=== PATIENT | male | born 1950 | race Caucasian/White ===

== ENCOUNTER → 2018-07-05 06:57 | Outpatient (CLI) | payer MEDICARE, OTHER, SELFPAY ==
[2018-07-05 08:14] LABS: Add Manual Diff / Slide Review NO; Basophils Percent Auto 0.6 % (0-2); Eosinophils Percent Auto 3.3 % (2-4); Hematocrit 46.9 % (41-53); Hemoglobin 16.2 g/dL (13.5-17.5); Lymphocytes Percent Auto 24.8 % (25-40); Mean Corpuscular HGB Conc 34.4 % (30-36); Mean Corpuscular Hemoglobin 31.6 PG (26-34); Mean Corpuscular Volume 91.6 fL (80-100); Monocytes Percent Auto 11.1 % (3-14); Neutrophils Absolute Auto 2600 /uL (3000-5900); Neutrophils Percent Auto 60.2 % (50-75); Platelet Count 271 X10^3/uL (150-400); Red Blood Cell Count 5.12 X10^6/uL (4.5-5.9); Red Cell Distribution Width 13.1 % (11.6-14.8); White Blood Cell Count 4.3 X10^3/uL (4.5-11.0)
[2018-07-05 08:25] LABS: Alanine Aminotransferase 47 IU/L (21-72); Albumin 4.4 g/dL (3.5-5.0); Albumin Globulin Ratio 1.5 (1.0-2.8); Alkaline Phosphatase 66 U/L (38-126); Aspartate Aminotransferase 33 IU/L (17-59); Bilirubin Total 0.9 mg/dL (0.2-1.3); Blood Urea Nitrogen 22 mg/dL (9-20); Calcium 8.9 mg/dL (8.4-10.2); Carbon Dioxide 27 mmol/L (22-32); Chloride 107 mmol/L (98-107); Cholesterol 173 mg/dL (140-199); Estimated Glomerular Filt Rate > 60.0 mL/min (>60); Glucose 96 mg/dL (80-110); HDL Cholesterol 37 mg/dL (40-60); HEMOLYSIS < 15 (0-50); LDL Cholesterol Calculated 99 mg/dL (<100); Potassium 4.7 mmol/L (3.4-5.1); Sodium 143 mmol/L (137-145); Total Protein 7.4 g/dL (6.3-8.2); Triglycerides 187 mg/dL (35-150)
[2018-07-05 08:53] LABS: TSH w/ Reflex to FT4 3.42 uIU/mL (0.47-4.68)
== END ==
PROVIDERS: PCP Family Medicine; Visit Provider Family Medicine
DX: E78.5 Hyperlipidemia, unspecified (principal)
CPT/HCPCS: 36415; 80053; 80061; 84153; 84443; 85025

== ENCOUNTER → 2020-03-24 08:11 | Outpatient (CLI) | payer MEDICARE, OTHER, SELFPAY ==
[2020-03-24 08:48] LABS: Add Manual Diff / Slide Review NO; Basophils Absolute Auto 0 /uL (0-100); Basophils Percent Auto 0.8 % (0-2); Eosinophils Absolute Auto 100 /uL (0-450); Eosinophils Percent Auto 2.9 % (2-4); Hematocrit 46.7 % (41-53); Lymphocytes Absolute Auto 1200 /uL (1100-4500); Lymphocytes Percent Auto 29.8 % (25-40); Mean Corpuscular HGB Conc 34.2 % (30-36); Mean Corpuscular Hemoglobin 31.8 PG (26-34); Mean Corpuscular Volume 92.9 fL (80-100); Monocytes Absolute Auto 500 /uL (0-900); Monocytes Percent Auto 11.1 % (3-14); Neutrophils Absolute Auto 2300 /uL (1500-7000); Neutrophils Percent Auto 55.4 % (50-75); Platelet Count 235 X10^3/uL (150-400); Red Blood Cell Count 5.02 X10^6/uL (4.5-5.9); Red Cell Distribution Width 13.3 % (11.6-14.8); White Blood Cell Count 4.1 X10^3/uL (4.5-11.0)
[2020-03-24 09:17] LABS: Alanine Aminotransferase 32 IU/L (<50); Albumin 4.2 g/dL (3.5-5.0); Albumin Globulin Ratio 1.6 (1.0-2.8); Alkaline Phosphatase 72 U/L (38-126); Aspartate Aminotransferase 29 IU/L (17-59); BUN Creatinine Ratio 18.6 (6-22); Blood Urea Nitrogen 19 mg/dL (9-20); Calcium 9.5 mg/dL (8.4-10.2); Carbon Dioxide 28 mmol/L (22-32); Chloride 106 mmol/L (98-107); Cholesterol 201 mg/dL (140-199); Estimated Glomerular Filt Rate > 60.0 mL/min (>60); Globulin 2.7 g/dL (1.7-4.1); Glucose 108 mg/dL (80-110); HDL Cholesterol 46 mg/dL (40-60); HEMOLYSIS < 15 (0-50); LDL Cholesterol Calculated 121 mg/dL (<100); Potassium 4.1 mmol/L (3.4-5.1); Sodium 139 mmol/L (137-145); Total Protein 6.9 g/dL (6.3-8.2); Triglycerides 171 mg/dL (35-150)
[2020-03-24 09:42] LABS: TSH w/ Reflex to FT4 4.27 uIU/mL (0.47-4.68)
== END ==
PROVIDERS: PCP Family Medicine; Referring Provider Family Medicine; Visit Provider Family Medicine
DX: E78.5 Hyperlipidemia, unspecified (principal)
CPT/HCPCS: 36415; 80053; 80061; 84443; 85025

== ENCOUNTER → 2020-11-17 12:54 | Outpatient (CLI) | payer MEDICARE, OTHER, SELFPAY ==
[2020-11-17] MEDS: COVID-19 VACC #1, MRNA(MOD) 100 MCG/0.5 ML VIAL IM (13:06)
== END ==
PROVIDERS: PCP Family Medicine; Visit Provider Internal Medicine
DX: Z23 Encounter for immunization (principal)
CPT/HCPCS: 0011A; 91301

== ENCOUNTER → 2020-12-15 12:04 | Outpatient (CLI) | payer MEDICARE, OTHER, SELFPAY ==
[2020-12-15] MEDS: COVID-19 VACC #2, MRNA(MOD) 100 MCG/0.5 ML VIAL IM (12:13)
== END ==
PROVIDERS: PCP Family Medicine; Visit Provider Internal Medicine
DX: Z23 Encounter for immunization (principal)
CPT/HCPCS: 0012A; 91301

== ENCOUNTER → 2021-05-02 08:47 | Outpatient (CLI) | payer MEDICARE, OTHER, SELFPAY ==
[2021-05-02 09:43] LABS: Add Manual Diff / Slide Review NO; Basophils Absolute Auto 0 /uL (0-100); Basophils Percent Auto 0.6 % (0-2); Eosinophils Absolute Auto 200 /uL (0-450); Eosinophils Percent Auto 4.5 % (2-4); Hematocrit 48.6 % (41-53); Hemoglobin 16.7 g/dL (13.5-17.5); Lymphocytes Absolute Auto 1200 /uL (1100-4500); Lymphocytes Percent Auto 26.5 % (25-40); Mean Corpuscular HGB Conc 34.3 % (30-36); Mean Corpuscular Hemoglobin 31.8 PG (26-34); Mean Corpuscular Volume 92.8 fL (80-100); Monocytes Absolute Auto 600 /uL (0-900); Neutrophils Absolute Auto 2400 /uL (1500-7000); Neutrophils Percent Auto 55.4 % (50-75); Platelet Count 220 X10^3/uL (150-400); Red Blood Cell Count 5.23 X10^6/uL (4.5-5.9); Red Cell Distribution Width 13.2 % (11.6-14.8); White Blood Cell Count 4.4 X10^3/uL (4.5-11.0)
[2021-05-02 10:00] LABS: Alanine Aminotransferase 35 IU/L (<50); Albumin 4.2 g/dL (3.5-5.0); Albumin Globulin Ratio 1.4 (1.0-2.8); Alkaline Phosphatase 70 U/L (38-126); Aspartate Aminotransferase 33 IU/L (17-59); BUN Creatinine Ratio 22.3 (6-22); Blood Urea Nitrogen 23 mg/dL (9-20); Calcium 9.7 mg/dL (8.4-10.2); Carbon Dioxide 28 mmol/L (22-32); Chloride 108 mmol/L (98-107); Estimated Glomerular Filt Rate > 60.0 mL/min (>60); Globulin 3.1 g/dL (1.7-4.1); Glucose 110 mg/dL (80-110); HEMOLYSIS 15 (0-50); Lipase 47 U/L (23-300); Sodium 142 mmol/L (137-145); Total Protein 7.3 g/dL (6.3-8.2)
[2021-05-02 10:27] LABS: Prostate Specific Antigen Scrn 0.702 ng/mL (0.1-4.0)
[2021-05-02 10:42] LABS: TSH w/ Reflex to FT4 4.56 uIU/mL (0.47-4.68)
== END ==
PROVIDERS: PCP Family Medicine; Referring Provider Family Medicine; Visit Provider Family Medicine
DX: E78.5 Hyperlipidemia, unspecified (principal); Z12.5 Encounter for screening for malignant neoplasm of prostate
CPT/HCPCS: 36415; 80053; 83690; 84443; 85025; G0103

== ENCOUNTER → 2021-10-10 09:22 | Outpatient (CLI) | payer MEDICARE, OTHER, SELFPAY ==
[2021-10-10 12:07] LABS: COVID19 -Nasal RAPID Negative (Negative)
== END ==
PROVIDERS: PCP Family Medicine; Visit Provider Family Medicine Sleep Medicine
DX: Z20.822 Contact with and (suspected) exposure to COVID-19 (principal)
CPT/HCPCS: 87635; C9803

== ENCOUNTER 2021-10-11 08:57 | Day surgery (SDC) | payer MEDICARE, OTHER, SELFPAY ==
[2021-10-11] MEDS: PROPARACAINE 0.5% OPHTH SOL 2 DROPS EYE-OP (09:55)
[2021-10-11 10:01] VITALS: BP 140/92; PULSE 79; RESP 16; TEMP 36.9; O2SAT 96; BMI 31.1
[2021-10-11] MEDS: CATARACT EYE COMPOUND (10 DROPS/SYRINGE) 3 DROPS EYE-OP (10:18)
--- NOTE | 2021-10-11 10:47 | P.OP.PRE_ITS ---
Pre-operative Note Interval Note History & Physical reviewed/Exam performed by Physician: Yes Changes to H&P: No Addendum Addendum Note: There are no non surgical alternatives to the patient's condition. Deteriora tion of the patient's condition is expected. Delay may result in more complex future surgery.
--- NOTE | 2021-10-11 10:48 | PM.OP.1 ---
Operative Date/Time/Diagnoses Pre-op diagnosis: Nuclear cataract right eye Procedure & Clinicians Procedure: Cataract Surgery Same procedure as scheduled: Yes Surgeon: Andi Dalton Anesthesia Type: MAC +/- and Sedation Operative Notes Procedure in detail: Patient brought to the operating suite. Tetracaine drops placed in the right eye. Patient was prepped and draped in sterile manner. Wire lid speculum was placed in the eye. Betadine drops were placed on the eye. This was irrigated. Lidocaine jelly was placed on the eye. A paracentesis port was created with a side-port blade. 0.1 mL 1% preservative free lidocaine was injected into the anterior chamber. The anterior chamber was deepened with viscoelastic. 2.6 mm keratome was used to create a temporal clear corneal incision. Cystotome and Utrata forceps were used to create continuous tear capsulorrhexis. Balanced salt solution was used to hydro dissect the nucleus. The phacoemulsification handpiece was inserted and the nucleus was removed using the stop and chop technique. The irrigation aspiration handpiece was inserted and the remaining cortex was removed. Anterior chamber was deepened with viscoelastic. An Hebert [id number] intraocular lens with a power of 20.5 was injected into the capsular bag. Irrigation aspiration handpiece was inserted and the remaining viscoelastic was removed. Incision was hydrated with balanced salt solution and found to be leak free with pressure with Weck-Fannie sponges. 0.1 mL Vigamox injected anterior chamber. 0.3 mL Kenalog 10 mg was injected subconjunctivally. Lid speculum was removed. The patient left the operating room in excellent condition. Complications: none Post-operative Condition: stable Disposition: same day surgery
[2021-10-11] MEDS: MOXIFLOXACIN INJ 4 MG/0.8 ML VIAL 0.5 MG EYE-OP (10:59)
[2021-10-11] MEDS: HYALURONATE SODIUM 30 MG-10 MG/ML SYRINGES 1 BOX INTRAOCULA (10:59)
[2021-10-11] MEDS: TRIAMCINOLONE 50 MG/5 ML VIAL INJ (11:00)
[2021-10-11] MEDS: BALANCED SALT IRRIG SOLN NO.2 500 ML, EPINEPHrine 1 MG IRR (11:00)
[2021-10-11] MEDS: PHENYLEPHRINE/LIDOCAINE VIAL (OR) 0.2 ML EYE-OP (11:00)
[2021-10-11] MEDS: TETRACAINE 0.5% OPHTH DROPS 4 ML 2 DROPS EYE-OP (11:00)
[2021-10-11] MEDS: LIDOCAINE 2% (GLYDO) 6 ML GEL TOP (11:01)
[2021-10-11 11:21] VITALS: BP 130/89; PULSE 69; RESP 16; TEMP 36.6; O2SAT 97
== END 2021-10-11 11:47 | disposition home or self-care (01) ==
PROVIDERS: PCP Family Medicine; Referring Provider Ophthalmology; Visit Provider Ophthalmology
PROC: (CPT 66984; principal; 2021-10-11 10:45)
DX: H25.11 Age-related nuclear cataract, right eye (principal)
CPT/HCPCS: 66984; J0171; J2250; J3301

== ENCOUNTER → 2021-10-24 13:58 | Outpatient (CLI) | payer MEDICARE, OTHER, SELFPAY ==
[2021-10-24 16:39] LABS: COVID19 -Nasal RAPID Negative (Negative)
== END ==
PROVIDERS: PCP Family Medicine; Visit Provider Family Medicine Sleep Medicine
DX: Z20.822 Contact with and (suspected) exposure to COVID-19 (principal)
CPT/HCPCS: 87635; C9803

== ENCOUNTER → 2021-10-25 08:21 | Day surgery (SDC) | payer MEDICARE, OTHER, SELFPAY ==
[2021-10-25] MEDS: CATARACT EYE COMPOUND (10 DROPS/SYRINGE) 3 DROPS EYE-OP (09:05)
[2021-10-25] MEDS: PROPARACAINE 0.5% OPHTH SOL 2 DROPS EYE-OP (09:05)
[2021-10-25 09:16] VITALS: BP 142/92; PULSE 70; RESP 18; TEMP 36.4; O2SAT 99; BMI 32.1
--- NOTE | 2021-10-25 10:10 | P.OP_ITS ---
Operative Date/Time/Diagnoses Pre-op diagnosis: Nuclear Cataract Left eye Post-op diagnosis: same Procedure & Clinicians Surgeon: Andi Dalton Anesthesia Type: MAC +/- and Sedation Operative Notes Procedure in detail: Patient brought to the operating suite. Tetracaine drops placed in the left eye. Marking instrument was used to rodo the vertical and horizontal meridians. Patient was prepped and draped in sterile manner. Wire lid speculum was placed in the eye. Marking instrument was used to rodo the 150 degree meridian. Betadine drops were placed on the eye. This was irrigated. Lidocaine jelly was placed on the eye. A paracentesis port was created with a side-port blade. 0.1 mL 1% preservative free lidocaine was injected into the anterior chamber. The anterior chamber was deepened with viscoelastic. 2.6 mm keratome was used to create a temporal clear corneal incision. Cystotome and Utrata forceps were used to create continuous tear capsulorrhexis. Balanced salt solution was used to hydro dissect the nucleus. The phacoemulsification handpiece was inserted and the nucleus was removed using the stop and chop technique. The irrigation aspiration handpiece was inserted and the remaining cortex was removed. Anterior chamber was deepened with viscoelastic. An Hebert [id number] intraocular lens with a power of 20.0 was injected into the capsular bag. Irrigation aspiration reyes ndpiece was inserted and the remaining viscoelastic was removed. The lens was rotated to the 150 degree meridian. Incision was hydrated with balanced salt solution and found to be leak free with pressure with Weck-Fannie sponges. 0.1 mL Vigamox injected anterior chamber. 0.3 mL Kenalog 10 mg was injected subconjunctivally. Lid speculum was removed. The patient left the operating room in excellent condition. Complications: none Post-operative Condition: stable Disposition: same day surgery
--- NOTE | 2021-10-25 10:10 | PM.PREOP ---
Pre-operative Note Interval Note History & Physical reviewed/Exam performed by Physician: Yes Changes to H&P: No
--- NOTE | 2021-10-25 12:44 | SUR.PREOP ---
1239 late entry: case cancelled due to abnormal humidity in the ORs. Pt stable on feet, voided. Ambulated from department. Pleasant and understanding.
--- NOTE | 2021-10-25 12:44 | SUR.PREOP ---
Pt's case is cancelled and pt left in stable condition.
== END | disposition home or self-care (01) ==
PROVIDERS: PCP Family Medicine; Referring Provider Ophthalmology; Visit Provider Ophthalmology
DX: H25.12 Age-related nuclear cataract, left eye (principal); Z53.09 Procedure and treatment not carried out because of other contraindication
CPT/HCPCS: 66984; J2250

== ENCOUNTER → 2021-10-31 09:37 | Outpatient (CLI) | payer MEDICARE, OTHER, SELFPAY ==
[2021-10-31 10:36] LABS: COVID19 -Nasal RAPID Negative (Negative)
== END ==
PROVIDERS: PCP Family Medicine; Visit Provider Surgery
DX: Z01.812 Encounter for preprocedural laboratory examination (principal); Z20.822 Contact with and (suspected) exposure to COVID-19
CPT/HCPCS: 87635; C9803

== ENCOUNTER 2021-11-01 08:09 | Day surgery (SDC) | payer MEDICARE, OTHER, SELFPAY ==
--- NOTE | 2021-11-01 | PATH_ITS ---
[facility] Accession Number: [id number] No. of containers..02 Tissue . 01 Material submitted: . PART A: colon - ASCENDING COLON POLYP PART B: sigmoid colon - SIGMOID COLON POLYP . 02 Diagnosis: A. Ascending Colon Polyp, Polypectomy: Tubular adenoma. . B. Sigmoid Colon Polyp, Polypectomy: Tubular adenoma. [facility] 11/04/2021 1542 Local . 02 Electronically signed: . Norah Blackburn MD, Pathologist NPI- [id number] . 01 Gross description: . Part A: ASCENDING COLON POLYP: Received in formalin are 3 fragment(s) of eugene, soft tissue measuring 0.5 x 0.2 x 0.2 cm to 0.1 x 0.1 x 0.1 cm submitted entirely in 1 cassette(s) Part B: SIGMOID COLON POLYP: Received in formalin is 1 fragment(s) of eugene, soft tissue measuring 0.3 x 0.3 x 0.2 cm submitted entirely in 1 cassette(s) /CPE 11/03/2021 1416 Local . 02 Pathologist provided ICD-10: D12.2, D12.5 . 02 CPT . 685960, 853974 Specimen Comment: A courtesy copy of this report has been sent to [phone] Performed at: 01 [facility] [address], [place], [place] [id number] MD Derik Nicole MD Phone: [phone] Performed at: 02 [facility] [address] [place], [place] [id number] MD Lori Lucero MD Phone: [phone]
[2021-11-01 08:25] VITALS: BMI 31.8
[2021-11-01] MEDS: LACTATED RINGERS 1,000 ML 200 ML IV (08:37)
[2021-11-01 08:41] VITALS: BP 138/80; PULSE 73; RESP 18; TEMP 36.7; O2SAT 98
--- NOTE | 2021-11-01 09:33 | P.HP_ITS ---
History of Present Illness History of Present Illness Date Patient Seen: 11/01/21 Time Patient Seen: 09:33 Chief complaint: SDC Narrative: The patient presents for colorectal sreening. Previous colonoscopy normal 12 - 15 years ago. No personal or family history of colon cancer. On further history denies any recent gastrointestinal symptoms. No nausea, vomiting, abdominal pain, loss of appetite, unexplained weight loss, change in bowel habits, diarrhea, constipation, melena, hematochezia, or bright red blood per rectum. Patient History Medical History (Updated 11/01/21 @ 08:26 by Nila García RN) Hearing loss History of COVID-19 (~08/28/21) Vertigo Surgical History (Updated 11/01/21 @ 08:24 by Nila García RN) History of repair of left rotator cuff Status post cataract extraction and insertion of intraocular lens of right eye Family & Social History Social History: household members none Tobacco & Substance use: Tobacco type cigars Smoking Status Current some day smoker alcohol intake current alcohol intake frequency a few times a week Substance Use Type marijuana Meds Home Medications and Allergies Home Medications Medication Instructions Recorded Confirmed Type No Known Home Medications 03/10/20 11/01/21 History Allergies Allergy/AdvReac Type Severity Reaction Status Date / Time No Known Drug Allergies Allergy Verified 11/01/21 08:18 Exam Vital Signs (past 8 hours): - 11/01/21 08:41 Temperature 98.0 F Pulse Rate 73 Respiratory Rate 18 Blood Pressure 138/80 Pulse Oximetry 98 Oxygen Delivery Method Room Air Narrative Exam Narrative: GENERAL: Obese male in no apparent distress HEENT: No scleral icterus CV: Regular rate, no peripheral edema LUNGS: No increased work of breathing. Patient speaks in full sentences without oxygen support. ABDOMEN: Soft, non-tender, non-distended NEURO: Nonfocal, normal strength throughout, SKIN: Warm and dry Assessment & Plan Assessment & Plan narrative: The patient requires colorectal screening and colonoscopy is recommended. Technical details were discussed. Risks, benefits, alternatives explained. Risks including but not limited to myocardial infarction, aspiration, bleeding, pain, missed lesion, incomplete examination, need for further radiographic studies, colonic perforation, and need for major abdominal surgery were discussed. All questions were answered to their satisfaction, and they are in agreement with this plan. Time Spent With Patient Critical Care time: I spent a total of [] minutes of critical care time on this patient's care today; this time is exclusive of procedural time.
[2021-11-01] MEDS: fentaNYL 250 MCG/5 ML INJ IV (09:54)
[2021-11-01] MEDS: MIDAZOLAM 5 MG/5 ML VIAL IV (09:56)
--- NOTE | 2021-11-01 10:04 | PM.OP.COLON ---
Operative Date/Time/Diagnoses Date of procedure: 11/01/21 Time of procedure: 10:04 Pre-op diagnosis: Screening colonoscopy Post-op diagnosis: same Procedure & Clinicians Study performed: Colonoscopy Same procedure as scheduled: Yes Indications: Screening Surgeon: Dallas Raphael Procedure Notes Procedure in detail: Medications: Conscious sedation using 4mg IV midazolam and 100mcg IV of fentanyl The history and physical was performed/updated and the patient is ASA class is 1. The procedure was discussed in detail with the patient. Potential risks complications including infection, bleeding, missed diagnosis, perforation, need for surgery, and were explained. Their questions were answered and informed consent was obtained. Patient was brought to the procedure room and placed standard monitoring equipment. The patient's vital signs were monitored continuously throughout the entire procedure. Prior to starting time-out was performed. The patient was placed in the left lateral recumbent position. Procedural sedation was administered. Examination began with a thorough inspection of the perianal area there was no evidence of fissures, fistulae, external hemorrhoids or cutaneous malignancy. The colonoscopy scope was then placed into the anal canal and was advanced to the cecum, which was identified by the ileocecal valve, the appendiceal orifice and the confluence of the taenia. The scope was then slowly withdrawn examining colon thoroughly in all directions, irrigating it of any residual stool. FINDINGS 1. Two polyps in the ascending colon both less than 1 cm removed with combination of snare cold and Jumbo forceps. 2. One polyp in the sigmoid colon 5 mm removed with Jumbo forceps The patient tolerated the procedure well. They will be discharged once criteria are met. The prep was of good/excellent quality. The withdrawl time was 11 minutes. The sedation time was 19 minutes. Specimen(s): other (Ascending colon, sigmoid colon polyps) Complications: none Impression: Colonic polyps Post-procedure Recommendations: Colonoscopy in 3 years Disposition: same day surgery
[2021-11-01 10:08] VITALS: BP 126/83; PULSE 69; RESP 12; TEMP 35.9; O2SAT 93
[2021-11-01 10:14] VITALS: BP 120/89; PULSE 69; RESP 15; TEMP 36; O2SAT 95
[2021-11-01 10:19] VITALS: BP 125/82; PULSE 65; RESP 15; O2SAT 96
--- NOTE | 2021-11-01 10:21 | SUR.PHASEI ---
Discharge instructions reviewed with pt and he verbalized understanding. Tolerating ice chips with no c/o nausea noted.
[2021-11-01 10:37] VITALS: BP 129/77; PULSE 79; RESP 18; TEMP 36.9; O2SAT 98
--- NOTE | 2021-11-01 11:10 | SUR.PHASEII ---
Late entry: pt ready to go, belly soft , left in stable condition
== END 2021-11-01 10:45 | disposition home or self-care (01) ==
PROVIDERS: PCP Family Medicine; Referring Provider Surgery; Visit Provider Surgery
PROC: 0DJD8ZZ Inspection of Lower Intestinal Tract, Via Natural or Artificial Opening Endoscopic (ICD-10-PCS; CPT 45378; principal; 2021-11-01 09:15)
DX: Z12.11 Encounter for screening for malignant neoplasm of colon (principal); D12.2 Benign neoplasm of ascending colon; D12.5 Benign neoplasm of sigmoid colon
CPT/HCPCS: 45385; 45380; 99152; J2250; J3010

== ENCOUNTER → 2021-11-07 11:30 | Outpatient (CLI) | payer MEDICARE, SELFPAY ==
[2021-11-07 15:08] LABS: COVID19 -Nasal RAPID Negative (Negative)
== END ==
PROVIDERS: PCP Family Medicine; Visit Provider Family Medicine Sleep Medicine
DX: Z20.822 Contact with and (suspected) exposure to COVID-19 (principal)
CPT/HCPCS: 87635; C9803

== ENCOUNTER 2021-11-08 08:52 | Day surgery (SDC) | payer MEDICARE, OTHER, SELFPAY ==
[2021-11-08 09:39] VITALS: BP 142/93; PULSE 74; RESP 16; TEMP 36.1; O2SAT 98; BMI 31.1
[2021-11-08] MEDS: PROPARACAINE 0.5% OPHTH SOL 2 DROPS EYE-OP (09:45)
[2021-11-08] MEDS: CATARACT EYE COMPOUND (10 DROPS/SYRINGE) 3 DROPS EYE-OP (09:47)
--- NOTE | 2021-11-08 10:39 | PM.PREOP ---
Pre-operative Note Interval Note History & Physical reviewed/Exam performed by Physician: Yes Changes to H&P: No
--- NOTE | 2021-11-08 10:40 | PM.OP.1 ---
Operative Date/Time/Diagnoses Pre-op diagnosis: Nuclear Cataract Left eye Post-op diagnosis: same Procedure & Clinicians Same procedure as scheduled: Yes Surgeon: Andi Dalton Anesthesia Type: MAC +/- and Sedation Operative Notes Procedure in detail: Patient brought to the operating suite. Tetracaine drops placed in the left eye. Marking instrument was used to rodo the vertical and horizontal meridians. Patient was prepped and draped in sterile manner. Wire lid speculum was placed in the eye. Marking instrument was used to rodo 150 degree meridians. Betadine drops were placed on the eye. This was irrigated. Lidocaine jelly was placed on the eye. A paracentesis port was created with a side-port blade. 0.1 mL 1% preservative free lidocaine was injected into the anterior chamber. The anterior chamber was deepened with viscoelastic. 2.6 mm keratome was used to create a temporal clear corneal incision. Cystotome and Utrata forceps were used to create continuous tear capsulorrhexis. Balanced salt solution was used to hydro dissect the nucleus. The phacoemulsification handpiece was inserted and the nucleus was removed using the stop and chop technique. The irrigation aspiration handpiece was inserted and the remaining cortex was removed. Anterior chamber was deepened with viscoelastic. An Hebert [id number] intraocular lens with a power of 20.0 was injected into the capsular bag. Irrigation aspiration handpiece was inserted and the remaining viscoelastic was removed. The lens was rotated to the 150 degree meridian. Incision was hydrated with balanced salt solution and found to be leak free with pressure with Weck-Fannie sponges. 0.1 mL Vigamox injected anterior chamber. 0.3 mL Kenalog 10 mg was injected subconjunctivally. Lid speculum was removed. The patient left the operating room in excellent condition. Complications: none Post-operative Condition: stable Disposition: same day surgery
--- NOTE | 2021-11-08 10:42 | PM.PREOP ---
Pre-operative Note Interval Note History & Physical reviewed/Exam performed by Physician: Yes Changes to H&P: No
[2021-11-08] MEDS: MOXIFLOXACIN INJ 4 MG/0.8 ML VIAL 0.5 MG EYE-OP (10:51)
[2021-11-08] MEDS: HYALURONATE SODIUM 30 MG-10 MG/ML SYRINGES 1 BOX INTRAOCULA (10:51)
[2021-11-08] MEDS: TRIAMCINOLONE 50 MG/5 ML VIAL INJ (10:52)
[2021-11-08] MEDS: PHENYLEPHRINE/LIDOCAINE VIAL (OR) 0.2 ML EYE-OP (10:52)
[2021-11-08] MEDS: BALANCED SALT IRRIG SOLN NO.2 500 ML, EPINEPHrine 1 MG IRR (10:55)
[2021-11-08] MEDS: TETRACAINE 0.5% OPHTH DROPS 4 ML 2 DROPS EYE-OP (10:55)
[2021-11-08] MEDS: LIDOCAINE 2% (GLYDO) 6 ML GEL TOP (10:55)
[2021-11-08 13:10] VITALS: BP 128/88; PULSE 67; RESP 16; TEMP 36.7; O2SAT 96
== END 2021-11-08 13:30 | disposition home or self-care (01) ==
PROVIDERS: PCP Family Medicine; Referring Provider Ophthalmology; Visit Provider Ophthalmology
PROC: (CPT 66984; principal; 2021-11-08 10:45)
DX: H25.12 Age-related nuclear cataract, left eye (principal)
CPT/HCPCS: 66984; J0171; J2250; J3301; V2787

== ENCOUNTER → 2023-03-02 10:14 | Outpatient (CLI) | payer MEDICARE, SELFPAY ==
[2023-03-02 11:08] LABS: Add Manual Diff / Slide Review NO; Basophils Absolute Auto 0 /uL (0-100); Eosinophils Absolute Auto 100 /uL (0-450); Eosinophils Percent Auto 3.1 % (2-4); Hematocrit 43.2 % (41-53); Hemoglobin 15.2 g/dL (13.5-17.5); Lymphocytes Absolute Auto 800 /uL (1100-4500); Lymphocytes Percent Auto 25.2 % (25-40); Mean Corpuscular HGB Conc 35.1 % (30-36); Mean Corpuscular Hemoglobin 31.8 PG (26-34); Mean Corpuscular Volume 90.7 fL (80-100); Monocytes Absolute Auto 400 /uL (0-900); Monocytes Percent Auto 10.6 % (3-14); Neutrophils Absolute Auto 2000 /uL (1500-7000); Neutrophils Percent Auto 60.1 % (50-75); Platelet Count 229 X10^3/uL (150-400); Red Blood Cell Count 4.77 X10^6/uL (4.5-5.9); Red Cell Distribution Width 13.2 % (11.6-14.8); White Blood Cell Count 3.3 X10^3/uL (4.5-11.0)
[2023-03-02 11:38] LABS: Alanine Aminotransferase 23 IU/L (<50); Albumin Globulin Ratio 1.4 (1.0-2.8); Alkaline Phosphatase 60 U/L (38-126); Aspartate Aminotransferase 25 IU/L (17-59); BUN Creatinine Ratio 21.1 (6-22); Bilirubin Total 1.2 mg/dL (0.2-1.3); Blood Urea Nitrogen 20 mg/dL (9-20); Carbon Dioxide 26 mmol/L (22-32); Chloride 104 mmol/L (98-107); Cholesterol 236 mg/dL (140-199); Estimated Glomerular Filt Rate > 60 mL/min (>60); Globulin 2.8 g/dL (1.7-4.1); Glucose 105 mg/dL (80-110); HDL Cholesterol 59 mg/dL (40-60); HEMOLYSIS < 15 (0-50); LDL Cholesterol Calculated 153 mg/dL (<100); Potassium 4.5 mmol/L (3.4-5.1); Sodium 136 mmol/L (137-145); Total Protein 6.8 g/dL (6.3-8.2); Triglycerides 122 mg/dL (35-150)
[2023-03-02 11:51] LABS: TSH w/ Reflex to FT4 2.18 uIU/mL (0.47-4.68)
[2023-03-02 12:06] LABS: Prostate Specific Antigen Scrn 0.677 ng/mL (0.1-4.0)
== END ==
PROVIDERS: PCP Family Medicine; Referring Provider Family Medicine; Visit Provider Family Medicine
DX: E78.5 Hyperlipidemia, unspecified (principal); Z12.5 Encounter for screening for malignant neoplasm of prostate; N40.0 Benign prostatic hyperplasia without lower urinary tract symptoms
CPT/HCPCS: 36415; 80053; 80061; 84443; 85025; G0103

== ENCOUNTER 2023-04-05 15:22 | Emergency (ER) | payer MEDICARE, OTHER, SELFPAY ==
[2023-04-05 15:30] VITALS: BP 123/67; PULSE 57; RESP 16; TEMP 36.8; O2SAT 97; BMI 26.4
--- NOTE | 2023-04-05 15:37 | DI.RAD.S_ITS ---
PROCEDURE: XR SHOULDER RT MIN 2V INDICATIONS: injury, pain TECHNIQUE: 3 views of the shoulder were acquired. COMPARISON: None. FINDINGS: Bones: No fractures or dislocations. No suspicious bony lesions. Visualized ribs appear intact. Soft tissues: No suspicious soft tissue calcifications. IMPRESSION: No visualized acute fracture or dislocation. However, if clinical concern and/or pain persist, short interval imaging followup in 7-10 days is recommended, as occult injury cannot be definitively excluded. Dictated by: Liberty Welch M.D. on 04/05/2023 at 16:23 Approved by: Liberty Welch M.D. on 04/05/2023 at 16:23
--- NOTE | 2023-04-05 17:40 | ED_ITS ---
HPI - Extremity Injury (Upper) <Anais Seymour PA-C - Last Filed: 04/05/23 18:01> General Chief Complaint: Extremity Injury, Upper Stated Complaint: rt shoulder injury Time Seen by Provider: 04/05/23 16:01 Source: family Mode of arrival: Ambulatory History of Present Illness HPI narrative: Patient is a 73-year-old male presents with right shoulder pain after lifting and pulling a boat this afternoon. He felt a pop and immediate pain. He has a history of shoulder pain in the past on the right when he was lifting weights but none recently. He is not taken any medication or done any intervention since the injury. He denies any numbness tingling or weakness in his right upper extremity. His pain is primarily located on his posterior right shoulder, worse with ABduction. Related Data Previous Rx's Medication Instructions Recorded oxycodone-acetaminophen 5 mg-325 1 tab PO TID PRN pain (scale score 04/05/23 mg tablet (Endocet) 7-10) #8 tabs Allergies Allergy/AdvReac Type Severity Reaction Status Date / Time No Known Drug Allergies Allergy Verified 03/01/23 08:31 Review of Systems <Anais Seymour PA-C - Last Filed: 04/05/23 18:01> Review of Systems ROS Unobtainable: All systems reviewed & are unremarkable except as noted in HPI and below Patient History <Anais Seymour PA-C - Last Filed: 04/05/23 18:01> Medical History Hearing loss History of COVID-19 (~08/28/21) Vertigo Surgical History History of repair of left rotator cuff Status post cataract extraction and insertion of intraocular lens of right eye Social History marital status: household members: none Smoking Status: Current some day smoker alcohol intake: current substance use type: does not use Smoking Status: Current some day smoker tobacco type: cigars alcohol intake frequency: a few times a week Substance Use Type: marijuana Exam <Anais Seymour PA-C - Last Filed: 04/05/23 18:01> Narrative Exam Narrative: GENERAL: 73 year old patient appears stated age. Well-developed patient, in no distress NEURO: AOx3. HEAD: Atraumatic. Normocephalic. RESPIRATORY: no distress EXTREMITIES: Pain with palpation of right posterior shoulder and lateral shoulder. Pain with more than 40? of abduction, forward flexion, extension. Right radial pulse +2, strength 5/5 in RUE. SKIN: No rash or erythema of visible areas Initial Vital Signs Initial Vital Signs: Vital Signs Temperature 98.2 F 04/05/23 15:30 Pulse Rate 57 L 04/05/23 15:30 Respiratory Rate 16 04/05/23 15:30 Blood Pressure 123/67 04/05/23 15:30 Pulse Oximetry 97 04/05/23 15:30 Oxygen Delivery Method Room Air 04/05/23 15:30 <DO Corinne Lamar Last Filed: 04/05/23 18:20> Initial Vital Signs Initial Vital Signs: Vital Signs Temperature 98.2 F 04/05/23 15:30 Pulse Rate 57 L 04/05/23 15:30 Respiratory Rate 16 04/05/23 15:30 Blood Pressure 123/67 04/05/23 15:30 Pulse Oximetry 97 04/05/23 15:30 Oxygen Delivery Method Room Air 04/05/23 15:30 Course <Anais Seymour PA-C - Last Filed: 04/05/23 18:01> Orders Ordered: ED Orders 04/05/23 15:37 XR shoulder RT min 2V Stat Vital Signs Vital signs: Vital Signs - 8 hr 04/05/23 15:30 04/05/23 17:47 Temperature 98.2 F Pulse Rate 57 L 59 L Respiratory Rate 16 12 Blood Pressure 123/67 130/69 Pulse Oximetry 97 98 Oxygen Delivery Method Room Air Room Air <DO Corinne Lamar Last Filed: 04/05/23 18:20> Orders Ordered: ED Orders 04/05/23 15:37 XR shoulder RT min 2V Stat Vital Signs Vital signs: Vital Signs - 8 hr 04/05/23 15:30 04/05/23 17:47 Temperature 98.2 F Pulse Rate 57 L 59 L Respiratory Rate 16 12 Blood Pressure 123/67 130/69 Pulse Oximetry 97 98 Oxygen Delivery Method Room Air Room Air MDM - Extremity Injury (Upper) <Anais Seymour PA-C - Last Filed: 04/05/23 18:01> Imaging Data Extremity x-ray #1: Radiologist's Impression: R Shoulder XR: IMPRESSION:? No visualized acute fracture or dislocation. However, if clinical concern and/or pain persist, short interval imaging followup in 7-10 days is recommended, as occult injury cannot be definitively excluded. ? ? Dictated by: Liberty Welch M.D. on 04/05/2023 at 16:23 ? ? MDM Narrative Medical decision making narrative: Multiple etiologies for patient's symptoms considered including, but not limited to: humerus fracture, shoulder dislocation, rotator cuff injury. Suspect rotator cuff injury based on exam and interview today. Imaging reviewed: no acute abnl per radiology Patient placed in sling, to be used for comfort, when ambulating but not all the time. Advised to apply ice every 2 hours for 15 minutes over the next 48 hours then may use heat for comfort. Patient advised to call [facility] to set up urgent ER follow-up consultation. Patient given Percocet #8 on paper script for severe pain not managed by ibuprofen, discussed risks of opiate abuse. Patient's symptoms improved over duration of stay with above-stated therapies. Findings and discharge diagnosis discussed with patient followed by verbalization of understanding Return precautions discussed with patient whom verbalize understanding of diagnosis and plan Discharge Plan Departure Patient Disposition: Home Clinical Impression: Right shoulder injury Instructions: DI for Shoulder Sprain Activity Restrictions/Additional Instructions: *You have been diagnosed with right shoulder pain, likely right rotator cuff injury. Call [facility] for follow-up. Use ice and ibuprofen 600mg every 6 hours for pain and inflammation as discussed. *What to do: *Please continue to take your regular medications as directed. [ ] New medication prescriptions sent to your pharmacy: [ [facility]] [X ] New medication written as a paper prescription [ ] No new medications given *Please follow up with your primary care provider in 2-3 days, call for an appointment. Let them know you were seen in the Emergency Department and that we ask that you be seen in follow up. We will electronically transmit a record of today's note if your PCP is in our system *If you do not have a primary care provider please contact the [facility] Resource line at [phone]. They will ask some questions about your medical history and help get you set up with a doctor in the community. *Return to Emergency Department if you should have any new, worsening or concerning symptoms, such as [fever greater than 101 F, shaking chills, worsening pain, persistent vomiting or other bothersome symptoms] Prescriptions: New oxycodone-acetaminophen [Endocet] 5-325 mg tablet 1 tab PO TID PRN (Reason: pain (scale score 7-10)) Qty: 8 0RF Referrals: [facility] [Provider Group] Juan Carlos Gonzalez MD [Primary Care Provider] - Stand Alone Forms: Patient Portal/API <Ben Borrego DO - Last Filed: 04/05/23 18:20> Cosign ED Attending Cosignature Attestation: Dr Borrego Co-Sign Statement: I was available for consultation during this patient's emergency department visit. This chart is signed by myself for administrative purposes only. I did not have direct contact with this patient during this visit. They were seen independently by the APC.
[2023-04-05 17:47] VITALS: BP 130/69; PULSE 59; RESP 12; O2SAT 98
== END 2023-04-05 17:48 | disposition home or self-care (01) ==
PROVIDERS: Emergency Provider Physician Assistant; PCP Family Medicine
DX: S49.91XA Unspecified injury of right shoulder and upper arm, initial encounter (principal); X50.0XXA Overexertion from strenuous movement or load, initial encounter
CPT/HCPCS: 73030; 99282; 99283

== ENCOUNTER → 2023-04-13 07:26 | Outpatient (CLI) | payer MEDICARE, OTHER, SELFPAY ==
--- NOTE | 2023-04-13 | DI.MRI.S_ITS ---
PROCEDURE: MR SHOULDER RT WO CON INDICATIONS: STRAIN OF RT SHOULDER TECHNIQUE: Noncontrast oblique coronal T2 fast spin echo with fat saturation, oblique sagittal T1 spin echo and T2 fast spin echo with fat saturation, axial T1 spin echo and T2 fast spin echo with fat saturation through the shoulder. COMPARISON: None. FINDINGS: Image quality: Excellent. Rotator cuff: There is full-thickness tearing the mid/posterior supraspinatus tendon the humeral insertion site extending to the musculotendinous junction measuring roughly 15 mm anteroposterior. Mild T2 signal elevation diffusely throughout the infraspinatus tendon is present, indicating tendinopathy. Superimposed low-grade articular surface tearing of the mid and posterior infraspinatus tendon at the musculotendinous junction extending to the muscle belly. Low-grade intrasubstance and articular surface tearing of the upper subscapularis tendon at the humeral insertion site extending to the musculotendinous junction. Teres minor is intact. Supraspinatus atrophy is present. Bones and bursae: No bone marrow contusions or fractures. Mild glenohumeral and moderate acromioclavicular joint degeneration. The acromion demonstrates conventional anatomy, without an os acromiale. No pathologic subacromial-subdeltoid or subcoracoid bursal fluid is present. Capsule and soft tissues: There is undercutting of the mid anterior labrum. Diffuse degenerative fraying of the glenoid labrum is present. The long head of the biceps tendon demonstrates normal location and morphology. The rotator interval appears normal, without fibrosis. The coracohumeral ligament is normal in thickness. IMPRESSION: 1. Full-thickness tearing and atrophy of the supraspinatus tendon. 2. Partial-thickness tearing of the infraspinatus and subscapularis tendons. 3. Possible glenoid labral tearing. 4. Acromioclavicular joint osteoarthritis. Dictated by: Joan Gaspar M.D. on 04/13/2023 at 8:34 Approved by: Joan Gaspar M.D. on 04/13/2023 at 8:47
== END ==
PROVIDERS: PCP Family Medicine; Referring Provider Orthopaedic Surgery; Visit Provider Orthopaedic Surgery
DX: S46.011A Strain of muscle(s) and tendon(s) of the rotator cuff of right shoulder, initial encounter (principal); M19.011 Primary osteoarthritis, right shoulder
CPT/HCPCS: 73221

== ENCOUNTER → 2023-11-26 08:41 | Outpatient (CLI) | payer MEDICARE, OTHER, SELFPAY ==
--- NOTE | 2023-11-26 08:42 | DI.US.S_ITS ---
PROCEDURE: US THYROID INDICATIONS: mass lower right anterior neck TECHNIQUE: Real-time scanning was performed of the thyroid gland, with image documentation. COMPARISON: None. FINDINGS: Thyroid: Right lobe measures 5.8 x 2.3 x 3.5 cm. Left lobe measures 4.6 x 1.8 x 1.5 cm. Isthmus is 0.4 cm thick. Echotexture is heterogeneous. Nodule number: 1 Location: Mid pole right thyroid lobe Size: 2.7 x 1.9 x 2.6 cm Composition: Predominantly cystic Echogenicity: Markedly hypoechoic/anechoic Shape: Wider than tall Margins: Smooth Echogenic foci: None Total points: 2 ACR TI-RADS category: Not suspicious. Nodule number: 2 Location: Medial aspect of mid pole right thyroid lobe. Size: 1.4 x 0.97 x 1.2 cm Composition: Predominantly cystic Echogenicity: Markedly hypoechoic/anechoic Shape: Wider than tall Margins: Smooth Echogenic foci: None Total points: 2 ACR TI-RADS category: Not suspicious Nodule number: 3 Location: Upper pole left thyroid lobe Size: 0.5 x 0.6 x 0.4 cm Composition: Predominantly solid Echogenicity: Hypoechoic Shape: Wider than tall Margins: smooth Echogenic foci: None Total points: 4 ACR TI-RADS category: Moderately suspicious. Nodule number: 4 Location: Upper to mid pole left thyroid lobe Size: 0.8 x 0.5 x 0.5 cm. Composition: Predominantly solid Echogenicity: Isoechoic Shape: Wider than tall Margins: Smooth Echogenic foci: None Total points: 3 ACR TI-RADS category: Mildly suspicious. Nodule number: 5 Location: Mid pole left thyroid lobe Size: 0.8 x 0.8 x 1.2 Composition: Mixed solid and cystic Echogenicity: Hypoechoic Shape: Wider than tall Margins: Irregular Echogenic foci: None Total points: 6 ACR TI-RADS category: Moderately suspicious. IMPRESSION: 1. Heterogeneous thyroid parenchymal echotexture with bilateral thyroid nodules as described above. Ultrasound follow-up at 1, 2, 3 and 5 years interval is recommended. ACR TI-RADS definitions and recommendations: TI-RADS 1 (benign): 0 points. FNA not needed. TI-RADS 2 (not suspicious): 2 points. FNA not needed. TI-RADS 3 (mildly suspicious): 3 points. * FNA if 2.5 cm or larger, follow up if 1.5 cm or larger (at 1, 3, and 5 years). TI-RADS 4 (moderately suspicious): 4-6 points. * FNA if 1.5 cm or larger, follow up if 1 cm or larger (at 1, 2, 3, and 5 years). TI-RADS 5 (highly suspicious): 7 points or more. * FNA if 1 cm or larger, follow up if 0.5 cm or larger (every year for 5 years). Dictated by: Noah Esparza M.D. on 11/26/2023 at 13:18 Approved by: Noah Esparza M.D. on 11/26/2023 at 13:41
== END ==
PROVIDERS: Family Provider Family Medicine; PCP Family Medicine; Referring Provider Physician Assistant; Visit Provider Physician Assistant
DX: R22.1 Localized swelling, mass and lump, neck (principal); E04.2 Nontoxic multinodular goiter
CPT/HCPCS: 76536

== ENCOUNTER 2024-01-29 11:15 | Outpatient (RCR) | payer MEDICARE, OTHER, SELFPAY ==
--- NOTE | 2023-07-09 18:17 | PT.OIE ---
Current Diagnoses Unspecified rotator cuff tear or rupture of right shoulder, not specified as traumatic (07/09/23) Strain of other muscles, fascia and tendons at shoulder and upper arm level, right arm, subsequent encounter (07/09/23) Past Medical History (Last Reviewed 04/05/23 @ 17:50 by Anais Seymour PA-C) Hearing loss History of COVID-19 (~08/28/21) Vertigo Past Surgical History (Last Reviewed 04/05/23 @ 17:50 by Anais Seymour PA-C) History of repair of left rotator cuff Status post cataract extraction and insertion of intraocular lens of right eye Visit Care Team Role Provider Type Juan Carlos Gonzalez MD Family Provider Physician Primary Care Provider Specialty: Family Practice Address: [address] [place] [address], [address], [address] Email: [email or web address] Raoul Maurer MD Attending Provider Physician Referring Provider Specialty: Orthopedics Orthopedic Surgery Address: [address] [place] [address], [address] Email: [email or web address] Physical Therapy Initial Evaluation PT-OP-A Visit Information Start: 07/04/23 17:57 Freq: Status: Active Protocol: Document 07/09/23 12:13 [facility] (Rec: 07/09/23 16:03 [facility] [id number]) Out-Patient Physical Therapy Visit Information Visit Information Visit Type Initial Evaluation Visit Note 09/12 Visit Start Time 12:50 Visit Stop Time 13:35 Total Visit Minutes 45 Visit Number 1 Number of PARKING METER INSTALLER Visits 0 PT-OP-B Current Condition Start: 07/04/23 17:57 Freq: Status: Active Protocol: Document 07/09/23 12:13 [facility] (Rec: 07/09/23 16:03 [facility] [id number]) Current Condition History of Current Condition History of Current Condition Pt was lifting an aluminum boat out in front and heard/ felt it on Apr 03. He had full thickness RCT and had it repaired and subacromial decompression. He had surgery 07/04/23. He reports he took a shower yesterday adn almost paased out. He can't sleep on his back so have been sleeping on his side. Meds have helped w/pain. He has been phasing out of it oxy/tylenol. He takes them as needed. He sees Dr. Mauerr on 07/14. He can dress himself etc. He is R handed. 2004 L R Treatment Goals Patient/Caregiver Goals Goals: fishing, hunting (bow, pistol, rifle), target shooting, fixing things, lifting (dumbells and bands), use arm again (mobility biggest concern) PT-OP-C Subjective Start: 07/04/23 17:57 Freq: Status: Active Protocol: Document 07/09/23 12:13 [facility] (Rec: 07/09/23 16:03 [facility] [id number]) Patient Questionnaires Quick Dash- Upper Extremity Quick Dash UE Score 54.4 OP-PT Pain Assessment Location R shoulder Pain Location Details ant/lat shoulder Description Aching,Sharp Frequency Frequent Other Pain Aggravating Factors lay on back, out of sling, accidently move quick Pain Alleviating Factors Medication,Position PT-OP-F Manual Assessment Start: 07/04/23 17:57 Freq: Status: Active Protocol: Document 07/09/23 12:13 [facility] (Rec: 07/09/23 16:03 [facility] [id number]) Manual Assessments Other Manual Assessments Other Manual Assessments incisions covered w/ steristrips, bruising through brachium to elbow PT-OP-K Range of Motion Start: 07/04/23 17:57 Freq: Status: Active Protocol: Document 07/09/23 12:13 [facility] (Rec: 07/09/23 16:03 [facility] [id number]) Shoulder Goniometric Range of Motion Shoulder Right Passive Flexion 106 External Rotation at 45 degrees 22 Abduction Internal Rotation 22 Comments in scap plane /rotations Left Active Flexion 160 Extension 70 Abduction 180 External Rotation at 90 degrees 86 Abduction Internal Rotation 44 Internal Rotation Behind Back (text) T6 Comments IR at 90 deg PT-OP-Q Treatments Start: 07/04/23 17:57 Freq: Status: Active Protocol: Document 07/09/23 12:13 [facility] (Rec: 07/09/23 16:03 [facility] [id number]) Therapeutic Exercises Sitting Exercises elbow Sitting Exercise Name pronation/supination Side bilateral Reps/Minutes 10 ea scap Sitting Exercise Name 1. retraction 2. rolls Side bilateral Reps/Minutes 10 ea wrist Sitting Exercise Name flex,ext, radial & ulnar deviation Side bilateral Reps/Minutes 10 ea Manual Therapy Treatment Manual Techniques PROM Type flex, ER/IR in scapular plane Reps/Duration 5 min Self-Care/Home Management Treatment Education Other Education 8 min:discussion of expected progression and edu not to use RUE except small things in hand. Edu how to just rest arm to side. edu on how to prop UE in supien and sitting, edu importance of ice and motion of neck, scap and elbows PT-OP-T Assessment and Plan Start: 07/04/23 17:57 Freq: Status: Active Protocol: Document 07/09/23 12:13 [facility] (Rec: 07/09/23 16:03 [facility] [id number]) Physical Therapy Assessment Rehab Potential Rehabilitation Potential Good Evaluation Complexity Number of Personal Factors/Comorbidities 3 or More Number of Body Systems Impaired 4 or More Clinical Presentation at Evaluation Evolving Impairments Impairments Activity Tolerance,Functional Activities,Functional Mobility ,Gait,Posture,ROM,Soft Tissue Mobility,Strength Goals quick dash Impairment 54.54 Short Term Goal (STG) Pt will improve quick dash score to no greater than 35 to show improved functional ability. STG Duration 08/22/23 Nursing Home Goal (LTG) Pt will improve quick dash score to no greater than 20 to show improved functional ability. LTG Duration 10/01/23 strength Short Term Goal (STG) Pt will be indep w/HEP for strength and ROM per PT based on protocol. STG Duration 09/01 Nursing Home Goal (LTG) Pt will score at least 4-/5 on all MMT on RUE to show good start to progression of RUE strength to allow return to household activities w/o inc pain. LTG Duration 10/01/23 ROM Short Term Goal (STG) Pt will have full PROM with no more than 2/10 pain STG Duration 09/01 Piano Mover Goal (LTG) Pt will have full AROM in order to allow pt to return overhead activities and dressing w/o inc pain. LTG Duration 10/01/23 Assessment Summary Assessment Pt presents 5 days s/p R RCR and subacromial decompression with overall good pain control and noted compliance w/sling and no AROM of R shoulder. He has limited PROM as expected at his point after surgery, but is overall doing well with his range. He is typically very active and will require PT to work on ROM, strength and overall functional mobility/stability in order to return back to his level of function that includes: lifting, hunting, fishing, general house improvement. Physical Therapy Plan Frequency and Duration Frequency of Treatment 1-2x/wk Duration of treatment (weeks) 12 Plan of Care Start Date 07/09/23 Plan of Care End Date 10/01/23 Therapeutic Interventions Therapeutic Interventions Gait Training,Home Exercise Program,Joint Mobilizations, Manual Therapy,Neuromuscular Re-education,Patient/Caregiver Education,Self-Care/Home Management,Soft Tissue Mobilization,Taping, Therapeutic Activities, Therapeutic Exercises Modalities Cold Pack/Ice Massage,Electric Stimulation,Hot Packs, Infrared Therapy,Ultrasound Next Visit Focus/Plan Next Note Type Treatment Note Next Visit Plan PROM, train pendulums, gentle joint mobs, STM to UT
--- NOTE | 2023-07-09 18:18 | PT.OPPOC ---
Physical, Occupational & Speech Therapy At [facility] Current Diagnoses Unspecified rotator cuff tear or rupture of right shoulder, not specified as traumatic (07/09/23) Strain of other muscles, fascia and tendons at shoulder and upper arm level, right arm, subsequent encounter (07/09/23) Visit Care Team Role Provider Type Juan Carlos Gonzalez MD Family Provider Physician Primary Care Provider Specialty: Family Practice Address: [address] [place] [address], [address], [address] Email: [email or web address] Raoul Maurer MD Attending Provider Physician Referring Provider Specialty: Orthopedics Orthopedic Surgery Address: [address] [place] [address], [address] Email: [email or web address] Plan Of Care PT-OP-T Assessment and Plan Start: 07/04/23 17:57 Freq: Status: Active Protocol: Document 07/09/23 12:13 [facility] (Rec: 07/09/23 16:03 [facility] [id number]) Physical Therapy Assessment Rehab Potential Rehabilitation Potential Good Evaluation Complexity Number of Personal Factors/Comorbidities 3 or More Number of Body Systems Impaired 4 or More Clinical Presentation at Evaluation Evolving Impairments Impairments Activity Tolerance,Functional Activities,Functional Mobility ,Gait,Posture,ROM,Soft Tissue Mobility,Strength Goals quick dash Impairment 54.54 Short Term Goal (STG) Pt will improve quick dash score to no greater than 35 to show improved functional ability. STG Duration 08/22/23 Residential Goal (LTG) Pt will improve quick dash score to no greater than 20 to show improved functional ability. LTG Duration 10/01/23 strength Short Term Goal (STG) Pt will be indep w/HEP for strength and ROM per PT based on protocol. STG Duration 09/01 Blade Aligner Goal (LTG) Pt will score at least 4-/5 on all MMT on RUE to show good start to progression of RUE strength to allow return to household activities w/o inc pain. LTG Duration 10/01/23 ROM Short Term Goal (STG) Pt will have full PROM with no more than 2/10 pain STG Duration 09/01 Blade Aligner Goal (LTG) Pt will have full AROM in order to allow pt to return overhead activities and dressing w/o inc pain. LTG Duration 10/01/23 Assessment Summary Assessment Pt presents 5 days s/p R RCR and subacromial decompression with overall good pain control and noted compliance w/sling and no AROM of R shoulder. He has limited PROM as expected at his point after surgery, but is overall doing well with his range. He is typically very active and will require PT to work on ROM, strength and overall functional mobility/stability in order to return back to his level of function that includes: lifting, hunting, fishing, general house improvement. Physical Therapy Plan Frequency and Duration Frequency of Treatment 1-2x/wk Duration of treatment (weeks) 12 Plan of Care Start Date 07/09/23 Plan of Care End Date 10/01/23 Therapeutic Interventions Therapeutic Interventions Gait Training,Home Exercise Program,Joint Mobilizations, Manual Therapy,Neuromuscular Re-education,Patient/Caregiver Education,Self-Care/Home Management,Soft Tissue Mobilization,Taping, Therapeutic Activities, Therapeutic Exercises Modalities Cold Pack/Ice Massage,Electric Stimulation,Hot Packs, Infrared Therapy,Ultrasound Next Visit Focus/Plan Next Note Type Treatment Note Next Visit Plan PROM, train pendulums, gentle joint mobs, STM to UT Plan of Care Dates Plan of Care Start Date 07/09/23 Plan of Care End Date 10/01/23 Electronically Signed by: Darcy Sorensen, PT 07/09/23 3805 If you are in agreement with this Plan of Care, please return a signed and dated copy. I have reviewed this Plan of Care and certify that the skilled therapy services above are required to meet the patient?s needs. Physician Signature Date Printed Name and Credentials Clinical Instructor Signature Printed Name and Credentials
--- NOTE | 2023-07-12 16:38 | PT.OTN ---
Addendum entered and electronically signed by Darcy Sorensen, PT 07/12/23 16:50: PT direct supervision and direction to PT student. Original Note: Current Diagnoses Unspecified rotator cuff tear or rupture of right shoulder, not specified as traumatic (07/12/23) Strain of other muscles, fascia and tendons at shoulder and upper arm level, right arm, subsequent encounter (07/12/23) Physical Therapy Treatment Note PT-OP-A Visit Information Start: 07/04/23 17:57 Freq: Status: Active Protocol: Document 07/12/23 14:24 BS (Rec: 07/12/23 14:33 BS [id number]) Out-Patient Physical Therapy Visit Information Visit Information Visit Type Treatment Note Visit Start Time 11:32 Visit Stop Time 12:16 Total Visit Minutes 44 Visit Number 2 Number of FIELD HEALTH OFFICER Visits 0 PT-OP-B Current Condition Start: 07/04/23 17:57 Freq: Status: Active Protocol: Document 07/09/23 12:13 [facility] (Rec: 07/09/23 16:03 [facility] [id number]) Current Condition History of Current Condition History of Current Condition Pt was lifting an aluminum boat out in front and heard/ felt it on Apr 03. He had full thickness RCT and had it repaired and subacromial decompression. He had surgery 07/04/23. He reports he took a shower yesterday adn almost paased out. He can't sleep on his back so have been sleeping on his side. Meds have helped w/pain. He has been phasing out of it oxy/tylenol. He takes them as needed. He sees Dr. Maurer on 07/14. He can dress himself etc. He is R handed. 2004 L RCR Treatment Goals Patient/Caregiver Goals Goals: fishing, hunting (bow, pistol, rifle), target shooting, fixing things, lifting (dumbells and bands), use arm again (mobility biggest concern) PT-OP-C Subjective Start: 07/04/23 17:57 Freq: Status: Active Protocol: Document 07/12/23 14:24 BS (Rec: 07/12/23 14:33 BS [id number]) OP-PT Subjective Patient Comments Patient Comments Pt shoulder was sore after initial eval. Overall has been doign well and tries to move elbow, wrist, & hand around throughout the day PT-OP-F Manual Assessment Start: 07/04/23 17:57 Freq: Status: Active Protocol: Document 07/09/23 12:13 [facility] (Rec: 07/09/23 16:03 [facility] [id number]) Manual Assessments Other Manual Assessments Other Manual Assessments incisions covered w/ steristrips, bruising through brachium to elbow PT-OP-K Range of Motion Start: 07/04/23 17:57 Freq: Status: Active Protocol: Document 07/09/23 12:13 [facility] (Rec: 07/09/23 16:03 [facility] [id number]) Shoulder Goniometric Range of Motion Shoulder Right Passive Flexion 106 External Rotation at 45 degrees 22 Abduction Internal Rotation 22 Comments in scap plane /rotations Left Active Flexion 160 Extension 70 Abduction 180 External Rotation at 90 degrees 86 Abduction Internal Rotation 44 Internal Rotation Behind Back (text) T6 Comments IR at 90 deg PT-OP-Q Treatments Start: 07/04/23 17:57 Freq: Status: Active Protocol: Document 07/12/23 14:24 BS (Rec: 07/12/23 14:33 [id number]) Therapeutic Exercises Sitting Exercises elbow Sitting Exercise Name flex/ext & pronation/ supination Side right Reps/Minutes x10 scap Sitting Exercise Name 1. retraction 2. rolls Side bilateral Reps/Minutes 5 ea Standing Exercises Pendulums Standing Exercise Name Shoulder pendulums A<>P & lat Side right Reps/Minutes 5 min Manual Therapy Treatment Manual Techniques PROM Type flex, scaption, ER/IR in scapular plane Reps/Duration 35 min PT-OP-T Assessment and Plan Start: 07/04/23 17:57 Freq: Status: Active Protocol: Document 07/12/23 14:24 BS (Rec: 07/12/23 14:33 BS [id number]) Physical Therapy Assessment Goals quick dash Impairment 54.54 Short Term Goal (STG) Pt will improve quick dash score to no greater than 35 to show improved functional ability. STG Duration 08/22/23 Fpc Goal (LTG) Pt will improve quick dash score to no greater than 20 to show improved functional ability. LTG Duration 10/01/23 strength Short Term Goal (STG) Pt will be indep w/HEP for strength and ROM per PT based on protocol. STG Duration 09/01 Fpc Goal (LTG) Pt will score at least 4-/5 on all MMT on RUE to show good start to progression of RUE strength to allow return to household activities w/o inc pain. LTG Duration 10/01/23 ROM Short Term Goal (STG) Pt will have full PROM with no more than 2/10 pain STG Duration 09/01 Fpc Goal (LTG) Pt will have full AROM in order to allow pt to return overhead activities and dressing w/o inc pain. LTG Duration 10/01/23 Assessment Summary Assessment Pt had a hard time relaxing shoulder and presented with a lot of muscle guarding throughout small PROM of shoulder. As session went on patient was able to relax more through flexion ROM but IR/ER continued to be guarded regardless of position although slowly alowed a little more range. Pt demonstrated good understanding of HEP for elbow & wrist mvmt as well as pendulums with no active shoulder mvmts. Physical Therapy Plan Frequency and Duration Frequency of Treatment 1-2x/wk Duration of treatment (weeks) 12 Plan of Care Start Date 07/09/23 Plan of Care End Date 10/01/23 Next Visit Focus/Plan Next Note Type Treatment Note Next Visit Plan PROM, reassess pendulums, gentle joint mobs, STM to UT
--- NOTE | 2023-07-16 18:09 | PT.OTN ---
Addendum entered and electronically signed by Darcy Sorensen PT 07/17/23 09:20: PT direct supervision and direction to PT student. Original Note: Current Diagnoses Unspecified rotator cuff tear or rupture of right shoulder, not specified as traumatic (07/16/23) Strain of other muscles, fascia and tendons at shoulder and upper arm level, right arm, subsequent encounter (07/16/23) Physical Therapy Treatment Note PT-OP-A Visit Information Start: 07/04/23 17:57 Freq: Status: Active Protocol: Document 07/16/23 11:25 BS (Rec: 07/16/23 12:11 BS [id number]) Out-Patient Physical Therapy Visit Information Visit Information Visit Type Treatment Note Visit Note 11/10 Visit Start Time 11:26 Visit Stop Time 12:07 Total Visit Minutes 41 Visit Number 3 Number of TIRE MOUNTER Visits 0 PT-OP-B Current Condition Start: 07/04/23 17:57 Freq: Status: Active Protocol: Document 07/09/23 12:13 [facility] (Rec: 07/09/23 16:03 [facility] [id number]) Current Condition History of Current Condition History of Current Condition Pt was lifting an aluminum boat out in front and heard/ felt it on Apr 03. He had full thickness RCT and had it repaired and subacromial decompression. He had surgery 07/04/23. He reports he took a shower yesterday adn almost paased out. He can't sleep on his back so have been sleeping on his side. Meds have helped w/pain. He has been phasing out of it oxy/tylenol. He takes them as needed. He sees Dr. Maurer on 07/14. He can dress himself etc. He is R handed. 2004 L RCR Treatment Goals Patient/Caregiver Goals Goals: fishing, hunting (bow, pistol, rifle), target shooting, fixing things, lifting (dumbells and bands), use arm again (mobility biggest concern) PT-OP-C Subjective Start: 07/04/23 17:57 Freq: Status: Active Protocol: Document 07/16/23 11:25 BS (Rec: 07/16/23 12:11 BS [id number]) OP-PT Subjective Patient Comments Patient Comments Pt stopped taking pain meds on the and has been feeling good. Has been out hiking and doing well with that. PT-OP-F Manual Assessment Start: 07/04/23 17:57 Freq: Status: Active Protocol: Document 07/09/23 12:13 [facility] (Rec: 07/09/23 16:03 [facility] [id number]) Manual Assessments Other Manual Assessments Other Manual Assessments incisions covered w/ steristrips, bruising through brachium to elbow PT-OP-K Range of Motion Start: 07/04/23 17:57 Freq: Status: Active Protocol: Document 07/09/23 12:13 [facility] (Rec: 07/09/23 16:03 [facility] [id number]) Shoulder Goniometric Range of Motion Shoulder Right Passive Flexion 106 External Rotation at 45 degrees 22 Abduction Internal Rotation 22 Comments in scap plane /rotations Left Active Flexion 160 Extension 70 Abduction 180 External Rotation at 90 degrees 86 Abduction Internal Rotation 44 Internal Rotation Behind Back (text) T6 Comments IR at 90 deg PT-OP-Q Treatments Start: 07/04/23 17:57 Freq: Status: Active Protocol: Document 07/16/23 11:25 BS (Rec: 07/16/23 12:11 BS [id number]) Manual Therapy Treatment Manual Techniques PROM Type flex, scaption, ER/IR in scapular plane Reps/Duration 39 PT-OP-T Assessment and Plan Start: 07/04/23 17:57 Freq: Status: Active Protocol: Document 07/16/23 11:25 BS (Rec: 07/16/23 12:11 BS [id number]) Physical Therapy Assessment Goals quick dash Impairment 54.54 Short Term Goal (STG) Pt will improve quick dash score to no greater than 35 to show improved functional ability. STG Duration 08/22/23 Usp Goal (LTG) Pt will improve quick dash score to no greater than 20 to show improved functional ability. LTG Duration 10/01/23 strength Short Term Goal (STG) Pt will be indep w/HEP for strength and ROM per PT based on protocol. STG Duration 09/01 Renewal Specialist Goal (LTG) Pt will score at least 4-/5 on all MMT on RUE to show good start to progression of RUE strength to allow return to household activities w/o inc pain. LTG Duration 10/01/23 ROM Short Term Goal (STG) Pt will have full PROM with no more than 2/10 pain STG Duration 09/01 Usp Goal (LTG) Pt will have full AROM in order to allow pt to return overhead activities and dressing w/o inc pain. LTG Duration 10/01/23 Assessment Summary Assessment Pt tolerate PROM better today, still struggles to relax during but with cues for deep breathing and increased contact with arm pt is able to relax. Both Scaption and IR/ ER in scaption were improved today. Pt reported intermittent pain/discomfort but most during periods of muscle guarding. Physical Therapy Plan Frequency and Duration Frequency of Treatment 1-2x/wk Duration of treatment (weeks) 12 Plan of Care Start Date 07/09/23 Plan of Care End Date 10/01/23 Next Visit Focus/Plan Next Note Type Treatment Note Next Visit Plan PROM, reassess pendulums, gentle joint mobs, STM to UT
--- NOTE | 2023-07-18 13:48 | PT.OTN ---
Current Diagnoses Unspecified rotator cuff tear or rupture of right shoulder, not specified as traumatic (07/18/23) Strain of other muscles, fascia and tendons at shoulder and upper arm level, right arm, subsequent encounter (07/18/23) Physical Therapy Treatment Note PT-OP-A Visit Information Start: 07/04/23 17:57 Freq: Status: Active Protocol: Document 07/18/23 13:08 SP (Rec: 07/18/23 13:53 SP [id number]) Out-Patient Physical Therapy Visit Information Visit Information Visit Type Treatment Note Visit Note 12/11 Visit Start Time 13:08 Visit Stop Time 13:48 Total Visit Minutes 40 Visit Number 4 Number of INDUSTRIAL MAINTENANCE ELECTRICIAN Visits 1 PT-OP-B Current Condition Start: 07/04/23 17:57 Freq: Status: Active Protocol: Document 07/09/23 12:13 [facility] (Rec: 07/09/23 16:03 [facility] [id number]) Current Condition History of Current Condition History of Current Condition Pt was lifting an aluminum boat out in front and heard/ felt it on Apr 03. He had full thickness RCT and had it repaired and subacromial decompression. He had surgery 07/04/23. He reports he took a shower yesterday adn almost paased out. He can't sleep on his back so have been sleeping on his side. Meds have helped w/pain. He has been phasing out of it oxy/tylenol. He takes them as needed. He sees Dr. Maurer on 07/14. He can dress himself etc. He is R handed. 2004 L RCR Treatment Goals Patient/Caregiver Goals Goals: fishing, hunting (bow, pistol, rifle), target shooting, fixing things, lifting (dumbells and bands), use arm again (mobility biggest concern) PT-OP-C Subjective Start: 07/04/23 17:57 Freq: Status: Active Protocol: Document 07/18/23 13:08 SP (Rec: 07/18/23 13:53 SP [id number]) OP-PT Subjective Patient Comments Patient Comments Pt said saw Dr Maurer and able to do some forward motions like keyboard. PT-OP-F Manual Assessment Start: 07/04/23 17:57 Freq: Status: Active Protocol: Document 07/09/23 12:13 LR (Rec: 07/09/23 16:03 [facility] [id number]) Manual Assessments Other Manual Assessments Other Manual Assessments incisions covered w/ steristrips, bruising through brachium to elbow PT-OP-K Range of Motion Start: 07/04/23 17:57 Freq: Status: Active Protocol: Document 07/09/23 12:13 [facility] (Rec: 07/09/23 16:03 [facility] [id number]) Shoulder Goniometric Range of Motion Shoulder Right Passive Flexion 106 External Rotation at 45 degrees 22 Abduction Internal Rotation 22 Comments in scap plane /rotations Left Active Flexion 160 Extension 70 Abduction 180 External Rotation at 90 degrees 86 Abduction Internal Rotation 44 Internal Rotation Behind Back (text) T6 Comments IR at 90 deg PT-OP-Q Treatments Start: 07/04/23 17:57 Freq: Status: Active Protocol: Document 07/18/23 13:08 SP (Rec: 07/18/23 13:53 SP [id number]) Therapeutic Exercises Sidelying Exercises scapular ROM Sidelying Exercise Name trialed post manual Side right Resistance AROM- small range Equipment Used sup/inf/pro/retraction Reps/Minutes 1 min Comments improved no pain and good form Sitting Exercises R shld IR/ ER PROM Sitting Exercise Name small range mccullough board allowance Side right Resistance LUE Equipment Used dowel 15 deg Reps/Minutes 10 reps Comments cued abductor wedge sling range- keyboard elbow Sitting Exercise Name flex/ext & pronation/ supination Side right Reps/Minutes x10 scap Sitting Exercise Name 1. retraction 2. rolls Side bilateral Reps/Minutes 1. 5 reps 10 SH 2. 10 reps Comments improved scapular ROM post manual and better understanding, less guarding wrist Sitting Exercise Name flex,ext, radial & ulnar deviation Side bilateral Reps/Minutes 10 ea Standing Exercises Pendulums Standing Exercise Name Shoulder pendulums A<>P & lat- seated best Side right Resistance LUE help RUE Reps/Minutes 5 min Comments good feedback and fluid flow. Manual Therapy Treatment Joint Mobilizations R GH jt Joint small range Direction sup/inf Grade I Body Position Hooklying R scapulothoracic Joint R Direction sup/inf/pro/retract Grade II Body Position L SL Comments manual, AAROM, tactile cues with ed scap retractions. Manual Techniques PROM Type flex, scaption, ER/IR in scapular plane Reps/Duration 39 PT-OP-R Modalities Start: 07/04/23 17:57 Freq: Status: Active Protocol: Document 07/18/23 13:08 SP (Rec: 07/18/23 13:53 SP [id number]) Hot Pack/Cold Pack Treatment CP Location R shld Treatment Duration (minutes) 5 Patient Tolerance Good Comments at times uses at home PT-OP-T Assessment and Plan Start: 07/04/23 17:57 Freq: Status: Active Protocol: Document 07/18/23 13:08 SP (Rec: 07/18/23 13:53 SP [id number]) Physical Therapy Assessment Goals quick dash Impairment 54.54 Short Term Goal (STG) Pt will improve quick dash score to no greater than 35 to show improved functional ability. STG Duration 08/22/23 Home Office Claim Specialist Goal (LTG) Pt will improve quick dash score to no greater than 20 to show improved functional ability. LTG Duration 10/01/23 strength Short Term Goal (STG) Pt will be indep w/HEP for strength and ROM per PT based on protocol. STG Duration 09/01 Home Office Claim Specialist Goal (LTG) Pt will score at least 4-/5 on all MMT on RUE to show good start to progression of RUE strength to allow return to household activities w/o inc pain. LTG Duration 10/01/23 ROM Short Term Goal (STG) Pt will have full PROM with no more than 2/10 pain STG Duration 09/01 Home Office Claim Specialist Goal (LTG) Pt will have full AROM in order to allow pt to return overhead activities and dressing w/o inc pain. LTG Duration 10/01/23 Assessment Summary Assessment Pt responded well to manual and better understanding of scapular ROM and now UT and pec tension guarding/holding support in sling and naturally performing when takes it off. More fluid movement post manual with improved rhomboid and LT facilitation during scap retractions and seated pendulum improved PROM noted with almost no guarding. CP end tx for recovery, good response. Physical Therapy Plan Frequency and Duration Frequency of Treatment 1-2x/wk Duration of treatment (weeks) 12 Plan of Care Start Date 07/09/23 Plan of Care End Date 10/01/23 Therapeutic Interventions Therapeutic Interventions Gait Training,Home Exercise Program,Joint Mobilizations, Manual Therapy,Neuromuscular Re-education,Patient/Caregiver Education,Self-Care/Home Management,Soft Tissue Mobilization,Taping, Therapeutic Activities, Therapeutic Exercises Modalities Cold Pack/Ice Massage,Electric Stimulation,Hot Packs, Infrared Therapy,Ultrasound Next Visit Focus/Plan Next Note Type Treatment Note Next Visit Plan Recheck scapular ROM manual and ed self performance, performance of pendulum and added small range elbow flexion with small range IR/ER use dowel (keyboard motions) POC:PROM, reassess pendulums, gentle joint mobs, STM to UT
--- NOTE | 2023-07-23 18:13 | PT.OTN ---
Addendum entered and electronically signed by Darcy Sorensen PT 07/24/23 08:02: PT direct supervision and direction to PT student. Original Note: Current Diagnoses Unspecified rotator cuff tear or rupture of right shoulder, not specified as traumatic (07/23/23) Strain of other muscles, fascia and tendons at shoulder and upper arm level, right arm, subsequent encounter (07/23/23) Physical Therapy Treatment Note PT-OP-A Visit Information Start: 07/04/23 17:57 Freq: Status: Active Protocol: Document 07/23/23 11:18 BS (Rec: 07/23/23 12:12 BS [id number]) Out-Patient Physical Therapy Visit Information Visit Information Visit Type Treatment Note Visit Note 01/10 Visit Start Time : Visit Stop Time 12:07 Total Visit Minutes 47 Visit Number 5 Number of NAME PLATE STAMPING MACHINE OPERATOR Visits 0 PT-OP-B Current Condition Start: 07/04/23 17:57 Freq: Status: Active Protocol: Document 07/09/23 12:13 [facility] (Rec: 07/09/23 16:03 [facility] [id number]) Current Condition History of Current Condition History of Current Condition Pt was lifting an aluminum boat out in front and heard/ felt it on Apr 03. He had full thickness RCT and had it repaired and subacromial decompression. He had surgery 07/04/23. He reports he took a shower yesterday adn almost paased out. He can't sleep on his back so have been sleeping on his side. Meds have helped w/pain. He has been phasing out of it oxy/tylenol. He takes them as needed. He sees Dr. Maurer on 07/14. He can dress himself etc. He is R handed. 2004 L RCR Treatment Goals Patient/Caregiver Goals Goals: fishing, hunting (bow, pistol, rifle), target shooting, fixing things, lifting (dumbells and bands), use arm again (mobility biggest concern) PT-OP-C Subjective Start: 07/04/23 17:57 Freq: Status: Active Protocol: Document 07/23/23 11:18 BS (Rec: 07/23/23 12:12 BS [id number]) OP-PT Subjective Patient Comments Patient Comments Pt been doing well, tired of the sling but overall things are going well. PT-OP-F Manual Assessment Start: 07/04/23 17:57 Freq: Status: Active Protocol: Document 07/09/23 12:13 LR (Rec: 07/09/23 16:03 [facility] [id number]) Manual Assessments Other Manual Assessments Other Manual Assessments incisions covered w/ steristrips, bruising through brachium to elbow PT-OP-K Range of Motion Start: 07/04/23 17:57 Freq: Status: Active Protocol: Document 07/09/23 12:13 LR (Rec: 07/09/23 16:03 [facility] [id number]) Shoulder Goniometric Range of Motion Shoulder Right Passive Flexion 106 External Rotation at 45 degrees 22 Abduction Internal Rotation 22 Comments in scap plane /rotations Left Active Flexion 160 Extension 70 Abduction 180 External Rotation at 90 degrees 86 Abduction Internal Rotation 44 Internal Rotation Behind Back (text) T6 Comments IR at 90 deg PT-OP-Q Treatments Start: 07/04/23 17:57 Freq: Status: Active Protocol: Document 07/23/23 11:18 BS (Rec: 07/23/23 12:12 BS [id number]) Manual Therapy Treatment Joint Mobilizations R GH jt Joint small range Direction post Grade I Body Position Hooklying Manual Techniques PROM Type flex, scaption, ER/IR in scapular plane Reps/Duration 35 min Self-Care/Home Management Treatment Education Other Education 10 min: education provided on fit of sling and proper donning/doffing. PT helped adjust new strap and get proper positioning. Use of mirror for vidual feedback to pt with fit of sling. PT-OP-R Modalities Start: 07/04/23 17:57 Freq: Status: Active Protocol: Document 07/18/23 13:08 SP (Rec: 07/18/23 13:53 SP [id number]) Hot Pack/Cold Pack Treatment CP Location R shld Treatment Duration (minutes) 5 Patient Tolerance Good Comments at times uses at home PT-OP-T Assessment and Plan Start: 07/04/23 17:57 Freq: Status: Active Protocol: Document 07/23/23 11:18 BS (Rec: 07/23/23 12:12 BS [id number]) Physical Therapy Assessment Goals quick dash Impairment 54.54 Short Term Goal (STG) Pt will improve quick dash score to no greater than 35 to show improved functional ability. STG Duration 08/22/23 Custodial Goal (LTG) Pt will improve quick dash score to no greater than 20 to show improved functional ability. LTG Duration 10/01/23 strength Short Term Goal (STG) Pt will be indep w/HEP for strength and ROM per PT based on protocol. STG Duration 09/01 Custodial Goal (LTG) Pt will score at least 4-/5 on all MMT on RUE to show good start to progression of RUE strength to allow return to household activities w/o inc pain. LTG Duration 10/01/23 ROM Short Term Goal (STG) Pt will have full PROM with no more than 2/10 pain STG Duration 09/01 Manager Of Environmental Services Goal (LTG) Pt will have full AROM in order to allow pt to return overhead activities and dressing w/o inc pain. LTG Duration 10/01/23 Assessment Summary Assessment Pt responded well to manual today and had much more success with relaxing and allowing PROM once education was provided about which movements he was being taken through and what the goals of his protocol was. Pt still rpesents with intermittent muscel guarding but is able to overall relax more with each session. Ended session with education of proper fit of sling as pt came in with elbow not all the way suuported and hand hanging out. PT helped adjust straps and used mirror for visual feedback and pt reported feeling more supported. Physical Therapy Plan Frequency and Duration Frequency of Treatment 1-2x/wk Duration of treatment (weeks) 12 Plan of Care Start Date 07/09/23 Plan of Care End Date 10/01/23 Therapeutic Interventions Therapeutic Interventions Gait Training,Home Exercise Program,Joint Mobilizations, Manual Therapy,Neuromuscular Re-education,Patient/Caregiver Education,Self-Care/Home Management,Soft Tissue Mobilization,Taping, Therapeutic Activities, Therapeutic Exercises Modalities Cold Pack/Ice Massage,Electric Stimulation,Hot Packs, Infrared Therapy,Ultrasound Next Visit Focus/Plan Next Note Type Treatment Note Next Visit Plan Recheck scapular ROM manual and ed self performance, performance of pendulum and added small range elbow flexion with small range IR/ER use dowel (keyboard motions) POC:PROM, reassess pendulums, gentle joint mobs, STM to UT
--- NOTE | 2023-07-25 12:24 | PT.OTN ---
Current Diagnoses Unspecified rotator cuff tear or rupture of right shoulder, not specified as traumatic (07/25/23) Strain of other muscles, fascia and tendons at shoulder and upper arm level, right arm, subsequent encounter (07/25/23) Physical Therapy Treatment Note PT-OP-A Visit Information Start: 07/04/23 17:57 Freq: Status: Active Protocol: Document 07/25/23 11:18 SW (Rec: 07/25/23 12:24 SW [id number]) Out-Patient Physical Therapy Visit Information Visit Information Visit Type Treatment Note Visit Note 02/10 Visit Start Time 11:19 Visit Stop Time 12:00 Total Visit Minutes 41 Visit Number 6 Number of TACKER ELASTIC BAND Visits 1 PT-OP-B Current Condition Start: 07/04/23 17:57 Freq: Status: Active Protocol: Document 07/09/23 12:13 [facility] (Rec: 07/09/23 16:03 [facility] [id number]) Current Condition History of Current Condition History of Current Condition Pt was lifting an aluminum boat out in front and heard/ felt it on Apr 03. He had full thickness RCT and had it repaired and subacromial decompression. He had surgery 07/04/23. He reports he took a shower yesterday adn almost paased out. He can't sleep on his back so have been sleeping on his side. Meds have helped w/pain. He has been phasing out of it oxy/tylenol. He takes them as needed. He sees Dr. Maurer on 07/14. He can dress himself etc. He is R handed. 2004 L RCR Treatment Goals Patient/Caregiver Goals Goals: fishing, hunting (bow, pistol, rifle), target shooting, fixing things, lifting (dumbells and bands), use arm again (mobility biggest concern) PT-OP-C Subjective Start: 07/04/23 17:57 Freq: Status: Active Protocol: Document 07/25/23 11:18 SW (Rec: 07/25/23 12:24 SW [id number]) OP-PT Subjective Patient Comments Patient Comments Pt reports difficulty getting full night sleep. Tired of wearing sling. PT-OP-F Manual Assessment Start: 07/04/23 17:57 Freq: Status: Active Protocol: Document 07/09/23 12:13 [facility] (Rec: 07/09/23 16:03 [facility] [id number]) Manual Assessments Other Manual Assessments Other Manual Assessments incisions covered w/ steristrips, bruising through brachium to elbow PT-OP-K Range of Motion Start: 07/04/23 17:57 Freq: Status: Active Protocol: Document 07/09/23 12:13 [facility] (Rec: 07/09/23 16:03 [facility] [id number]) Shoulder Goniometric Range of Motion Shoulder Right Passive Flexion 106 External Rotation at 45 degrees 22 Abduction Internal Rotation 22 Comments in scap plane /rotations Left Active Flexion 160 Extension 70 Abduction 180 External Rotation at 90 degrees 86 Abduction Internal Rotation 44 Internal Rotation Behind Back (text) T6 Comments IR at 90 deg PT-OP-Q Treatments Start: 07/04/23 17:57 Freq: Status: Active Protocol: Document 07/25/23 11:18 SW (Rec: 07/25/23 12:24 SW [id number]) Therapeutic Exercises Sitting Exercises elbow Sitting Exercise Name flex/ext & pronation/ supination Side right Reps/Minutes x10 Standing Exercises Pendulums Standing Exercise Name Shoulder pendulums A<>P & lat- seated best Side right Resistance LUE help RUE Reps/Minutes 5 min Comments good feedback and fluid flow. Manual Therapy Treatment Joint Mobilizations R GH jt Joint small range Direction post Grade I Body Position Hooklying Manual Techniques PROM Type flex, scaption, ER/IR in scapular plane Reps/Duration 30 min PT-OP-R Modalities Start: 07/04/23 17:57 Freq: Status: Active Protocol: Document 07/18/23 13:08 SP (Rec: 07/18/23 13:53 SP [id number]) Hot Pack/Cold Pack Treatment CP Location R shld Treatment Duration (minutes) 5 Patient Tolerance Good Comments at times uses at home PT-OP-T Assessment and Plan Start: 07/04/23 17:57 Freq: Status: Active Protocol: Document 07/25/23 11:18 SW (Rec: 07/25/23 12:24 SW [id number]) Physical Therapy Assessment Goals quick dash Impairment 54.54 Short Term Goal (STG) Pt will improve quick dash score to no greater than 35 to show improved functional ability. STG Duration 08/22/23 Optical Instrument Assembly Supervisor Goal (LTG) Pt will improve quick dash score to no greater than 20 to show improved functional ability. LTG Duration 10/01/23 strength Short Term Goal (STG) Pt will be indep w/HEP for strength and ROM per PT based on protocol. STG Duration 09/01 Optical Instrument Assembly Supervisor Goal (LTG) Pt will score at least 4-/5 on all MMT on RUE to show good start to progression of RUE strength to allow return to household activities w/o inc pain. LTG Duration 10/01/23 ROM Short Term Goal (STG) Pt will have full PROM with no more than 2/10 pain STG Duration 09/01 [facility] Goal (LTG) Pt will have full AROM in order to allow pt to return overhead activities and dressing w/o inc pain. LTG Duration 10/01/23 Assessment Summary Assessment Manual therapy focus this session, per pt protocol. Cues for mm relaxtion and breathing to promote relaxation. Improved with less guarding by end of session, pt able to quickly recognize and self correct. Plan to continue per pt protocol. Physical Therapy Plan Frequency and Duration Frequency of Treatment 1-2x/wk Duration of treatment (weeks) 12 Plan of Care Start Date 07/09/23 Plan of Care End Date 10/01/23 Therapeutic Interventions Therapeutic Interventions Gait Training,Home Exercise Program,Joint Mobilizations, Manual Therapy,Neuromuscular Re-education,Patient/Caregiver Education,Self-Care/Home Management,Soft Tissue Mobilization,Taping, Therapeutic Activities, Therapeutic Exercises Modalities Cold Pack/Ice Massage,Electric Stimulation,Hot Packs, Infrared Therapy,Ultrasound Next Visit Focus/Plan Next Note Type Treatment Note Next Visit Plan Recheck scapular ROM manual and ed self performance, performance of pendulum and added small range elbow flexion with small range IR/ER use dowel (keyboard motions) POC:PROM, reassess pendulums, gentle joint mobs, STM to UT
--- NOTE | 2023-07-30 18:28 | PT.OTN ---
Addendum entered and electronically signed by Darcy Sorensen PT 07/31/23 08:16: PT direct supervision and direction to PT student. Original Note: Current Diagnoses Unspecified rotator cuff tear or rupture of right shoulder, not specified as traumatic (07/30/23) Strain of other muscles, fascia and tendons at shoulder and upper arm level, right arm, subsequent encounter (07/30/23) Physical Therapy Treatment Note PT-OP-A Visit Information Start: 07/04/23 17:57 Freq: Status: Active Protocol: Document 07/30/23 12:06 BS (Rec: 07/30/23 12:13 BS [id number]) Out-Patient Physical Therapy Visit Information Visit Information Visit Type Treatment Note Visit Note 03/12 Visit Start Time 11:21 Visit Stop Time 12:02 Total Visit Minutes 41 Visit Number 7 Number of SOLE PAINTER Visits 0 PT-OP-B Current Condition Start: 07/04/23 17:57 Freq: Status: Active Protocol: Document 07/09/23 12:13 [facility] (Rec: 07/09/23 16:03 [facility] [id number]) Current Condition History of Current Condition History of Current Condition Pt was lifting an aluminum boat out in front and heard/ felt it on Apr 03. He had full thickness RCT and had it repaired and subacromial decompression. He had surgery 07/04/23. He reports he took a shower yesterday adn almost paased out. He can't sleep on his back so have been sleeping on his side. Meds have helped w/pain. He has been phasing out of it oxy/tylenol. He takes them as needed. He sees Dr. Maurer on 07/14. He can dress himself etc. He is R handed. 2004 L RCR Treatment Goals Patient/Caregiver Goals Goals: fishing, hunting (bow, pistol, rifle), target shooting, fixing things, lifting (dumbells and bands), use arm again (mobility biggest concern) PT-OP-C Subjective Start: 07/04/23 17:57 Freq: Status: Active Protocol: Document 07/30/23 12:06 BS (Rec: 07/30/23 12:13 BS [id number]) OP-PT Subjective Patient Comments Patient Comments Pt reported no big changes over weekend. Still having some nights he isn't sleeping well but is able to tolerate being on his back more with pillow propped under shoulder. PT-OP-F Manual Assessment Start: 07/04/23 17:57 Freq: Status: Active Protocol: Document 07/09/23 12:13 [facility] (Rec: 07/09/23 16:03 [facility] [id number]) Manual Assessments Other Manual Assessments Other Manual Assessments incisions covered w/ steristrips, bruising through brachium to elbow PT-OP-K Range of Motion Start: 07/04/23 17:57 Freq: Status: Active Protocol: Document 07/09/23 12:13 [facility] (Rec: 07/09/23 16:03 [facility] [id number]) Shoulder Goniometric Range of Motion Shoulder Right Passive Flexion 106 External Rotation at 45 degrees 22 Abduction Internal Rotation 22 Comments in scap plane /rotations Left Active Flexion 160 Extension 70 Abduction 180 External Rotation at 90 degrees 86 Abduction Internal Rotation 44 Internal Rotation Behind Back (text) T6 Comments IR at 90 deg PT-OP-Q Treatments Start: 07/04/23 17:57 Freq: Status: Active Protocol: Document 07/30/23 12:06 BS (Rec: 07/30/23 12:13 BS [id number]) Manual Therapy Treatment Joint Mobilizations R GH jt Joint small range Direction post Grade I Body Position Hooklying Manual Techniques PROM Type flex, scaption, ER/IR in scapular plane Reps/Duration 35 min PT-OP-R Modalities Start: 07/04/23 17:57 Freq: Status: Active Protocol: Document 07/18/23 13:08 SP (Rec: 07/18/23 13:53 SP [id number]) Hot Pack/Cold Pack Treatment CP Location R shld Treatment Duration (minutes) 5 Patient Tolerance Good Comments at times uses at home PT-OP-T Assessment and Plan Start: 07/04/23 17:57 Freq: Status: Active Protocol: Document 07/30/23 12:06 BS (Rec: 07/30/23 12:13 BS [id number]) Physical Therapy Assessment Goals quick dash Impairment 54.54 Short Term Goal (STG) Pt will improve quick dash score to no greater than 35 to show improved functional ability. STG Duration 08/22/23 Lightning Rod Installer Goal (LTG) Pt will improve quick dash score to no greater than 20 to show improved functional ability. LTG Duration 10/01/23 strength Short Term Goal (STG) Pt will be indep w/HEP for strength and ROM per PT based on protocol. STG Duration 09/01 Lightning Rod Installer Goal (LTG) Pt will score at least 4-/5 on all MMT on RUE to show good start to progression of RUE strength to allow return to household activities w/o inc pain. LTG Duration 10/01/23 ROM Short Term Goal (STG) Pt will have full PROM with no more than 2/10 pain STG Duration 09/01 Lightning Rod Installer Goal (LTG) Pt will have full AROM in order to allow pt to return overhead activities and dressing w/o inc pain. LTG Duration 10/01/23 Assessment Summary Assessment Session focused on PROM manual today per pt protocol. Pt able to get IR to trunk and flexion to at least 90. Pt still presents with muscle guarding during PROM with mod cueing needed for relaxation reminders. ER tends to be most limited in scapular plane but improves with relaxation techniques. Physical Therapy Plan Frequency and Duration Frequency of Treatment 1-2x/wk Duration of treatment (weeks) 12 Plan of Care Start Date 07/09/23 Plan of Care End Date 10/01/23 Next Visit Focus/Plan Next Note Type Treatment Note Next Visit Plan 4 wk rodo- Recheck PROM manual and ed self performance POC:PROM, reassess pendulums, gentle joint mobs, STM to UT
--- NOTE | 2023-08-02 11:18 | PT.OTN ---
Current Diagnoses Unspecified rotator cuff tear or rupture of right shoulder, not specified as traumatic (08/02/23) Strain of other muscles, fascia and tendons at shoulder and upper arm level, right arm, subsequent encounter (08/02/23) Physical Therapy Treatment Note PT-OP-A Visit Information Start: 07/04/23 17:57 Freq: Status: Active Protocol: Document 08/02/23 10:37 SP (Rec: 08/02/23 12:03 SP [id number]) Out-Patient Physical Therapy Visit Information Visit Information Visit Type Treatment Note Visit Note 04/12 Visit Start Time 10:37 Visit Stop Time 11:18 Total Visit Minutes 41 Visit Number 8 Number of WARM IN WORKER Visits 1 Precautions Precautions 07/16/23: s/p R full thickness RTC repair with subacromial decompression. PT-OP-B Current Condition Start: 07/04/23 17:57 Freq: Status: Active Protocol: Document 07/09/23 12:13 [facility] (Rec: 07/09/23 16:03 [facility] [id number]) Current Condition History of Current Condition History of Current Condition Pt was lifting an aluminum boat out in front and heard/ felt it on Apr 03. He had full thickness RCT and had it repaired and subacromial decompression. He had surgery 07/04/23. He reports he took a shower yesterday adn almost paased out. He can't sleep on his back so have been sleeping on his side. Meds have helped w/pain. He has been phasing out of it oxy/tylenol. He takes them as needed. He sees Dr. Maurer on 07/14. He can dress himself etc. He is R handed. 2004 L RCR Treatment Goals Patient/Caregiver Goals Goals: fishing, hunting (bow, pistol, rifle), target shooting, fixing things, lifting (dumbells and bands), use arm again (mobility biggest concern) PT-OP-C Subjective Start: 07/04/23 17:57 Freq: Status: Active Protocol: Document 08/02/23 10:37 SP (Rec: 08/02/23 12:03 SP [id number]) OP-PT Subjective Patient Comments Patient Comments Pt is 4 weeks 1 day s/p R RTC repaire. He reports sleeping better approx 6 hrs, not needing pillow behind shoulder as much for comfort with sling donned. He got up did little bit, apply modality then slept another hour. He report hasn't been doing HEP much, busy life. Pt reports has ortho follow up 08/13 and wondered if will leave PT appt prior with a progress note to bring showing progression. PT-OP-F Manual Assessment Start: 07/04/23 17:57 Freq: Status: Active Protocol: Document 07/09/23 12:13 [facility] (Rec: 07/09/23 16:03 [facility] [id number]) Manual Assessments Other Manual Assessments Other Manual Assessments incisions covered w/ steristrips, bruising through brachium to elbow PT-OP-K Range of Motion Start: 07/04/23 17:57 Freq: Status: Active Protocol: Document 07/09/23 12:13 [facility] (Rec: 07/09/23 16:03 [facility] [id number]) Shoulder Goniometric Range of Motion Shoulder Right Passive Flexion 106 External Rotation at 45 degrees 22 Abduction Internal Rotation 22 Comments in scap plane /rotations Left Active Flexion 160 Extension 70 Abduction 180 External Rotation at 90 degrees 86 Abduction Internal Rotation 44 Internal Rotation Behind Back (text) T6 Comments IR at 90 deg PT-OP-Q Treatments Start: 07/04/23 17:57 Freq: Status: Active Protocol: Document 08/02/23 10:37 SP (Rec: 08/02/23 12:03 SP [id number]) Therapeutic Exercises Sidelying Exercises scapular ROM Sidelying Exercise Name manual and AAROM tactile feedback Side right Resistance AAROM>AROM- small range Equipment Used sup/inf/pro/retraction Reps/Minutes 3 min Comments improved no pain and good form Sitting Exercises R shld IR/ ER PROM Sitting Exercise Name small range mccullough board allowance Side right Resistance LUE Equipment Used sit on stool, B hands on plinth moving finger slight GH IR/ER sling pos ran Reps/Minutes 10 reps Comments cued abductor wedge sling range- keyboard- painfree good form elbow Sitting Exercise Name flex/ext & pronation/ supination Side right Resistance AROM Equipment Used supine & standing Reps/Minutes x10 reps each position Comments cued elongated posture, scap retraction then slow fluid AROM- pnfree report scap Sitting Exercise Name 1. retraction 2. rolls Side bilateral Reps/Minutes 1. 5 reps 10 SH 2. 10 reps Comments improved scapular ROM post manual and better understanding, less guarding Standing Exercises Pendulums Standing Exercise Name Shoulder pendulum: F/B/Lateral /CW/CCW Side right Resistance LUE help RUE Equipment Used sit and standing 08/02 Reps/Minutes 5 min Comments good feedback and GH fluid flow today, best form seen Manual Therapy Treatment Soft Tissue Mobilization R scap/neck Body Location R UT (light), LS, rhomboid, LT , rhomboid, pec Mobilization Type Strumming Intensity/Depth Moderate Body Position Sidelying Comments d Joint Mobilizations R GH jt Joint small range Direction A<>P, sup/inferior Grade I Body Position Hooklying Comments feels good to move painfree, less guarding with mobility PROM R scapulothoracic Joint R Direction sup/inf/pro/retract Grade II Body Position L SL Comments manual, AAROM /c tactile cues with ed scap pro/retractions. Manual Techniques PROM Type flex, scaption, ER/IR in scapular plane Reps/Duration 35 min Self-Care/Home Management Treatment Education Patient Education Home Exercise Program,Joint Protection,Pain Management, Posture,Safety Other Education Extra time spent on education anatomy of R GH jt and importance of scapular ROM, pendulums for baseline PROM mobility to prepare functional mobility later progression to . Better understanding HEP given to perform, use CP/MHP carryover assist decrease achiness experiencing due to inactivity. Small range gait across room and back with ed pendulum during gait with better understanding carryover what pendulums can do for decrease guarding later. Education not instructing to walk around without sling until Doc clears him. PT-OP-R Modalities Start: 07/04/23 17:57 Freq: Status: Active Protocol: Document 07/18/23 13:08 SP (Rec: 07/18/23 13:53 SP [id number]) Hot Pack/Cold Pack Treatment CP Location R shld Treatment Duration (minutes) 5 Patient Tolerance Good Comments at times uses at home PT-OP-T Assessment and Plan Start: 07/04/23 17:57 Freq: Status: Active Protocol: Document 08/02/23 10:37 SP (Rec: 08/02/23 12:03 SP [id number]) Physical Therapy Assessment Goals quick dash Impairment 54.54 Short Term Goal (STG) Pt will improve quick dash score to no greater than 35 to show improved functional ability. STG Duration 08/22/23 Care Home Goal (LTG) Pt will improve quick dash score to no greater than 20 to show improved functional ability. LTG Duration 10/01/23 strength Short Term Goal (STG) Pt will be indep w/HEP for strength and ROM per PT based on protocol. STG Duration 09/01 Care Home Goal (LTG) Pt will score at least 4-/5 on all MMT on RUE to show good start to progression of RUE strength to allow return to household activities w/o inc pain. LTG Duration 10/01/23 ROM Short Term Goal (STG) Pt will have full PROM with no more than 2/10 pain STG Duration 09/01 Boiler Cleaner Goal (LTG) Pt will have full AROM in order to allow pt to return overhead activities and dressing w/o inc pain. LTG Duration 10/01/23 Assessment Summary Assessment Pt improve understanding importance of HEP: scap mobility, pendulum with improved performance today with reports R shlder feels better/less stiffness and achiness. Extra time of education and instructions of anatomy understanding carryover scapular therex and how supports progression when allowed/cleared. Pt demonstrated less UT guarding and more scapula mobility end tx. Physical Therapy Plan Frequency and Duration Frequency of Treatment 1-2x/wk Duration of treatment (weeks) 12 Plan of Care Start Date 07/09/23 Plan of Care End Date 10/01/23 Therapeutic Interventions Therapeutic Interventions Gait Training,Home Exercise Program,Joint Mobilizations, Manual Therapy,Neuromuscular Re-education,Patient/Caregiver Education,Self-Care/Home Management,Soft Tissue Mobilization,Taping, Therapeutic Activities, Therapeutic Exercises Modalities Cold Pack/Ice Massage,Electric Stimulation,Hot Packs, Infrared Therapy,Ultrasound Next Visit Focus/Plan Next Note Type Treatment Note Next Visit Plan Ortho 08/13. PN due 2 visits. Next visit: Recheck PROM manual measurements and add self performance using opp LUE FF<90 deg, neck stretching, POC:PROM, recheck performing pendulums, gentle joint mobs, STM to UT
--- NOTE | 2023-08-08 17:21 | PT.OTN ---
Current Diagnoses Unspecified rotator cuff tear or rupture of right shoulder, not specified as traumatic (08/08/23) Strain of other muscles, fascia and tendons at shoulder and upper arm level, right arm, subsequent encounter (08/08/23) Physical Therapy Treatment Note PT-OP-A Visit Information Start: 07/04/23 17:57 Freq: Status: Active Protocol: Document 08/08/23 12:57 (Rec: 08/08/23 13:47 [id number]) Out-Patient Physical Therapy Visit Information Visit Information Visit Type Treatment Note Visit Note 05/13 Visit Start Time 13:00 Visit Stop Time 13:41 Total Visit Minutes 41 Visit Number 9 Number of CRADLE PLACER Visits 2 Precautions Precautions 07/16/23: s/p R full thickness RTC repair with subacromial decompression. PT-OP-B Current Condition Start: 07/04/23 17:57 Freq: Status: Active Protocol: Document 07/09/23 12:13 [facility] (Rec: 07/09/23 16:03 [facility] [id number]) Current Condition History of Current Condition History of Current Condition Pt was lifting an aluminum boat out in front and heard/ felt it on Apr 03. He had full thickness RCT and had it repaired and subacromial decompression. He had surgery 07/04/23. He reports he took a shower yesterday adn almost paased out. He can't sleep on his back so have been sleeping on his side. Meds have helped w/pain. He has been phasing out of it oxy/tylenol. He takes them as needed. He sees Dr. Maurer on 07/14. He can dress himself etc. He is R handed. 2004 L RCR Treatment Goals Patient/Caregiver Goals Goals: fishing, hunting (bow, pistol, rifle), target shooting, fixing things, lifting (dumbells and bands), use arm again (mobility biggest concern) PT-OP-C Subjective Start: 07/04/23 17:57 Freq: Status: Active Protocol: Document 08/08/23 12:57 (Rec: 08/08/23 13:47 [id number]) OP-PT Subjective Patient Comments Patient Comments pt reports he rolled over on his R shoulder, woke him up with pain, and has pain on R bicep area, reports sore today . PT-OP-F Manual Assessment Start: 07/04/23 17:57 Freq: Status: Active Protocol: Document 07/09/23 12:13 LR (Rec: 07/09/23 16:03 [facility] [id number]) Manual Assessments Other Manual Assessments Other Manual Assessments incisions covered w/ steristrips, bruising through brachium to elbow PT-OP-K Range of Motion Start: 07/04/23 17:57 Freq: Status: Active Protocol: Document 07/09/23 12:13 [facility] (Rec: 07/09/23 16:03 [facility] [id number]) Shoulder Goniometric Range of Motion Shoulder Right Passive Flexion 106 External Rotation at 45 degrees 22 Abduction Internal Rotation 22 Comments in scap plane /rotations Left Active Flexion 160 Extension 70 Abduction 180 External Rotation at 90 degrees 86 Abduction Internal Rotation 44 Internal Rotation Behind Back (text) T6 Comments IR at 90 deg PT-OP-Q Treatments Start: 07/04/23 17:57 Freq: Status: Active Protocol: Document 08/08/23 12:57 SW (Rec: 08/08/23 13:47 SW [id number]) Manual Therapy Treatment Soft Tissue Mobilization R scap/neck Body Location R UT (light), LS, rhomboid, LT , rhomboid, pec Mobilization Type Strumming Intensity/Depth Moderate Body Position Sidelying Comments d Joint Mobilizations R GH jt Joint small range Direction A<>P, sup/inferior Grade I Body Position Hooklying Comments feels good to move painfree, less guarding with mobility PROM Manual Techniques PROM Type flex, scaption, ER/IR in scapular plane Reps/Duration 39 min PT-OP-R Modalities Start: 07/04/23 17:57 Freq: Status: Active Protocol: Document 07/18/23 13:08 SP (Rec: 07/18/23 13:53 SP [id number]) Hot Pack/Cold Pack Treatment CP Location R shld Treatment Duration (minutes) 5 Patient Tolerance Good Comments at times uses at home PT-OP-T Assessment and Plan Start: 07/04/23 17:57 Freq: Status: Active Protocol: Document 08/08/23 12:57 SW (Rec: 08/08/23 13:47 SW [id number]) Physical Therapy Assessment Goals quick dash Impairment 54.54 Short Term Goal (STG) Pt will improve quick dash score to no greater than 35 to show improved functional ability. STG Duration 08/22/23 Automated Cutting Machine Operator Goal (LTG) Pt will improve quick dash score to no greater than 20 to show improved functional ability. LTG Duration 10/01/23 strength Short Term Goal (STG) Pt will be indep w/HEP for strength and ROM per PT based on protocol. STG Duration 09/01 Automated Cutting Machine Operator Goal (LTG) Pt will score at least 4-/5 on all MMT on RUE to show good start to progression of RUE strength to allow return to household activities w/o inc pain. LTG Duration 10/01/23 ROM Short Term Goal (STG) Pt will have full PROM with no more than 2/10 pain STG Duration 09/01 Automated Cutting Machine Operator Goal (LTG) Pt will have full AROM in order to allow pt to return overhead activities and dressing w/o inc pain. LTG Duration 10/01/23 Assessment Summary Assessment Continued PROM and manual therapy today, per pt protocol post surgical repair. Pt has follow up with ortho on . Pt presented with decreased guarding during PROM this session requiring min cues for mm relaxation. Physical Therapy Plan Frequency and Duration Frequency of Treatment 1-2x/wk Duration of treatment (weeks) 12 Plan of Care Start Date 07/09/23 Plan of Care End Date 10/01/23 Therapeutic Interventions Therapeutic Interventions Gait Training,Home Exercise Program,Joint Mobilizations, Manual Therapy,Neuromuscular Re-education,Patient/Caregiver Education,Self-Care/Home Management,Soft Tissue Mobilization,Taping, Therapeutic Activities, Therapeutic Exercises Modalities Cold Pack/Ice Massage,Electric Stimulation,Hot Packs, Infrared Therapy,Ultrasound Next Visit Focus/Plan Next Note Type Treatment Note Next Visit Plan Ortho 08/13. PN due 2 visits. Next visit: Recheck PROM manual measurements and add self performance using opp LUE FF<90 deg, neck stretching, POC:PROM, recheck performing pendulums, gentle joint mobs, STM to UT
--- NOTE | 2023-08-15 16:56 | PT.OTN ---
Addendum entered and electronically signed by Darcy Sorensen PT 08/16/23 07:42: PT direct supervision and direction to PT student. Original Note: Current Diagnoses Unspecified rotator cuff tear or rupture of right shoulder, not specified as traumatic (08/15/23) Strain of other muscles, fascia and tendons at shoulder and upper arm level, right arm, subsequent encounter (08/15/23) Physical Therapy Treatment Note PT-OP-A Visit Information Start: 07/04/23 17:57 Freq: Status: Active Protocol: Document 08/15/23 10:34 BS (Rec: 08/15/23 11:36 BS [id number]) Out-Patient Physical Therapy Visit Information Visit Information Visit Type Progress Note Visit Note 09/12 Visit Start Time 10:35 Visit Stop Time 11:25 Total Visit Minutes 50 Visit Number 10 Number of CASH RECONCILIATION SPECIALIST Visits 0 PT-OP-B Current Condition Start: 07/04/23 17:57 Freq: Status: Active Protocol: Document 07/09/23 12:13 [facility] (Rec: 07/09/23 16:03 [facility] [id number]) Current Condition History of Current Condition History of Current Condition Pt was lifting an aluminum boat out in front and heard/ felt it on Apr 03. He had full thickness RCT and had it repaired and subacromial decompression. He had surgery 07/04/23. He reports he took a shower yesterday adn almost paased out. He can't sleep on his back so have been sleeping on his side. Meds have helped w/pain. He has been phasing out of it oxy/tylenol. He takes them as needed. He sees Dr. Maurer on 07/14. He can dress himself etc. He is R handed. 2004 L RCR Treatment Goals Patient/Caregiver Goals Goals: fishing, hunting (bow, pistol, rifle), target shooting, fixing things, lifting (dumbells and bands), use arm again (mobility biggest concern) PT-OP-C Subjective Start: 07/04/23 17:57 Freq: Status: Active Protocol: Document 08/15/23 10:34 BS (Rec: 08/15/23 11:36 BS [id number]) OP-PT Subjective Patient Comments Patient Comments Pt got sling off on Sunday and was pretty sore the first day but has been feeling better yesterday and today. PT-OP-F Manual Assessment Start: 07/04/23 17:57 Freq: Status: Active Protocol: Document 07/09/23 12:13 [facility] (Rec: 07/09/23 16:03 [facility] [id number]) Manual Assessments Other Manual Assessments Other Manual Assessments incisions covered w/ steristrips, bruising through brachium to elbow PT-OP-K Range of Motion Start: 07/04/23 17:57 Freq: Status: Active Protocol: Document 08/15/23 10:34 BS (Rec: 08/15/23 11:36 BS [id number]) Shoulder Goniometric Range of Motion Shoulder Right Active Flexion 35 Extension 30 Abduction 39 External Rotation at 0 degrees Abduction 30 Internal Rotation Behind Back (text) mid buttocks Right Passive Flexion 116 External Rotation at 45 degrees 58 Abduction Internal Rotation 39 Comments in scap plane /rotations Left Active Flexion 160 Extension 70 Abduction 180 External Rotation at 90 degrees 86 Abduction Internal Rotation 44 Internal Rotation Behind Back (text) T6 Comments IR at 90 deg PT-OP-Q Treatments Start: 07/04/23 17:57 Freq: Status: Active Protocol: Document 08/15/23 10:34 BS (Rec: 08/15/23 11:36 BS [id number]) Therapeutic Exercises Sitting Exercises AROM Sitting Exercise Name flex, abd, ER, IR, Ext Comments tolerable ROM as able Wen's Sitting Exercise Name flex, scap, abd Side right Reps/Minutes x10 ea Comments cues for control and tolerable range Shld flex Sitting Exercise Name Table slides Side bilateral Reps/Minutes x12 Comments w/ red silk on black mat table Standing Exercises Shld ER Standing Exercise Name AAROM w/ dowel Side right Reps/Minutes x10 Comments cues for tolerable range Shld Abd Standing Exercise Name AAROM w/ dowel Side right Reps/Minutes x10 Comments cues for tolerable range Manual Therapy Treatment Joint Mobilizations R GH jt Joint small range Direction inf, post Grade II Body Position Supine Comments Less guarding noted today w/ mobs PT-OP-R Modalities Start: 07/04/23 17:57 Freq: Status: Active Protocol: Document 08/15/23 10:34 BS (Rec: 08/15/23 11:36 BS [id number]) Hot Pack/Cold Pack Treatment CP Location R shld Patient Position Supine Treatment Duration (minutes) 10 Patient Tolerance Good PT-OP-T Assessment and Plan Start: 07/04/23 17:57 Freq: Status: Active Protocol: Document 08/15/23 10:34 BS (Rec: 08/15/23 11:36 BS [id number]) Physical Therapy Assessment Goals quick dash Impairment 54.54 Short Term Goal (STG) Pt will improve quick dash score to no greater than 35 to show improved functional ability. 08/15- 65.9, pt reported he answered in referernce to RUE only this time compared to eval STG Duration 08/22/23 Group Home Goal (LTG) Pt will improve quick dash score to no greater than 20 to show improved functional ability. LTG Duration 10/01/23 strength Short Term Goal (STG) Pt will be indep w/HEP for strength and ROM per PT based on protocol. 08/15- progressing, ROM HEP added today STG Duration 09/01 Service Liaison Representative Goal (LTG) Pt will score at least 4-/5 on all MMT on RUE to show good start to progression of RUE strength to allow return to household activities w/o inc pain. LTG Duration 10/01/23 ROM Short Term Goal (STG) Pt will have full PROM with no more than 2/10 pain 08/15- progressing STG Duration 09/01 Group Home Goal (LTG) Pt will have full AROM in order to allow pt to return overhead activities and dressing w/o inc pain. LTG Duration 10/01/23 Assessment Summary Assessment Pt seen today for PT progress note. Pt had imroved PROM in all motions and is now cleared for AROM which pt is significantly limited in, as expected following removal of sling. Pt tolerated progression of AAROM HEP today , requiring Min cueing for tolerable range as pt has tendency to want to push more than necessary through ROM. Less muscle guarding noted w/ manual today. Pt will benefit from continued skilled PT in order to address ROM and strength deficits in order to work towards return to ADLs and daily acitivities w/o limitation d/t R shld. Physical Therapy Plan Frequency and Duration Frequency of Treatment 1-2x/wk Duration of treatment (weeks) 12 Plan of Care Start Date 07/09/23 Plan of Care End Date 10/01/23 Next Visit Focus/Plan Next Note Type Treatment Note Next Visit Plan Reassess added AAROM HEP added last visit: abd, & ER w/ gayle, table sldies, pulleys. Progress HEP as appropriate per pt protocol. Manual: PROM, GH & ST mobs
--- NOTE | 2023-08-22 11:25 | PT.OTN ---
Current Diagnoses Unspecified rotator cuff tear or rupture of right shoulder, not specified as traumatic (08/22/23) Strain of other muscles, fascia and tendons at shoulder and upper arm level, right arm, subsequent encounter (08/22/23) Physical Therapy Treatment Note PT-OP-A Visit Information Start: 07/04/23 17:57 Freq: Status: Active Protocol: Document 08/22/23 10:37 [facility] (Rec: 08/22/23 11:24 [facility] [id number]) Out-Patient Physical Therapy Visit Information Visit Information Visit Type Treatment Note Visit Note 10/13 Visit Start Time 10:35 Visit Stop Time 11:25 Total Visit Minutes 50 Visit Number 11 Number of POLICE MAGISTRATE Visits 0 PT-OP-B Current Condition Start: 07/04/23 17:57 Freq: Status: Active Protocol: Document 07/09/23 12:13 [facility] (Rec: 07/09/23 16:03 [facility] [id number]) Current Condition History of Current Condition History of Current Condition Pt was lifting an aluminum boat out in front and heard/ felt it on Apr 03. He had full thickness RCT and had it repaired and subacromial decompression. He had surgery 07/04/23. He reports he took a shower yesterday adn almost paased out. He can't sleep on his back so have been sleeping on his side. Meds have helped w/pain. He has been phasing out of it oxy/tylenol. He takes them as needed. He sees Dr. Maurer on 07/14. He can dress himself etc. He is R handed. 2004 L RCR Treatment Goals Patient/Caregiver Goals Goals: fishing, hunting (bow, pistol, rifle), target shooting, fixing things, lifting (dumbells and bands), use arm again (mobility biggest concern) PT-OP-C Subjective Start: 07/04/23 17:57 Freq: Status: Active Protocol: Document 08/22/23 10:37 [facility] (Rec: 08/22/23 11:24 [facility] [id number]) OP-PT Subjective Patient Comments Patient Comments Pt reports he has only been doing exercises sometimes. PT-OP-F Manual Assessment Start: 07/04/23 17:57 Freq: Status: Active Protocol: Document 07/09/23 12:13 [facility] (Rec: 07/09/23 16:03 [facility] [id number]) Manual Assessments Other Manual Assessments Other Manual Assessments incisions covered w/ steristrips, bruising through brachium to elbow PT-OP-K Range of Motion Start: 07/04/23 17:57 Freq: Status: Active Protocol: Document 08/15/23 10:34 BS (Rec: 08/15/23 11:36 BS [id number]) Shoulder Goniometric Range of Motion Shoulder Right Active Flexion 35 Extension 30 Abduction 39 External Rotation at 0 degrees Abduction 30 Internal Rotation Behind Back (text) mid buttocks Right Passive Flexion 116 External Rotation at 45 degrees 58 Abduction Internal Rotation 39 Comments in scap plane /rotations Left Active Flexion 160 Extension 70 Abduction 180 External Rotation at 90 degrees 86 Abduction Internal Rotation 44 Internal Rotation Behind Back (text) T6 Comments IR at 90 deg PT-OP-Q Treatments Start: 07/04/23 17:57 Freq: Status: Active Protocol: Document 08/22/23 10:37 [facility] (Rec: 08/22/23 11:24 [facility] [id number]) Therapeutic Exercises Supine Exercises SHoulder flex Supine Exercise Name AAROm w/bar Side right Reps/Minutes 10 Sitting Exercises Wen's Sitting Exercise Name flex, scap, abd, IR Side right Reps/Minutes x12 ea Comments cues for control and tolerable range Shld flex Sitting Exercise Name Table slides: flex and abd Side bilateral Reps/Minutes x8 ea Comments w/towel on table Standing Exercises walk aways Standing Exercise Name flex & abd Side bilateral Reps/Minutes 10 sec x3 shoulder ext Standing Exercise Name AAROM w/dowel Side right Reps/Minutes x10 Shld ER Standing Exercise Name AAROM w/ dowel at side Side right Reps/Minutes x10 Comments cues for tolerable range Shld Abd Standing Exercise Name AAROM w/ dowel Side right Reps/Minutes x10 Comments cues for tolerable range Manual Therapy Treatment Soft Tissue Mobilization R scap/neck Body Location R lats, teres major/minor Mobilization Type Rolling,Sustained Pressure Intensity/Depth Moderate Comments w/gentle overhead flex Joint Mobilizations R GH jt Direction distraction, inf, post Grade III Body Position Supine PT-OP-R Modalities Start: 07/04/23 17:57 Freq: Status: Active Protocol: Document 08/22/23 10:37 [facility] (Rec: 08/22/23 11:24 [facility] [id number]) Hot Pack/Cold Pack Treatment CP Location R shld Patient Position Supine Treatment Duration (minutes) 10 Patient Tolerance Good PT-OP-T Assessment and Plan Start: 07/04/23 17:57 Freq: Status: Active Protocol: Document 08/22/23 10:37 [facility] (Rec: 08/22/23 11:24 [facility] [id number]) Physical Therapy Assessment Goals quick dash Impairment 54.54 Short Term Goal (STG) Pt will improve quick dash score to no greater than 35 to show improved functional ability. 08/15- 65.9, pt reported he answered in referernce to RUE only this time compared to eval STG Duration 08/22/23 Surg Rn Goal (LTG) Pt will improve quick dash score to no greater than 20 to show improved functional ability. LTG Duration 10/01/23 strength Short Term Goal (STG) Pt will be indep w/HEP for strength and ROM per PT based on protocol. 08/15- progressing, ROM HEP added today STG Duration 09/01 Senior Care Goal (LTG) Pt will score at least 4-/5 on all MMT on RUE to show good start to progression of RUE strength to allow return to household activities w/o inc pain. LTG Duration 10/01/23 ROM Short Term Goal (STG) Pt will have full PROM with no more than 2/10 pain 08/15- progressing STG Duration 09/01 Surg Rn Goal (LTG) Pt will have full AROM in order to allow pt to return overhead activities and dressing w/o inc pain. LTG Duration 10/01/23 Assessment Summary Assessment pt did well with exercises w/ cues for comfortable range and posture. edu today on importance of exercise compliance. Pt improving ROM but still limited in all planes. Physical Therapy Plan Frequency and Duration Frequency of Treatment 1-2x/wk Duration of treatment (weeks) 12 Plan of Care Start Date 07/09/23 Plan of Care End Date 10/01/23 Next Visit Focus/Plan Next Note Type Treatment Note Next Visit Plan cont to advance ELDON, manual to improve PROM to full
--- NOTE | 2023-08-29 10:34 | PT.OTN ---
Current Diagnoses Unspecified rotator cuff tear or rupture of right shoulder, not specified as traumatic (08/29/23) Strain of other muscles, fascia and tendons at shoulder and upper arm level, right arm, subsequent encounter (08/29/23) Physical Therapy Treatment Note PT-OP-A Visit Information Start: 07/04/23 17:57 Freq: Status: Active Protocol: Document 08/29/23 09:51 [facility] (Rec: 08/29/23 10:33 [facility] [id number]) Out-Patient Physical Therapy Visit Information Visit Information Visit Type Treatment Note Visit Note 11/10 Visit Start Time 09:51 Visit Stop Time 10:30 Total Visit Minutes 39 Visit Number 12 Number of IGNITION SPECIALIST Visits 0 PT-OP-B Current Condition Start: 07/04/23 17:57 Freq: Status: Active Protocol: Document 07/09/23 12:13 [facility] (Rec: 07/09/23 16:03 [facility] [id number]) Current Condition History of Current Condition History of Current Condition Pt was lifting an aluminum boat out in front and heard/ felt it on Apr 03. He had full thickness RCT and had it repaired and subacromial decompression. He had surgery 07/04/23. He reports he took a shower yesterday adn almost paased out. He can't sleep on his back so have been sleeping on his side. Meds have helped w/pain. He has been phasing out of it oxy/tylenol. He takes them as needed. He sees Dr. Maurer on 07/14. He can dress himself etc. He is R handed. 2004 L RCR Treatment Goals Patient/Caregiver Goals Goals: fishing, hunting (bow, pistol, rifle), target shooting, fixing things, lifting (dumbells and bands), use arm again (mobility biggest concern) PT-OP-C Subjective Start: 07/04/23 17:57 Freq: Status: Active Protocol: Document 08/29/23 09:51 [facility] (Rec: 08/29/23 10:33 [facility] [id number]) OP-PT Subjective Patient Comments Patient Comments Pt reports shoulder is sore all the time. He doesn't feel like icing helps. Doing exercises 1x/day PT-OP-F Manual Assessment Start: 07/04/23 17:57 Freq: Status: Active Protocol: Document 07/09/23 12:13 [facility] (Rec: 07/09/23 16:03 [facility] [id number]) Manual Assessments Other Manual Assessments Other Manual Assessments incisions covered w/ steristrips, bruising through brachium to elbow PT-OP-K Range of Motion Start: 07/04/23 17:57 Freq: Status: Active Protocol: Document 08/15/23 10:34 BS (Rec: 08/15/23 11:36 BS [id number]) Shoulder Goniometric Range of Motion Shoulder Right Active Flexion 35 Extension 30 Abduction 39 External Rotation at 0 degrees Abduction 30 Internal Rotation Behind Back (text) mid buttocks Right Passive Flexion 116 External Rotation at 45 degrees 58 Abduction Internal Rotation 39 Comments in scap plane /rotations Left Active Flexion 160 Extension 70 Abduction 180 External Rotation at 90 degrees 86 Abduction Internal Rotation 44 Internal Rotation Behind Back (text) T6 Comments IR at 90 deg PT-OP-Q Treatments Start: 07/04/23 17:57 Freq: Status: Active Protocol: Document 08/29/23 09:51 [facility] (Rec: 08/29/23 10:33 [facility] [id number]) Therapeutic Exercises Supine Exercises SHoulder flex Supine Exercise Name AAROm w/bar Side right Reps/Minutes 10 Sitting Exercises Wen's Sitting Exercise Name flex, scap, abd, IR Side right Reps/Minutes x12 ea Comments cues for control and tolerable range Standing Exercises flex Standing Exercise Name AAROM w/hands together in front Side right Reps/Minutes 10 Comments cues to not shrug; start w/ elbows bent IR Standing Exercise Name 1. AAROM w/towel 2. w/bar Side left Reps/Minutes 10 ea walk aways Reps/Minutes 20 sec shoulder ext Standing Exercise Name 1.AAROM w/dowel 2. AROM Side right Reps/Minutes x10 ea Shld ER Standing Exercise Name 1.AAROM w/ dowel at side 2. AROM Side right Reps/Minutes x10 ea Comments cues for tolerable range Shld Abd Standing Exercise Name AAROM w/ dowel Side right Reps/Minutes x10 Comments cues for tolerable range Manual Therapy Treatment Soft Tissue Mobilization R scap/neck Body Location RUT, LS Mobilization Type Rolling,Sustained Pressure Intensity/Depth Moderate Comments w/scap motion Joint Mobilizations SC Joint R inf FM AC Joint R Direction ant clavicle FM R GH jt Comments R distraction R scapulothoracic Joint R Direction sup/inf/pro/retract Grade II Body Position L SL Comments manual, AAROM /c tactile cues with ed scap pro/retractions. PT-OP-R Modalities Start: 07/04/23 17:57 Freq: Status: Active Protocol: Document 08/22/23 10:37 [facility] (Rec: 08/22/23 11:24 [facility] [id number]) Hot Pack/Cold Pack Treatment CP Location R shld Patient Position Supine Treatment Duration (minutes) 10 Patient Tolerance Good PT-OP-T Assessment and Plan Start: 07/04/23 17:57 Freq: Status: Active Protocol: Document 08/29/23 09:51 [facility] (Rec: 08/29/23 10:33 [facility] [id number]) Physical Therapy Assessment Goals quick dash Impairment 54.54 Short Term Goal (STG) Pt will improve quick dash score to no greater than 35 to show improved functional ability. 08/15- 65.9, pt reported he answered in referernce to RUE only this time compared to eval STG Duration 08/22/23 Half-Way Goal (LTG) Pt will improve quick dash score to no greater than 20 to show improved functional ability. LTG Duration 10/01/23 strength Short Term Goal (STG) Pt will be indep w/HEP for strength and ROM per PT based on protocol. 08/15- progressing, ROM HEP added today STG Duration 09/01 Detective Homicide Squad Goal (LTG) Pt will score at least 4-/5 on all MMT on RUE to show good start to progression of RUE strength to allow return to household activities w/o inc pain. LTG Duration 10/01/23 ROM Short Term Goal (STG) Pt will have full PROM with no more than 2/10 pain 08/15- progressing STG Duration 09/01 Detective Homicide [employer] Goal (LTG) Pt will have full AROM in order to allow pt to return overhead activities and dressing w/o inc pain. LTG Duration 10/01/23 Assessment Summary Assessment Pt requirs cues w/overhead motion to avoid scap elevation . he cont to improve w/AAROM but is limited w/AROM. He does improve after AAROm though. Improved sacp motion after manual. Physical Therapy Plan Frequency and Duration Frequency of Treatment 1-2x/wk Duration of treatment (weeks) 12 Plan of Care Start Date 07/09/23 Plan of Care End Date 10/01/23 Next Visit Focus/Plan Next Note Type Treatment Note Next Visit Plan cont to advance ELDON, manual to improve PROM to full
--- NOTE | 2023-09-05 11:22 | PT.OTN ---
Current Diagnoses Unspecified rotator cuff tear or rupture of right shoulder, not specified as traumatic (09/05/23) Strain of other muscles, fascia and tendons at shoulder and upper arm level, right arm, subsequent encounter (09/05/23) Physical Therapy Treatment Note PT-OP-A Visit Information Start: 07/04/23 17:57 Freq: Status: Active Protocol: Document 09/05/23 10:37 [facility] (Rec: 09/05/23 11:22 [facility] [id number]) Out-Patient Physical Therapy Visit Information Visit Information Visit Type Treatment Note Visit Note 12/11 Visit Start Time 10:37 Visit Stop Time 11:15 Total Visit Minutes 38 Visit Number 13 Number of CAN LINE OPERATOR Visits 0 PT-OP-B Current Condition Start: 07/04/23 17:57 Freq: Status: Active Protocol: Document 07/09/23 12:13 [facility] (Rec: 07/09/23 16:03 [facility] [id number]) Current Condition History of Current Condition History of Current Condition Pt was lifting an aluminum boat out in front and heard/ felt it on Apr 03. He had full thickness RCT and had it repaired and subacromial decompression. He had surgery 07/04/23. He reports he took a shower yesterday adn almost paased out. He can't sleep on his back so have been sleeping on his side. Meds have helped w/pain. He has been phasing out of it oxy/tylenol. He takes them as needed. He sees Dr. Maurer on 07/14. He can dress himself etc. He is R handed. 2004 L RCR Treatment Goals Patient/Caregiver Goals Goals: fishing, hunting (bow, pistol, rifle), target shooting, fixing things, lifting (dumbells and bands), use arm again (mobility biggest concern) PT-OP-C Subjective Start: 07/04/23 17:57 Freq: Status: Active Protocol: Document 09/05/23 10:37 [facility] (Rec: 09/05/23 11:22 [facility] [id number]) OP-PT Subjective Patient Comments Patient Comments Pt reports shoulder is sore but compliant w/exercises. Notes he feels like range is imprvoing and shoulder is getting stronger. PT-OP-F Manual Assessment Start: 07/04/23 17:57 Freq: Status: Active Protocol: Document 07/09/23 12:13 [facility] (Rec: 07/09/23 16:03 [facility] [id number]) Manual Assessments Other Manual Assessments Other Manual Assessments incisions covered w/ steristrips, bruising through brachium to elbow PT-OP-K Range of Motion Start: 07/04/23 17:57 Freq: Status: Active Protocol: Document 08/15/23 10:34 BS (Rec: 08/15/23 11:36 BS [id number]) Shoulder Goniometric Range of Motion Shoulder Right Active Flexion 35 Extension 30 Abduction 39 External Rotation at 0 degrees Abduction 30 Internal Rotation Behind Back (text) mid buttocks Right Passive Flexion 116 External Rotation at 45 degrees 58 Abduction Internal Rotation 39 Comments in scap plane /rotations Left Active Flexion 160 Extension 70 Abduction 180 External Rotation at 90 degrees 86 Abduction Internal Rotation 44 Internal Rotation Behind Back (text) T6 Comments IR at 90 deg PT-OP-Q Treatments Start: 07/04/23 17:57 Freq: Status: Active Protocol: Document 09/05/23 10:37 [facility] (Rec: 09/05/23 11:22 [facility] [id number]) Therapeutic Exercises Supine Exercises serratus punch Side bilateral Reps/Minutes 15 SHoulder flex Supine Exercise Name AROM Side right Reps/Minutes 15 Sidelying Exercises abd Sidelying Exercise Name AAROM Side right Reps/Minutes 4 Comments stopped d/t pain ER Side right Reps/Minutes 15 Sitting Exercises Wen's Sitting Exercise Name flex, scap, abd, IR Side right Reps/Minutes x12 ea Comments cues for control and tolerable range Standing Exercises isometrics Standing Exercise Name flex, ext, abd, ER, IR Side right Reps/Minutes 5 sec x8 ea motion flex Standing Exercise Name wall crawl Side right Reps/Minutes 8 Manual Therapy Treatment Joint Mobilizations R GH jt Direction distraction, inf, post, lat gapping Grade III Comments w/gentle ROM PT-OP-R Modalities Start: 07/04/23 17:57 Freq: Status: Active Protocol: Document 08/22/23 10:37 [facility] (Rec: 08/22/23 11:24 [facility] [id number]) Hot Pack/Cold Pack Treatment CP Location R shld Patient Position Supine Treatment Duration (minutes) 10 Patient Tolerance Good PT-OP-T Assessment and Plan Start: 07/04/23 17:57 Freq: Status: Active Protocol: Document 09/05/23 10:37 [facility] (Rec: 09/05/23 11:22 [facility] [id number]) Physical Therapy Assessment Goals quick dash Impairment 54.54 Short Term Goal (STG) Pt will improve quick dash score to no greater than 35 to show improved functional ability. 08/15- 65.9, pt reported he answered in referernce to RUE only this time compared to eval STG Duration 08/22/23 Halfway Goal (LTG) Pt will improve quick dash score to no greater than 20 to show improved functional ability. LTG Duration 10/01/23 strength Short Term Goal (STG) Pt will be indep w/HEP for strength and ROM per PT based on protocol. 08/15- progressing, ROM HEP added today STG Duration 09/01 Halfway Goal (LTG) Pt will score at least 4-/5 on all MMT on RUE to show good start to progression of RUE strength to allow return to household activities w/o inc pain. LTG Duration 10/01/23 ROM Short Term Goal (STG) Pt will have full PROM with no more than 2/10 pain 08/15- progressing STG Duration 09/01 Halfway Goal (LTG) Pt will have full AROM in order to allow pt to return overhead activities and dressing w/o inc pain. LTG Duration 10/01/23 Assessment Summary Assessment Pt cont ot require cues w/ overahead motions to avoid excessive scap elevation. He did improve w/mirror an cues though. AROM is improving and tolerated isometrics well along w/most AROM actvitiies today. Improved PROM IR after manual. Physical Therapy Plan Next Visit Focus/Plan Next Note Type Treatment Note Next Visit Plan 10-10 weeks so can start light tband and prone exercises; cont to advance AROM; manual to improve PROM to full
--- NOTE | 2023-09-12 10:34 | PT.OTN ---
Current Diagnoses Unspecified rotator cuff tear or rupture of right shoulder, not specified as traumatic (09/12/23) Strain of other muscles, fascia and tendons at shoulder and upper arm level, right arm, subsequent encounter (09/12/23) Physical Therapy Treatment Note PT-OP-A Visit Information Start: 07/04/23 17:57 Freq: Status: Active Protocol: Document 09/12/23 09:54 [facility] (Rec: 09/12/23 10:34 [facility] [id number]) Out-Patient Physical Therapy Visit Information Visit Information Visit Type Treatment Note Visit Note 01/10 Visit Start Time 09:50 Visit Stop Time 10:30 Total Visit Minutes 40 Visit Number 14 Number of BRIDGE WORKER Visits 0 PT-OP-B Current Condition Start: 07/04/23 17:57 Freq: Status: Active Protocol: Document 07/09/23 12:13 [facility] (Rec: 07/09/23 16:03 [facility] [id number]) Current Condition History of Current Condition History of Current Condition Pt was lifting an aluminum boat out in front and heard/ felt it on Apr 03. He had full thickness RCT and had it repaired and subacromial decompression. He had surgery 07/04/23. He reports he took a shower yesterday adn almost paased out. He can't sleep on his back so have been sleeping on his side. Meds have helped w/pain. He has been phasing out of it oxy/tylenol. He takes them as needed. He sees Dr. Maurer on 07/14. He can dress himself etc. He is R handed. 2004 L RCR Treatment Goals Patient/Caregiver Goals Goals: fishing, hunting (bow, pistol, rifle), target shooting, fixing things, lifting (dumbells and bands), use arm again (mobility biggest concern) PT-OP-C Subjective Start: 07/04/23 17:57 Freq: Status: Active Protocol: Document 09/12/23 09:54 [facility] (Rec: 09/12/23 10:34 [facility] [id number]) OP-PT Subjective Patient Comments Patient Comments Pt backed off on how hard he is stretching and his shoulder is less sore. PT-OP-F Manual Assessment Start: 07/04/23 17:57 Freq: Status: Active Protocol: Document 07/09/23 12:13 [facility] (Rec: 07/09/23 16:03 [facility] [id number]) Manual Assessments Other Manual Assessments Other Manual Assessments incisions covered w/ steristrips, bruising through brachium to elbow PT-OP-K Range of Motion Start: 07/04/23 17:57 Freq: Status: Active Protocol: Document 08/15/23 10:34 BS (Rec: 08/15/23 11:36 BS [id number]) Shoulder Goniometric Range of Motion Shoulder Right Active Flexion 35 Extension 30 Abduction 39 External Rotation at 0 degrees Abduction 30 Internal Rotation Behind Back (text) mid buttocks Right Passive Flexion 116 External Rotation at 45 degrees 58 Abduction Internal Rotation 39 Comments in scap plane /rotations Left Active Flexion 160 Extension 70 Abduction 180 External Rotation at 90 degrees 86 Abduction Internal Rotation 44 Internal Rotation Behind Back (text) T6 Comments IR at 90 deg PT-OP-Q Treatments Start: 07/04/23 17:57 Freq: Status: Active Protocol: Document 09/12/23 09:54 [facility] (Rec: 09/12/23 10:34 [facility] [id number]) Therapeutic Exercises Supine Exercises SHoulder flex Supine Exercise Name AROM Side right Reps/Minutes 12 Prone Exercises scaption Side right Reps/Minutes 10 Comments small range Habd Side right Reps/Minutes 10 ext Side right Reps/Minutes 10 Sidelying Exercises abd Side right Reps/Minutes 12 Sitting Exercises Wen's Sitting Exercise Name flex, scap, abd, IR Side right Reps/Minutes x12 ea Comments cues for control and tolerable range Standing Exercises IR Standing Exercise Name at side Side right Equipment Used peach band w/towel at side Reps/Minutes 10 shoulder ext Standing Exercise Name 1. row 2. ext Side bilateral Reps/Minutes x10 ea Shld ER Side right Equipment Used peach band w/towel at side Reps/Minutes 10 Manual Therapy Treatment Soft Tissue Mobilization R shoulder Body Location R pec Mobilization Type Rolling Intensity/Depth Moderate Comments w/abd Joint Mobilizations R GH jt Direction distraction w/flex, inf glide, post glide w/IR FM PT-OP-R Modalities Start: 07/04/23 17:57 Freq: Status: Active Protocol: Document 08/22/23 10:37 [facility] (Rec: 08/22/23 11:24 [facility] [id number]) Hot Pack/Cold Pack Treatment CP Location R shld Patient Position Supine Treatment Duration (minutes) 10 Patient Tolerance Good PT-OP-T Assessment and Plan Start: 07/04/23 17:57 Freq: Status: Active Protocol: Document 09/12/23 09:54 [facility] (Rec: 09/12/23 10:34 [facility] [id number]) Physical Therapy Assessment Goals quick dash Impairment 54.54 Short Term Goal (STG) Pt will improve quick dash score to no greater than 35 to show improved functional ability. 08/15- 65.9, pt reported he answered in referernce to RUE only this time compared to eval STG Duration 08/22/23 Mcfp Goal (LTG) Pt will improve quick dash score to no greater than 20 to show improved functional ability. LTG Duration 10/01/23 strength Short Term Goal (STG) Pt will be indep w/HEP for strength and ROM per PT based on protocol. 08/15- progressing, ROM HEP added today STG Duration 09/01 Mcfp Goal (LTG) Pt will score at least 4-/5 on all MMT on RUE to show good start to progression of RUE strength to allow return to household activities w/o inc pain. LTG Duration 10/01/23 ROM Short Term Goal (STG) Pt will have full PROM with no more than 2/10 pain 08/15- progressing STG Duration 09/01 C 40A Crew Chief Goal (LTG) Pt will have full AROM in order to allow pt to return overhead activities and dressing w/o inc pain. LTG Duration 10/01/23 Assessment Summary Assessment Pt did well tolerating progression of exercises and is doing better w/AROM and strengthening. DC isometrics at home to change for more AROM and tband exercises. Physical Therapy Plan Frequency and Duration Frequency of Treatment 1-2x/wk Duration of treatment (weeks) 12 Plan of Care Start Date 07/09/23 Plan of Care End Date 10/01/23 Next Visit Focus/Plan Next Note Type Treatment Note Next Visit Plan assess how light tband went and prone exercises; cont to advance AROM; manual to improve PROM to full 12 weeks (09/26) 14 weeks (10/10)
--- NOTE | 2023-09-17 10:33 | PT.OTN ---
Current Diagnoses Unspecified rotator cuff tear or rupture of right shoulder, not specified as traumatic (09/17/23) Strain of other muscles, fascia and tendons at shoulder and upper arm level, right arm, subsequent encounter (09/17/23) Physical Therapy Treatment Note PT-OP-A Visit Information Start: 07/04/23 17:57 Freq: Status: Active Protocol: Document 09/17/23 09:52 [facility] (Rec: 09/17/23 10:33 [facility] [id number]) Out-Patient Physical Therapy Visit Information Visit Information Visit Type Treatment Note Visit Note 02/10 Visit Start Time 09:50 Visit Stop Time 10:31 Total Visit Minutes 41 Visit Number 15 Number of EQUIPMENT OPERATOR/LABORER Visits 0 PT-OP-B Current Condition Start: 07/04/23 17:57 Freq: Status: Active Protocol: Document 07/09/23 12:13 [facility] (Rec: 07/09/23 16:03 [facility] [id number]) Current Condition History of Current Condition History of Current Condition Pt was lifting an aluminum boat out in front and heard/ felt it on Apr 03. He had full thickness RCT and had it repaired and subacromial decompression. He had surgery 07/04/23. He reports he took a shower yesterday adn almost paased out. He can't sleep on his back so have been sleeping on his side. Meds have helped w/pain. He has been phasing out of it oxy/tylenol. He takes them as needed. He sees Dr. Maurer on 07/14. He can dress himself etc. He is R handed. 2004 L RCR Treatment Goals Patient/Caregiver Goals Goals: fishing, hunting (bow, pistol, rifle), target shooting, fixing things, lifting (dumbells and bands), use arm again (mobility biggest concern) PT-OP-C Subjective Start: 07/04/23 17:57 Freq: Status: Active Protocol: Document 09/17/23 09:52 [facility] (Rec: 09/17/23 10:33 [facility] [id number]) OP-PT Subjective Patient Comments Patient Comments Pt reports some mm soreness w/ strengthing but doing ok PT-OP-F Manual Assessment Start: 07/04/23 17:57 Freq: Status: Active Protocol: Document 07/09/23 12:13 [facility] (Rec: 07/09/23 16:03 [facility] [id number]) Manual Assessments Other Manual Assessments Other Manual Assessments incisions covered w/ steristrips, bruising through brachium to elbow PT-OP-K Range of Motion Start: 07/04/23 17:57 Freq: Status: Active Protocol: Document 08/15/23 10:34 BS (Rec: 08/15/23 11:36 BS [id number]) Shoulder Goniometric Range of Motion Shoulder Right Active Flexion 35 Extension 30 Abduction 39 External Rotation at 0 degrees Abduction 30 Internal Rotation Behind Back (text) mid buttocks Right Passive Flexion 116 External Rotation at 45 degrees 58 Abduction Internal Rotation 39 Comments in scap plane /rotations Left Active Flexion 160 Extension 70 Abduction 180 External Rotation at 90 degrees 86 Abduction Internal Rotation 44 Internal Rotation Behind Back (text) T6 Comments IR at 90 deg PT-OP-Q Treatments Start: 07/04/23 17:57 Freq: Status: Active Protocol: Document 09/17/23 09:52 [facility] (Rec: 09/17/23 10:33 [facility] [id number]) Therapeutic Exercises Supine Exercises serratus punch Side bilateral Equipment Used 1# Reps/Minutes 10 Prone Exercises scaption Side right Reps/Minutes 10 Comments small range Habd Side right Reps/Minutes 10 ext Side right Reps/Minutes 10 Sidelying Exercises abd Side right Reps/Minutes 12 Sitting Exercises ER Sitting Exercise Name elbow about 60 Side right Reps/Minutes 10 Wen's Sitting Exercise Name flex, scap, abd, IR Side right Reps/Minutes x12 ea Comments cues for control and tolerable range Standing Exercises serratus punch Side bilateral Equipment Used peach Reps/Minutes 2x4 flex Standing Exercise Name wall crawl w/lift off Side right Reps/Minutes 10 IR Standing Exercise Name at side Side right Equipment Used peach band w/towel at side Reps/Minutes 10 shoulder ext Standing Exercise Name 1. row 2. ext Side bilateral Reps/Minutes x10 ea Shld ER Side right Equipment Used peach band w/towel at side Reps/Minutes 10 PT-OP-R Modalities Start: 07/04/23 17:57 Freq: Status: Active Protocol: Document 08/22/23 10:37 [facility] (Rec: 08/22/23 11:24 [facility] [id number]) Hot Pack/Cold Pack Treatment CP Location R shld Patient Position Supine Treatment Duration (minutes) 10 Patient Tolerance Good PT-OP-T Assessment and Plan Start: 07/04/23 17:57 Freq: Status: Active Protocol: Document 09/17/23 09:52 [facility] (Rec: 09/17/23 10:33 [facility] [id number]) Physical Therapy Assessment Goals quick dash Impairment 54.54 Short Term Goal (STG) Pt will improve quick dash score to no greater than 35 to show improved functional ability. 08/15- 65.9, pt reported he answered in referernce to RUE only this time compared to eval STG Duration 08/22/23 Assisted Goal (LTG) Pt will improve quick dash score to no greater than 20 to show improved functional ability. LTG Duration 10/01/23 strength Short Term Goal (STG) Pt will be indep w/HEP for strength and ROM per PT based on protocol. 08/15- progressing, ROM HEP added today STG Duration 09/01 C++ Professor Goal (LTG) Pt will score at least 4-/5 on all MMT on RUE to show good start to progression of RUE strength to allow return to household activities w/o inc pain. LTG Duration 10/01/23 ROM Short Term Goal (STG) Pt will have full PROM with no more than 2/10 pain 08/15- progressing STG Duration 09/01 C++ Professor Goal (LTG) Pt will have full AROM in order to allow pt to return overhead activities and dressing w/o inc pain. LTG Duration 10/01/23 Assessment Summary Assessment Pt did well iwth exercises. Min cueing to avoid scap elevation during exercises. He did have difficulty w/ serratus punch standing but did better in supine especially w/PT tactile cueing . Physical Therapy Plan Next Visit Focus/Plan Next Note Type Treatment Note Next Visit Plan avoid UBE; cont to advance strengthening; manual to improve PROM to full per protocol 12 weeks (09/26) 14 weeks (10/10)
--- NOTE | 2023-10-02 17:39 | PT.OTN ---
Current Diagnoses Unspecified rotator cuff tear or rupture of right shoulder, not specified as traumatic (10/02/23) Strain of other muscles, fascia and tendons at shoulder and upper arm level, right arm, subsequent encounter (10/02/23) Physical Therapy Treatment Note PT-OP-A Visit Information Start: 07/04/23 17:57 Freq: Status: Active Protocol: Document 10/02/23 13:01 [facility] (Rec: 10/02/23 17:39 [facility] [id number]) Out-Patient Physical Therapy Visit Information Visit Information Visit Type Progress Note Visit Note 09/12 Visit Start Time 13:02 Visit Stop Time 13:45 Visit Number 16 Number of RUBBER TIRE CURER Visits 0 PT-OP-B Current Condition Start: 07/04/23 17:57 Freq: Status: Active Protocol: Document 07/09/23 12:13 [facility] (Rec: 07/09/23 16:03 [facility] [id number]) Current Condition History of Current Condition History of Current Condition Pt was lifting an aluminum boat out in front and heard/ felt it on Apr 03. He had full thickness RCT and had it repaired and subacromial decompression. He had surgery 07/04/23. He reports he took a shower yesterday adn almost paased out. He can't sleep on his back so have been sleeping on his side. Meds have helped w/pain. He has been phasing out of it oxy/tylenol. He takes them as needed. He sees Dr. Maurer on 07/14. He can dress himself etc. He is R handed. 2004 L RCR Treatment Goals Patient/Caregiver Goals Goals: fishing, hunting (bow, pistol, rifle), target shooting, fixing things, lifting (dumbells and bands), use arm again (mobility biggest concern) PT-OP-C Subjective Start: 07/04/23 17:57 Freq: Status: Active Protocol: Document 10/02/23 13:01 [facility] (Rec: 10/02/23 17:39 [facility] [id number]) OP-PT Subjective Patient Comments Patient Comments Pt reports MD saw him and was pleased w/pt progress and plans to send something over. He said he can do whatever he wants as long as pain is his guide. Patient Questionnaires Quick Dash- Upper Extremity Quick Dash UE Score 36 PT-OP-F Manual Assessment Start: 07/04/23 17:57 Freq: Status: Active Protocol: Document 07/09/23 12:13 [facility] (Rec: 07/09/23 16:03 [facility] [id number]) Manual Assessments Other Manual Assessments Other Manual Assessments incisions covered w/ steristrips, bruising through brachium to elbow PT-OP-K Range of Motion Start: 07/04/23 17:57 Freq: Status: Active Protocol: Document 10/02/23 13:01 [facility] (Rec: 10/02/23 17:39 [facility] [id number]) Shoulder Goniometric Range of Motion Shoulder Right Active Flexion 99 Extension 60 Abduction 97 External Rotation at 90 degrees 59 Abduction External Rotation at 0 degrees Abduction 55 Internal Rotation Behind Back (text) L3 Comments 90/90 ER-goes out of 90 deg abd as inc; abd slightly towards scaption Right Passive Flexion 145 Abduction 120 External Rotation at 90 degrees 62 Abduction Internal Rotation 53 Comments 90/90 ir PT-OP-M Strength Start: 07/04/23 17:57 Freq: Status: Active Protocol: Document 10/02/23 13:01 [facility] (Rec: 10/02/23 17:39 [facility] [id number]) Shoulder Strength Shoulder Manual Muscle Testing Right Flexion 3+ Fair+ Extension 4 Good Abduction (C5) 3 Fair External Rotation 3+ Fair+ Internal Rotation 4+ Good+ Left Flexion 5 Normal Extension 5 Normal Abduction (C5) 5 Normal External Rotation 5 Normal Internal Rotation 5 Normal Horizontal Abduction 5 Normal PT-OP-Q Treatments Start: 07/04/23 17:57 Freq: Status: Active Protocol: Document 10/02/23 13:01 [facility] (Rec: 10/02/23 17:39 [facility] [id number]) Therapeutic Exercises Prone Exercises scaption Side right Reps/Minutes 10 Comments available range Habd Side right Reps/Minutes 10 ext Side right Reps/Minutes 10 Sitting Exercises Wen's Sitting Exercise Name flex, scap, abd, IR Side right Reps/Minutes x12 ea Comments cues for control and tolerable range Standing Exercises stretch Standing Exercise Name pec w/ext then lift off wall Side right Reps/Minutes 30 sec then 10 wall walk Standing Exercise Name w/lift off wall Side right Reps/Minutes walk up w/10 lift off wall attempts walk aways Standing Exercise Name flex then active lifts R Side bilateral Reps/Minutes 30 sec then 10 reps Comments attempt to lift up shoulder ext Standing Exercise Name ext Side bilateral Equipment Used orange band; green band Reps/Minutes 10 ea Shld ER Side right Equipment Used orange band w/towel at side Reps/Minutes 15 Manual Therapy Treatment Joint Mobilizations R GH jt Comments inf glide & translation, post glide and translation,lat gapping FM Neuro Re-Education Treatment Other Activities facilitation Reps/Duration 8 min Comments inf glide & translation, post glide and translation,lat gapping-facilitation w/ sustaine dholds then COI after . PT-OP-R Modalities Start: 07/04/23 17:57 Freq: Status: Active Protocol: Document 08/22/23 10:37 [facility] (Rec: 08/22/23 11:24 [facility] [id number]) Hot Pack/Cold Pack Treatment CP Location R shld Patient Position Supine Treatment Duration (minutes) 10 Patient Tolerance Good PT-OP-T Assessment and Plan Start: 07/04/23 17:57 Freq: Status: Active Protocol: Document 10/02/23 13:01 [facility] (Rec: 10/02/23 17:39 [facility] [id number]) Physical Therapy Assessment Goals quick dash Impairment 54.54 Short Term Goal (STG) Pt will improve quick dash score to no greater than 35 to show improved functional ability. 08/15- 65.9, pt reported he answered in referernce to RUE only this time compared to eval 10/02-much improved 36 STG Duration 11/01 Assistant Banquet Manager Goal (LTG) Pt will improve quick dash score to no greater than 20 to show improved functional ability. LTG Duration 12/10 strength Short Term Goal (STG) Pt will be indep w/HEP for strength and ROM per PT based on protocol. 08/15- progressing, ROM HEP added today STG Duration achieved when home; advancing as able Assistant Banquet Manager Goal (LTG) Pt will score at least 4+/5 on all MMT on RUE to show good start to progression of RUE strength to allow return to household activities w/o inc pain. 10/02-improving LTG Duration 4/3 ROM Short Term Goal (STG) Pt will have full PROM with no more than 2/10 pain 08/15- progressing 10/02 mild pain end ranges slight limit STG Duration 11/01 Assistant Banquet Manager Goal (LTG) Pt will have full AROM in order to allow pt to return overhead activities and dressing w/o inc pain. 10/02-no pain w/dressing imprvoinging LTG Duration 12/04 Assessment Summary Assessment Pt is making great progress towards goals. He initially had slower progress towards AROM, but has recently inc further and was able to inc more w/use of exercsies and improve PROM w/manual today. He does still have shoulder weakness with only recent ( past few weeks) work on strengthening per protocol. Pt has not been fully compliant w/HEP d/t vacation but has been encouraged on importance to cont. Cont PT to work on R shoulder mobility, stability and functional capabilities so pt can return to full typical function. Physical Therapy Plan Frequency and Duration Frequency of Treatment 1x/Week Duration of treatment (weeks) 10 Plan of Care Start Date 10/02/23 Plan of Care End Date 12/11/23 Therapeutic Interventions Therapeutic Interventions Gait Training,Home Exercise Program,Joint Mobilizations, Manual Therapy,Neuromuscular Re-education,Patient/Caregiver Education,Self-Care/Home Management,Soft Tissue Mobilization,Taping, Therapeutic Activities, Therapeutic Exercises Modalities Cold Pack/Ice Massage,Electric Stimulation,Hot Packs, Infrared Therapy,Ultrasound Next Visit Focus/Plan Next Note Type Treatment Note Next Visit Plan cont to advance strength and ROM but nothing painful 14 weeks (10/10)
--- NOTE | 2023-10-02 17:39 | PT.OPPOC ---
Physical, Occupational & Speech Therapy At [facility] Current Diagnoses Unspecified rotator cuff tear or rupture of right shoulder, not specified as traumatic (10/02/23) Strain of other muscles, fascia and tendons at shoulder and upper arm level, right arm, subsequent encounter (10/02/23) Visit Care Team Role Provider Type Juan Carlos Gonzalez MD Family Provider Physician Primary Care Provider Specialty: Family Practice Address: [address] [place] [address], [address], [place], [address] Email: [email or web address] Raoul Maurer MD Attending Provider Physician Referring Provider Specialty: Orthopedics Orthopedic Surgery Address: [address] [place] [address], [id number] Email: [email or web address] Plan Of Care PT-OP-T Assessment and Plan Start: 07/04/23 17:57 Freq: Status: Active Protocol: Document 10/02/23 13:01 [facility] (Rec: 10/02/23 17:39 [facility] [id number]) Physical Therapy Assessment Goals quick dash Impairment 54.54 Short Term Goal (STG) Pt will improve quick dash score to no greater than 35 to show improved functional ability. 08/15- 65.9, pt reported he answered in referernce to RUE only this time compared to eval 10/02-much improved 36 STG Duration 11/01 Major Gifts Officer Goal (LTG) Pt will improve quick dash score to no greater than 20 to show improved functional ability. LTG Duration /9 strength Short Term Goal (STG) Pt will be indep w/HEP for strength and ROM per PT based on protocol. 08/15- progressing, ROM HEP added today STG Duration achieved when home; advancing as able Major Gifts Officer Goal (LTG) Pt will score at least 4+/5 on all MMT on RUE to show good start to progression of RUE strength to allow return to household activities w/o inc pain. 10/02-improving LTG Duration 4/3 ROM Short Term Goal (STG) Pt will have full PROM with no more than 2/10 pain 08/15- progressing 10/02 mild pain end ranges slight limit STG Duration 11/01 Major Gifts Officer Goal (LTG) Pt will have full AROM in order to allow pt to return overhead activities and dressing w/o inc pain. 10/02-no pain w/dressing imprvoinging LTG Duration 12/04 Assessment Summary Assessment Pt is making great progress towards goals. He initially had slower progress towards AROM, but has recently inc further and was able to inc more w/use of exercsies and improve PROM w/manual today. He does still have shoulder weakness with only recent ( past few weeks) work on strengthening per protocol. Pt has not been fully compliant w/HEP d/t vacation but has been encouraged on importance to cont. Cont PT to work on R shoulder mobility, stability and functional capabilities so pt can return to full typical function. Physical Therapy Plan Frequency and Duration Frequency of Treatment 1x/Week Duration of treatment (weeks) 10 Plan of Care Start Date 10/02/23 Plan of Care End Date 12/11/23 Therapeutic Interventions Therapeutic Interventions Gait Training,Home Exercise Program,Joint Mobilizations, Manual Therapy,Neuromuscular Re-education,Patient/Caregiver Education,Self-Care/Home Management,Soft Tissue Mobilization,Taping, Therapeutic Activities, Therapeutic Exercises Modalities Cold Pack/Ice Massage,Electric Stimulation,Hot Packs, Infrared Therapy,Ultrasound Next Visit Focus/Plan Next Note Type Treatment Note Next Visit Plan cont to advance strength and ROM but nothing painful 14 weeks (10/10) Plan of Care Dates Plan of Care Start Date 10/02/23 Plan of Care End Date 12/11/23 Electronically Signed by: Darcy Sorensen, PT 10/02/23 [id number] If you are in agreement with this Plan of Care, please return a signed and dated copy. I have reviewed this Plan of Care and certify that the skilled therapy services above are required to meet the patient?s needs. Physician Signature Date Printed Name and Credentials Clinical Instructor Signature Printed Name and Credentials
--- NOTE | 2023-10-10 12:13 | PT.OTN ---
Current Diagnoses Unspecified rotator cuff tear or rupture of right shoulder, not specified as traumatic (10/10/23) Strain of other muscles, fascia and tendons at shoulder and upper arm level, right arm, subsequent encounter (10/10/23) Physical Therapy Treatment Note PT-OP-A Visit Information Start: 07/04/23 17:57 Freq: Status: Active Protocol: Document 10/10/23 11:23 [facility] (Rec: 10/10/23 12:13 [facility] [id number]) Out-Patient Physical Therapy Visit Information Visit Information Visit Type Treatment Note Visit Note 10/13 Visit Start Time : Visit Stop Time 12:00 Visit Number 17 Number of SURFACE MOUNT TECHNOLOGY OPERATOR Visits 0 PT-OP-B Current Condition Start: 07/04/23 17:57 Freq: Status: Active Protocol: Document 07/09/23 12:13 [facility] (Rec: 07/09/23 16:03 [facility] [id number]) Current Condition History of Current Condition History of Current Condition Pt was lifting an aluminum boat out in front and heard/ felt it on Apr 03. He had full thickness RCT and had it repaired and subacromial decompression. He had surgery 07/04/23. He reports he took a shower yesterday adn almost paased out. He can't sleep on his back so have been sleeping on his side. Meds have helped w/pain. He has been phasing out of it oxy/tylenol. He takes them as needed. He sees Dr. Maurer on 07/14. He can dress himself etc. He is R handed. 2004 L RCR Treatment Goals Patient/Caregiver Goals Goals: fishing, hunting (bow, pistol, rifle), target shooting, fixing things, lifting (dumbells and bands), use arm again (mobility biggest concern) PT-OP-C Subjective Start: 07/04/23 17:57 Freq: Status: Active Protocol: Document 10/10/23 11:23 [facility] (Rec: 10/10/23 12:13 [facility] [id number]) OP-PT Subjective Patient Comments Patient Comments Pt reports compliance w/ exercises. did hammering for about 1 hour. Was sore after that. hit his head on a beam a few days ago but just has pain where he hit, no other symptoms PT-OP-F Manual Assessment Start: 07/04/23 17:57 Freq: Status: Active Protocol: Document 07/09/23 12:13 [facility] (Rec: 07/09/23 16:03 [facility] [id number]) Manual Assessments Other Manual Assessments Other Manual Assessments incisions covered w/ steristrips, bruising through brachium to elbow PT-OP-K Range of Motion Start: 07/04/23 17:57 Freq: Status: Active Protocol: Document 10/02/23 13:01 [facility] (Rec: 10/02/23 17:39 [facility] [id number]) Shoulder Goniometric Range of Motion Shoulder Right Active Flexion 99 Extension 60 Abduction 97 External Rotation at 90 degrees 59 Abduction External Rotation at 0 degrees Abduction 55 Internal Rotation Behind Back (text) L3 Comments 90/90 ER-goes out of 90 deg abd as inc; abd slightly towards scaption Right Passive Flexion 145 Abduction 120 External Rotation at 90 degrees 62 Abduction Internal Rotation 53 Comments 90/90 ir PT-OP-M Strength Start: 07/04/23 17:57 Freq: Status: Active Protocol: Document 10/02/23 13:01 [facility] (Rec: 10/02/23 17:39 [facility] [id number]) Shoulder Strength Shoulder Manual Muscle Testing Right Flexion 3+ Fair+ Extension 4 Good Abduction (C5) 3 Fair External Rotation 3+ Fair+ Internal Rotation 4+ Good+ Left Flexion 5 Normal Extension 5 Normal Abduction (C5) 5 Normal External Rotation 5 Normal Internal Rotation 5 Normal Horizontal Abduction 5 Normal PT-OP-Q Treatments Start: 07/04/23 17:57 Freq: Status: Active Protocol: Document 10/10/23 11:23 [facility] (Rec: 10/10/23 12:13 [facility] [id number]) Therapeutic Exercises Prone Exercises scaption Side right Reps/Minutes 15 Comments available range Habd Side right Equipment Used 1# Reps/Minutes 15 ext Side right Equipment Used 3# Reps/Minutes 15 Sitting Exercises ER Sitting Exercise Name elbow at 90 Side right Equipment Used 2# Reps/Minutes 10 Wen's Sitting Exercise Name flex, scap, abd, IR Side right Reps/Minutes x12 ea Comments cues for control and tolerable range Standing Exercises stretch Standing Exercise Name pec w/ext then lift off wall Side right Reps/Minutes 30 sec then 5 wall walk Standing Exercise Name w/lift off wall Side right Reps/Minutes walk up w/12 lift off wall IR Standing Exercise Name 90/90 Side right Equipment Used orange band Reps/Minutes 15 Shld ER Standing Exercise Name 1. at side w/towel 2. 90/90 Side right Equipment Used 1.orange band 2.peach band Reps/Minutes 15 ea Manual Therapy Treatment Soft Tissue Mobilization R shoulder Body Location R teres, lat, pec Mobilization Type Rolling,Sustained Pressure Intensity/Depth Moderate Comments w/flex, abd Joint Mobilizations AC Comments R clavicle ant FM w/dowel D2 R GH jt Comments R inf glide w/dowel D2 FM PT-OP-R Modalities Start: 07/04/23 17:57 Freq: Status: Active Protocol: Document 08/22/23 10:37 [facility] (Rec: 08/22/23 11:24 [facility] [id number]) Hot Pack/Cold Pack Treatment CP Location R shld Patient Position Supine Treatment Duration (minutes) 10 Patient Tolerance Good PT-OP-T Assessment and Plan Start: 07/04/23 17:57 Freq: Status: Active Protocol: Document 10/10/23 11:23 [facility] (Rec: 10/10/23 12:13 [facility] [id number]) Physical Therapy Assessment Goals quick dash Impairment 54.54 Short Term Goal (STG) Pt will improve quick dash score to no greater than 35 to show improved functional ability. 08/15- 65.9, pt reported he answered in referernce to RUE only this time compared to eval 10/02-much improved 36 STG Duration 11/01 Window Systems Administrator Goal (LTG) Pt will improve quick dash score to no greater than 20 to show improved functional ability. LTG Duration 12/10 strength Short Term Goal (STG) Pt will be indep w/HEP for strength and ROM per PT based on protocol. 08/15- progressing, ROM HEP added today STG Duration achieved when home; advancing as able Window Systems Administrator Goal (LTG) Pt will score at least 4+/5 on all MMT on RUE to show good start to progression of RUE strength to allow return to household activities w/o inc pain. 10/02-improving LTG Duration 4 ROM Short Term Goal (STG) Pt will have full PROM with no more than 2/10 pain 08/15- progressing 10/02 mild pain end ranges slight limit STG Duration 11/01 Long-Term Goal (LTG) Pt will have full AROM in order to allow pt to return overhead activities and dressing w/o inc pain. 10/02-no pain w/dressing imprvoinging LTG Duration 12/04 Assessment Summary Assessment Pt is cont to improve w/ strenth and did well w/form w/ old exercises and just needed some cues w/new exercises. He does improve range w/reps so encouraged to inc reps at home . Improved flex and abd w/ manual care. Physical Therapy Plan Frequency and Duration Frequency of Treatment 1x/Week Duration of treatment (weeks) 10 Plan of Care Start Date 10/02/23 Plan of Care End Date 12/11/23 Next Visit Focus/Plan Next Note Type Treatment Note Next Visit Plan cont to advance strength and ROM but nothing painful pt now 14 weeks
--- NOTE | 2023-10-15 10:44 | PT.OTN ---
Current Diagnoses Unspecified rotator cuff tear or rupture of right shoulder, not specified as traumatic (10/15/23) Strain of other muscles, fascia and tendons at shoulder and upper arm level, right arm, subsequent encounter (10/15/23) Physical Therapy Treatment Note PT-OP-A Visit Information Start: 07/04/23 17:57 Freq: Status: Active Protocol: Document 10/15/23 09:53 [facility] (Rec: 10/15/23 10:44 [facility] [id number]) Out-Patient Physical Therapy Visit Information Visit Information Visit Type Treatment Note Visit Note 11/10 Visit Start Time 09:50 Visit Stop Time 10:30 Visit Number 18 Number of FIBERGLASS AUTO BODY REPAIRER Visits 0 PT-OP-B Current Condition Start: 07/04/23 17:57 Freq: Status: Active Protocol: Document 07/09/23 12:13 [facility] (Rec: 07/09/23 16:03 [facility] [id number]) Current Condition History of Current Condition History of Current Condition Pt was lifting an aluminum boat out in front and heard/ felt it on Apr 03. He had full thickness RCT and had it repaired and subacromial decompression. He had surgery 07/04/23. He reports he took a shower yesterday adn almost paased out. He can't sleep on his back so have been sleeping on his side. Meds have helped w/pain. He has been phasing out of it oxy/tylenol. He takes them as needed. He sees Dr. Maurer on 07/14. He can dress himself etc. He is R handed. 2004 L RCR Treatment Goals Patient/Caregiver Goals Goals: fishing, hunting (bow, pistol, rifle), target shooting, fixing things, lifting (dumbells and bands), use arm again (mobility biggest concern) PT-OP-C Subjective Start: 07/04/23 17:57 Freq: Status: Active Protocol: Document 10/15/23 09:53 [facility] (Rec: 10/15/23 10:44 [facility] [id number]) OP-PT Subjective Patient Comments Patient Comments Pt reports he isn't getting in the strengthening as much as he'd like PT-OP-F Manual Assessment Start: 07/04/23 17:57 Freq: Status: Active Protocol: Document 07/09/23 12:13 [facility] (Rec: 07/09/23 16:03 [facility] [id number]) Manual Assessments Other Manual Assessments Other Manual Assessments incisions covered w/ steristrips, bruising through brachium to elbow PT-OP-K Range of Motion Start: 07/04/23 17:57 Freq: Status: Active Protocol: Document 10/02/23 13:01 [facility] (Rec: 10/02/23 17:39 [facility] [id number]) Shoulder Goniometric Range of Motion Shoulder Right Active Flexion 99 Extension 60 Abduction 97 External Rotation at 90 degrees 59 Abduction External Rotation at 0 degrees Abduction 55 Internal Rotation Behind Back (text) L3 Comments 90/90 ER-goes out of 90 deg abd as inc; abd slightly towards scaption Right Passive Flexion 145 Abduction 120 External Rotation at 90 degrees 62 Abduction Internal Rotation 53 Comments 90/90 ir PT-OP-M Strength Start: 07/04/23 17:57 Freq: Status: Active Protocol: Document 10/02/23 13:01 [facility] (Rec: 10/02/23 17:39 [facility] [id number]) Shoulder Strength Shoulder Manual Muscle Testing Right Flexion 3+ Fair+ Extension 4 Good Abduction (C5) 3 Fair External Rotation 3+ Fair+ Internal Rotation 4+ Good+ Left Flexion 5 Normal Extension 5 Normal Abduction (C5) 5 Normal External Rotation 5 Normal Internal Rotation 5 Normal Horizontal Abduction 5 Normal PT-OP-Q Treatments Start: 07/04/23 17:57 Freq: Status: Active Protocol: Document 10/15/23 09:53 [facility] (Rec: 10/15/23 10:44 [facility] [id number]) Therapeutic Exercises Prone Exercises scaption Side right Reps/Minutes 15 Comments available range Habd Side right Equipment Used 1# Reps/Minutes 15 ext Side right Equipment Used 3# Reps/Minutes 15 Sidelying Exercises IR Sidelying Exercise Name sleeper stretch Side right Reps/Minutes 30 sec Sitting Exercises ER Sitting Exercise Name elbow at 90 Side right Equipment Used 2# Reps/Minutes 15 Wen's Sitting Exercise Name flex, scap, abd, IR Side right Reps/Minutes x12 ea Comments cues for control and tolerable range Standing Exercises flex Standing Exercise Name HAbd w/flex Side bilateral Reps/Minutes 12 IR Standing Exercise Name 90/90 Side right Equipment Used orange band Reps/Minutes 15 Shld ER Standing Exercise Name 90/90 Side right Equipment Used orange band Reps/Minutes 15 Manual Therapy Treatment Soft Tissue Mobilization R shoulder Comments R lat & delt & post scap w/ sandra pose w/plunger R teres and pecs w/ER and abd R brachium circumfrential w/IR Joint Mobilizations AC Comments R clavicle ant FM w/dowel D2 R GH jt Comments R inf glide w/dowel D2 FM R post w/IR FM PT-OP-R Modalities Start: 07/04/23 17:57 Freq: Status: Active Protocol: Document 08/22/23 10:37 [facility] (Rec: 08/22/23 11:24 [facility] [id number]) Hot Pack/Cold Pack Treatment CP Location R shld Patient Position Supine Treatment Duration (minutes) 10 Patient Tolerance Good PT-OP-T Assessment and Plan Start: 07/04/23 17:57 Freq: Status: Active Protocol: Document 10/15/23 09:53 [facility] (Rec: 10/15/23 10:44 [facility] [id number]) Physical Therapy Assessment Goals quick dash Impairment 54.54 Short Term Goal (STG) Pt will improve quick dash score to no greater than 35 to show improved functional ability. 08/15- 65.9, pt reported he answered in referernce to RUE only this time compared to eval 10/02-much improved 36 STG Duration 11/01 [facility] Goal (LTG) Pt will improve quick dash score to no greater than 20 to show improved functional ability. LTG Duration 12/10 strength Short Term Goal (STG) Pt will be indep w/HEP for strength and ROM per PT based on protocol. 08/15- progressing, ROM HEP added today STG Duration achieved when home; advancing as able Water Operator Goal (LTG) Pt will score at least 4+/5 on all MMT on RUE to show good start to progression of RUE strength to allow return to household activities w/o inc pain. 10/02-improving LTG Duration 12/04 ROM Short Term Goal (STG) Pt will have full PROM with no more than 2/10 pain 08/15- progressing 10/02 mild pain end ranges slight limit STG Duration 11/01 Water Operator Goal (LTG) Pt will have full AROM in order to allow pt to return overhead activities and dressing w/o inc pain. 10/02-no pain w/dressing imprvoinging LTG Duration 4/3 Assessment Summary Assessment Pt had improved performance w/ exercises w/less cueing. He had much improved flex after manual care today. Physical Therapy Plan Frequency and Duration Frequency of Treatment 1x/Week Duration of treatment (weeks) 10 Plan of Care Start Date 10/02/23 Plan of Care End Date 12/11/23 Therapeutic Interventions Therapeutic Interventions Gait Training,Home Exercise Program,Joint Mobilizations, Manual Therapy,Neuromuscular Re-education,Patient/Caregiver Education,Self-Care/Home Management,Soft Tissue Mobilization,Taping, Therapeutic Activities, Therapeutic Exercises Modalities Cold Pack/Ice Massage,Electric Stimulation,Hot Packs, Infrared Therapy,Ultrasound Next Visit Focus/Plan Next Note Type Treatment Note Next Visit Plan cont to advance strength and ROM but nothing painful pt now 14 weeks
--- NOTE | 2023-11-05 13:51 | PT.OTN ---
Current Diagnoses Unspecified rotator cuff tear or rupture of right shoulder, not specified as traumatic (11/05/23) Strain of other muscles, fascia and tendons at shoulder and upper arm level, right arm, subsequent encounter (11/05/23) Physical Therapy Treatment Note PT-OP-A Visit Information Start: 07/04/23 17:57 Freq: Status: Active Protocol: Document 11/05/23 13:39 [facility] (Rec: 11/05/23 13:51 [facility] [id number]) Out-Patient Physical Therapy Visit Information Visit Information Visit Type Treatment Note Visit Note 12/11 Visit Start Time 13:03 Visit Stop Time 13:45 Visit Number 19 Number of FINANCIAL REPORTING SPECIALIST Visits 0 PT-OP-B Current Condition Start: 07/04/23 17:57 Freq: Status: Active Protocol: Document 07/09/23 12:13 [facility] (Rec: 07/09/23 16:03 [facility] [id number]) Current Condition History of Current Condition History of Current Condition Pt was lifting an aluminum boat out in front and heard/ felt it on Apr 03. He had full thickness RCT and had it repaired and subacromial decompression. He had surgery 07/04/23. He reports he took a shower yesterday adn almost paased out. He can't sleep on his back so have been sleeping on his side. Meds have helped w/pain. He has been phasing out of it oxy/tylenol. He takes them as needed. He sees Dr. Maurer on 07/14. He can dress himself etc. He is R handed. 2004 L RCR Treatment Goals Patient/Caregiver Goals Goals: fishing, hunting (bow, pistol, rifle), target shooting, fixing things, lifting (dumbells and bands), use arm again (mobility biggest concern) PT-OP-C Subjective Start: 07/04/23 17:57 Freq: Status: Active Protocol: Document 11/05/23 13:39 [facility] (Rec: 11/05/23 13:51 [facility] [id number]) OP-PT Subjective Patient Comments Patient Comments Pt reports noticing his weakness and dec motion when doing housework now PT-OP-F Manual Assessment Start: 07/04/23 17:57 Freq: Status: Active Protocol: Document 07/09/23 12:13 [facility] (Rec: 07/09/23 16:03 [facility] [id number]) Manual Assessments Other Manual Assessments Other Manual Assessments incisions covered w/ steristrips, bruising through brachium to elbow PT-OP-K Range of Motion Start: 07/04/23 17:57 Freq: Status: Active Protocol: Document 10/02/23 13:01 [facility] (Rec: 10/02/23 17:39 [facility] [id number]) Shoulder Goniometric Range of Motion Shoulder Right Active Flexion 99 Extension 60 Abduction 97 External Rotation at 90 degrees 59 Abduction External Rotation at 0 degrees Abduction 55 Internal Rotation Behind Back (text) L3 Comments 90/90 ER-goes out of 90 deg abd as inc; abd slightly towards scaption Right Passive Flexion 145 Abduction 120 External Rotation at 90 degrees 62 Abduction Internal Rotation 53 Comments 90/90 ir PT-OP-M Strength Start: 07/04/23 17:57 Freq: Status: Active Protocol: Document 10/02/23 13:01 [facility] (Rec: 10/02/23 17:39 [facility] [id number]) Shoulder Strength Shoulder Manual Muscle Testing Right Flexion 3+ Fair+ Extension 4 Good Abduction (C5) 3 Fair External Rotation 3+ Fair+ Internal Rotation 4+ Good+ Left Flexion 5 Normal Extension 5 Normal Abduction (C5) 5 Normal External Rotation 5 Normal Internal Rotation 5 Normal Horizontal Abduction 5 Normal PT-OP-Q Treatments Start: 07/04/23 17:57 Freq: Status: Active Protocol: Document 11/05/23 13:39 [facility] (Rec: 11/05/23 13:51 [facility] [id number]) Therapeutic Exercises Supine Exercises foam roll Supine Exercise Name 1. // on flex, abd, HAbd 2. perpendicular on w/ext of tspine Side bilateral Sidelying Exercises IR Sidelying Exercise Name sleeper stretch Side right Reps/Minutes 3x30 sec Standing Exercises walk aways Standing Exercise Name flex then active lifts B Side bilateral Reps/Minutes 30 sec then 10 reps Manual Therapy Treatment Soft Tissue Mobilization R shoulder Comments R lat & delt & post scap w/ sandra pose w/plunger R teres, lats and pecs w/fex and abd Joint Mobilizations thoracic Joint PA T1-3 FM and transverse L1-2 FM; UPA R T3-5 FM rib Comments ribs 1-2 FM caudal AC Joint R clavicle ant w/flex in sandra posea nd supien FM R GH jt Reps/Duration R post, lat gap, inf, distraction FM in neturla and w/ROM PT-OP-R Modalities Start: 07/04/23 17:57 Freq: Status: Active Protocol: Document 08/22/23 10:37 [facility] (Rec: 08/22/23 11:24 [facility] [id number]) Hot Pack/Cold Pack Treatment CP Location R shld Patient Position Supine Treatment Duration (minutes) 10 Patient Tolerance Good PT-OP-T Assessment and Plan Start: 07/04/23 17:57 Freq: Status: Active Protocol: Document 11/05/23 13:39 [facility] (Rec: 11/05/23 13:51 [facility] [id number]) Physical Therapy Assessment Goals quick dash Impairment 54.54 Short Term Goal (STG) Pt will improve quick dash score to no greater than 35 to show improved functional ability. 08/15- 65.9, pt reported he answered in referernce to RUE only this time compared to eval 10/02-much improved 36 STG Duration 11/01 [facility] Goal (LTG) Pt will improve quick dash score to no greater than 20 to show improved functional ability. LTG Duration 12/10 strength Short Term Goal (STG) Pt will be indep w/HEP for strength and ROM per PT based on protocol. 08/15- progressing, ROM HEP added today STG Duration achieved when home; advancing as able Hydrological Technical Officer Goal (LTG) Pt will score at least 4+/5 on all MMT on RUE to show good start to progression of RUE strength to allow return to household activities w/o inc pain. 10/02-improving LTG Duration 4 ROM Short Term Goal (STG) Pt will have full PROM with no more than 2/10 pain 08/15- progressing 10/02 mild pain end ranges slight limit STG Duration 11/01 Hydrological Technical Officer Goal (LTG) Pt will have full AROM in order to allow pt to return overhead activities and dressing w/o inc pain. 10/02-no pain w/dressing imprvoinging LTG Duration 4 Assessment Summary Assessment w/exercises and manual, pt had improved mobility of R shoulder with significant education to pt on importance of doing HEP at home for stretching. Physical Therapy Plan Frequency and Duration Frequency of Treatment 1x/Week Duration of treatment (weeks) 10 Plan of Care Start Date 10/02/23 Plan of Care End Date 12/11/23 Next Visit Focus/Plan Next Note Type Treatment Note Next Visit Plan review exercises from last session; work on strength during session. Manual to improve end range mobility
--- NOTE | 2023-11-12 13:45 | PT.OTN ---
Addendum entered and electronically signed by Joanna Hernandez PTA 11/19/23 15:15: KX modifier. Original Note: Current Diagnoses Unspecified rotator cuff tear or rupture of right shoulder, not specified as traumatic (11/12/23) Strain of other muscles, fascia and tendons at shoulder and upper arm level, right arm, subsequent encounter (11/12/23) Physical Therapy Treatment Note PT-OP-A Visit Information Start: 07/04/23 17:57 Freq: Status: Active Protocol: Document 11/12/23 13:03 [facility] (Rec: 11/12/23 13:50 [facility] [id number]) Out-Patient Physical Therapy Visit Information Visit Information Visit Type Treatment Note Visit Note 01/10 Visit Start Time 13:03 Visit Stop Time 13:45 Visit Number 20 Number of HOLE FILLER Visits 1 Precautions Precautions 07/16/23: s/p R full thickness RTC repair with subacromial decompression. PT-OP-B Current Condition Start: 07/04/23 17:57 Freq: Status: Active Protocol: Document 07/09/23 12:13 [facility] (Rec: 07/09/23 16:03 [facility] [id number]) Current Condition History of Current Condition History of Current Condition Pt was lifting an aluminum boat out in front and heard/ felt it on Apr 03. He had full thickness RCT and had it repaired and subacromial decompression. He had surgery 07/04/23. He reports he took a shower yesterday adn almost paased out. He can't sleep on his back so have been sleeping on his side. Meds have helped w/pain. He has been phasing out of it oxy/tylenol. He takes them as needed. He sees Dr. Maurer on 07/14. He can dress himself etc. He is R handed. 2004 L RCR Treatment Goals Patient/Caregiver Goals Goals: fishing, hunting (bow, pistol, rifle), target shooting, fixing things, lifting (dumbells and bands), use arm again (mobility biggest concern) PT-OP-C Subjective Start: 07/04/23 17:57 Freq: Status: Active Protocol: Document 11/12/23 13:03 [facility] (Rec: 11/12/23 13:50 [facility] [id number]) OP-PT Subjective Patient Comments Patient Comments Pt reports doing his exercises and good effort and hoping will pay off. Did stretches again this am. PT-OP-F Manual Assessment Start: 07/04/23 17:57 Freq: Status: Active Protocol: Document 07/09/23 12:13 [facility] (Rec: 07/09/23 16:03 [facility] [id number]) Manual Assessments Other Manual Assessments Other Manual Assessments incisions covered w/ steristrips, bruising through brachium to elbow PT-OP-K Range of Motion Start: 07/04/23 17:57 Freq: Status: Active Protocol: Document 10/02/23 13:01 [facility] (Rec: 10/02/23 17:39 [facility] [id number]) Shoulder Goniometric Range of Motion Shoulder Right Active Flexion 99 Extension 60 Abduction 97 External Rotation at 90 degrees 59 Abduction External Rotation at 0 degrees Abduction 55 Internal Rotation Behind Back (text) L3 Comments 90/90 ER-goes out of 90 deg abd as inc; abd slightly towards scaption Right Passive Flexion 145 Abduction 120 External Rotation at 90 degrees 62 Abduction Internal Rotation 53 Comments 90/90 ir PT-OP-M Strength Start: 07/04/23 17:57 Freq: Status: Active Protocol: Document 10/02/23 13:01 [facility] (Rec: 10/02/23 17:39 [facility] [id number]) Shoulder Strength Shoulder Manual Muscle Testing Right Flexion 3+ Fair+ Extension 4 Good Abduction (C5) 3 Fair External Rotation 3+ Fair+ Internal Rotation 4+ Good+ Left Flexion 5 Normal Extension 5 Normal Abduction (C5) 5 Normal External Rotation 5 Normal Internal Rotation 5 Normal Horizontal Abduction 5 Normal PT-OP-Q Treatments Start: 07/04/23 17:57 Freq: Status: Active Protocol: Document 11/12/23 13:03 [facility] (Rec: 11/12/23 13:50 [facility] [id number]) Therapeutic Exercises Supine Exercises foam roll Supine Exercise Name 1. FF, Ts, 1/2 X 2. TS ext/ rolling arm cross chest/ROM Side bilateral Resistance TB #2 1/2 X, TB >5# DB Reps/Minutes 2x10 Comments good response, pnfree- less back tension serratus punch Side bilateral Resistance 5# DB Equipment Used over foam roller Reps/Minutes 10 Comments cued no UT, good form Prone Exercises scaption Side right Equipment Used over 65cm tball Reps/Minutes x10 total Comments cued ft contact on wall Habd Side right Resistance 1# DB Equipment Used over 65cm tball Reps/Minutes 15 Comments cued ft contact on wall ext Side right Resistance 1# DB Equipment Used over 65cm tball Reps/Minutes 15 Comments cued ft contact on wall Sidelying Exercises IR Sidelying Exercise Name sleeper stretch Side right Resistance AROM Reps/Minutes 3x30 sec Comments tactile cue pressure through forearm Standing Exercises sleeper stretch Standing Exercise Name trialed in standing Side right Reps/Minutes 2 30 Comments not as effective as stretch Standing Exercise Name pec w/ext corner Side right Reps/Minutes 30 sec x2 Comments various angles walk aways Standing Exercise Name flex then active lifts single lifts Side bilateral Equipment Used bottoms stair rails Reps/Minutes 30 sec then 10 reps Manual Therapy Treatment Soft Tissue Mobilization R shoulder Comments MWM R lat & delt & post scap Sidelying during ABD Joint Mobilizations AC Joint R clavicle ant w/flex and ABD in sidelying R GH jt Reps/Duration R post, inf FM w/ROM ABD, FF R scapulothoracic Comments R /c ABD, FF, HABD PT-OP-R Modalities Start: 07/04/23 17:57 Freq: Status: Active Protocol: Document 08/22/23 10:37 [facility] (Rec: 08/22/23 11:24 [facility] [id number]) Hot Pack/Cold Pack Treatment CP Location R shld Patient Position Supine Treatment Duration (minutes) 10 Patient Tolerance Good PT-OP-T Assessment and Plan Start: 07/04/23 17:57 Freq: Status: Active Protocol: Document 11/12/23 13:03 [facility] (Rec: 11/12/23 13:50 [facility] [id number]) Physical Therapy Assessment Goals quick dash Impairment 54.54 Short Term Goal (STG) Pt will improve quick dash score to no greater than 35 to show improved functional ability. 08/15- 65.9, pt reported he answered in referernce to RUE only this time compared to eval 10/02-much improved 36 STG Duration 11/01 Press Pipe Inspector Goal (LTG) Pt will improve quick dash score to no greater than 20 to show improved functional ability. LTG Duration 12/10 strength Short Term Goal (STG) Pt will be indep w/HEP for strength and ROM per PT based on protocol. 08/15- progressing, ROM HEP added today STG Duration achieved when home; advancing as able Press Pipe Inspector Goal (LTG) Pt will score at least 4+/5 on all MMT on RUE to show good start to progression of RUE strength to allow return to household activities w/o inc pain. 10/02-improving LTG Duration 4 ROM Short Term Goal (STG) Pt will have full PROM with no more than 2/10 pain 08/15- progressing 10/02 mild pain end ranges slight limit STG Duration 11/01 Press Pipe Inspector Goal (LTG) Pt will have full AROM in order to allow pt to return overhead activities and dressing w/o inc pain. 10/02-no pain w/dressing imprvoinging LTG Duration 12/04 Assessment Summary Assessment Pt decreased reported discomfort superior R shld post manual with FM and min cues for humeral ER as needed to [place] range. He was able to tolerate increase resistance to HEP over foam roller and good tolerance to progression prone over tball for caryover home equipment, tactile cues for humeral positioning as needed. Pt reported felt pretty good end tx, no adverse affects and some muscle soreness but not pain. Physical Therapy Plan Frequency and Duration Frequency of Treatment 1x/Week Duration of treatment (weeks) 10 Plan of Care Start Date 10/02/23 Plan of Care End Date 12/11/23 Therapeutic Interventions Therapeutic Interventions Gait Training,Home Exercise Program,Joint Mobilizations, Manual Therapy,Neuromuscular Re-education,Patient/Caregiver Education,Self-Care/Home Management,Soft Tissue Mobilization,Taping, Therapeutic Activities, Therapeutic Exercises Modalities Cold Pack/Ice Massage,Electric Stimulation,Hot Packs, Infrared Therapy,Ultrasound Next Visit Focus/Plan Next Note Type Treatment Note Next Visit Plan REview prone HEP over Tball and foam roller. Trial ROM behind back. POC: Conttinue progress work on strength during session as mauricio. Manual to improve end range mobility
--- NOTE | 2023-11-19 13:47 | PT.OTN ---
Addendum entered and electronically signed by Joanna Hernandez PTA 11/19/23 15:16: KX modifier Original Note: Current Diagnoses Unspecified rotator cuff tear or rupture of right shoulder, not specified as traumatic (11/19/23) Strain of other muscles, fascia and tendons at shoulder and upper arm level, right arm, subsequent encounter (11/19/23) Physical Therapy Treatment Note PT-OP-A Visit Information Start: 07/04/23 17:57 Freq: Status: Active Protocol: Document 11/19/23 13:02 SP (Rec: 11/19/23 13:54 SP [id number]) Out-Patient Physical Therapy Visit Information Visit Information Visit Type Treatment Note Visit Note 12/11 Visit Start Time 13:02 Visit Stop Time 13:47 Visit 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 PT-OP-B Current Condition Start: 07/04/23 17:57 Freq: Status: Active Protocol: Document 07/09/23 12:13 [facility] (Rec: 07/09/23 16:03 [facility] [id number]) Current Condition History of Current Condition History of Current Condition Pt was lifting an aluminum boat out in front and heard/ felt it on Apr 03. He had full thickness RCT and had it repaired and subacromial decompression. He had surgery 07/04/23. He reports he took a shower yesterday adn almost paased out. He can't sleep on his back so have been sleeping on his side. Meds have helped w/pain. He has been phasing out of it oxy/tylenol. He takes them as needed. He sees Dr. Maurer on 07/14. He can dress himself etc. He is R handed. 2004 L RCR Treatment Goals Patient/Caregiver Goals Goals: fishing, hunting (bow, pistol, rifle), target shooting, fixing things, lifting (dumbells and bands), use arm again (mobility biggest concern) PT-OP-C Subjective Start: 07/04/23 17:57 Freq: Status: Active Protocol: Document 11/19/23 13:02 SP (Rec: 11/19/23 13:54 SP [id number]) OP-PT Subjective Patient Comments Patient Comments Pt reports pretry sore after last tx, feels fine coming in today. He was doing pretty well with HEP after last tx then got busy over weekend with yard work prunning bushes , raking and shld felt fine. PT-OP-F Manual Assessment Start: 07/04/23 17:57 Freq: Status: Active Protocol: Document 07/09/23 12:13 [facility] (Rec: 07/09/23 16:03 [facility] [id number]) Manual Assessments Other Manual Assessments Other Manual Assessments incisions covered w/ steristrips, bruising through brachium to elbow PT-OP-K Range of Motion Start: 07/04/23 17:57 Freq: Status: Active Protocol: Document 10/02/23 13:01 [facility] (Rec: 10/02/23 17:39 [facility] [id number]) Shoulder Goniometric Range of Motion Shoulder Right Active Flexion 99 Extension 60 Abduction 97 External Rotation at 90 degrees 59 Abduction External Rotation at 0 degrees Abduction 55 Internal Rotation Behind Back (text) L3 Comments 90/90 ER-goes out of 90 deg abd as inc; abd slightly towards scaption Right Passive Flexion 145 Abduction 120 External Rotation at 90 degrees 62 Abduction Internal Rotation 53 Comments 90/90 ir PT-OP-M Strength Start: 07/04/23 17:57 Freq: Status: Active Protocol: Document 10/02/23 13:01 [facility] (Rec: 10/02/23 17:39 [facility] [id number]) Shoulder Strength Shoulder Manual Muscle Testing Right Flexion 3+ Fair+ Extension 4 Good Abduction (C5) 3 Fair External Rotation 3+ Fair+ Internal Rotation 4+ Good+ Left Flexion 5 Normal Extension 5 Normal Abduction (C5) 5 Normal External Rotation 5 Normal Internal Rotation 5 Normal Horizontal Abduction 5 Normal PT-OP-Q Treatments Start: 07/04/23 17:57 Freq: Status: Active Protocol: Document 11/19/23 13:02 SP (Rec: 11/19/23 13:54 SP [id number]) Therapeutic Exercises Supine Exercises chest press Supine Exercise Name trialed in PT Resistance 10# DB Equipment Used over foam roller Reps/Minutes 2x15 Comments feels fine foam roll Supine Exercise Name 1. FF, Ts, 1/2 X 2. TS ext/ rolling arm cross chest/ROM Side bilateral Resistance 5# DB Reps/Minutes 1. 2x12 each 2. 1 min Comments good response, pnfree- less back tension serratus punch Side bilateral Resistance 5#> 7#>10# DB Equipment Used over foam roller Reps/Minutes 10reps 5#, 12 reps 10# Comments good form Prone Exercises scaption Side right Resistance AROM x10, 2# DB x4 reps before compensation Equipment Used over 65cm tball Reps/Minutes x10 total Comments cued ft contact on wall Habd Side right Resistance 1#>2# DB x15 Equipment Used over 65cm tball Comments cued head neutral ext Side right Resistance 5# DB Equipment Used over 65cm tball Reps/Minutes 15 Comments cued not passed trunk- good head positioning Sidelying Exercises open book Sidelying Exercise Name HEP reviewed Side bilateral Resistance improved ROM with reps Reps/Minutes x10 Comments cued scapular ROM and TS rotation improved with reps Standing Exercises IR stretch Side right Equipment Used towel Reps/Minutes 5 breaths x3 and up back Comments cued level shld, head up- improved across opp pelvis then up AROM measurements Standing Exercise Name L FF & ABD WNL, ER 70 deg Resistance R 152 FF, 140 ABD, ER 77 deg, IR L2 sleeper stretch Standing Exercise Name trialed in standing (does mostly on side home) Side right Reps/Minutes 2 30 Comments cued IR Standing Exercise Name 90/90 Side right Equipment Used orange band Reps/Minutes 15 PT-OP-R Modalities Start: 07/04/23 17:57 Freq: Status: Active Protocol: Document 08/22/23 10:37 [facility] (Rec: 08/22/23 11:24 [facility] [id number]) Hot Pack/Cold Pack Treatment CP Location R shld Patient Position Supine Treatment Duration (minutes) 10 Patient Tolerance Good PT-OP-T Assessment and Plan Start: 07/04/23 17:57 Freq: Status: Active Protocol: Document 11/19/23 13:02 SP (Rec: 11/19/23 13:54 SP [id number]) Physical Therapy Assessment Goals quick dash Impairment 54.54 Short Term Goal (STG) Pt will improve quick dash score to no greater than 35 to show improved functional ability. 08/15- 65.9, pt reported he answered in referernce to RUE only this time compared to eval 10/02-much improved 36 STG Duration 11/01 Skilled Nursing Goal (LTG) Pt will improve quick dash score to no greater than 20 to show improved functional ability. LTG Duration 12/10 strength Short Term Goal (STG) Pt will be indep w/HEP for strength and ROM per PT based on protocol. 08/15- progressing, ROM HEP added today STG Duration achieved when home; advancing as able Bull Fiddle Player Goal (LTG) Pt will score at least 4+/5 on all MMT on RUE to show good start to progression of RUE strength to allow return to household activities w/o inc pain. 10/02-improving LTG Duration 12/04 ROM Short Term Goal (STG) Pt will have full PROM with no more than 2/10 pain 08/15- progressing 10/02 mild pain end ranges slight limit STG Duration 11/01 Skilled Nursing Goal (LTG) Pt will have full AROM in order to allow pt to return overhead activities and dressing w/o inc pain. 10/02-no pain w/dressing imprvoinging 11/19/23: Progressing standing Rshld AROM: R 152 FF, 140 ABD, ER 77 deg, L2, (further with towel support). LTG Duration 12/04 progressing 11/19/23 Assessment Summary Assessment Pt is making gains in AROM noted in standing, see LTG progression. He is progression in GH and scapular strengthening supine over foam roller and prone against gravity with resistance <90 deg ABD, cuing during Ys humeral ER improved AROM and decrease UT recruitment. Pt is pleased with progress making and able to complete more yard activities now prunning, raking, etc. Still not full range withOH motions though. Physical Therapy Plan Frequency and Duration Frequency of Treatment 1x/Week Duration of treatment (weeks) 10 Plan of Care Start Date 10/02/23 Plan of Care End Date 12/11/23 Therapeutic Interventions Therapeutic Interventions Gait Training,Home Exercise Program,Joint Mobilizations, Manual Therapy,Neuromuscular Re-education,Patient/Caregiver Education,Self-Care/Home Management,Soft Tissue Mobilization,Taping, Therapeutic Activities, Therapeutic Exercises Modalities Cold Pack/Ice Massage,Electric Stimulation,Hot Packs, Infrared Therapy,Ultrasound Next Visit Focus/Plan Next Note Type Treatment Note Next Visit Plan REview prone HEP over Tball and foam roller. COntinue AA- AROM behind back. Next try Ys off wall. POC: Conttinue progress work on strength during session as mauricio. Manual to improve end range mobility
--- NOTE | 2023-11-26 15:05 | PT.OTN ---
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 PT-OP-B Current Condition Start: 07/04/23 17:57 Freq: Status: Active Protocol: Document 07/09/23 12:13 [facility] (Rec: 07/09/23 16:03 [facility] [id number]) Current Condition History of Current Condition History of Current Condition Pt was lifting an aluminum boat out in front and heard/ felt it on Apr 03. He had full thickness RCT and had it repaired and subacromial decompression. He had surgery 07/04/23. He reports he took a shower yesterday adn almost paased out. He can't sleep on his back so have been sleeping on his side. Meds have helped w/pain. He has been phasing out of it oxy/tylenol. He takes them as needed. He sees Dr. Maurer on 07/14. He can dress himself etc. He is R handed. 2004 L RCR Treatment Goals Patient/Caregiver Goals Goals: fishing, hunting (bow, pistol, rifle), target shooting, fixing things, lifting (dumbells and bands), use arm again (mobility biggest concern) PT-OP-C Subjective Start: 07/04/23 17:57 Freq: Status: Active Protocol: Document 11/19/23 13:02 SP (Rec: 11/19/23 13:54 SP [id number]) OP-PT Subjective Patient Comments Patient Comments Pt reports pretry sore after last tx, feels fine coming in today. He was doing pretty well with HEP after last tx then got busy over weekend with yard work prunning bushes , raking and shld felt fine. PT-OP-F Manual Assessment Start: 07/04/23 17:57 Freq: Status: Active Protocol: Document 07/09/23 12:13 [facility] (Rec: 07/09/23 16:03 [facility] [id number]) Manual Assessments Other Manual Assessments Other Manual Assessments incisions covered w/ steristrips, bruising through brachium to elbow PT-OP-K Range of Motion Start: 07/04/23 17:57 Freq: Status: Active Protocol: Document 11/26/23 13:13 [facility] (Rec: 11/26/23 15:05 [facility] [id number]) Shoulder Goniometric Range of Motion Shoulder Right Active Flexion 140 Extension 64 Abduction 139 External Rotation at 90 degrees 66 Abduction External Rotation at 0 degrees Abduction 58 Internal Rotation Behind Back (text) T12 Comments 90/90 ER-goes out of 90 deg abd as inc; abd slightly towards scaption PT-OP-M Strength Start: 07/04/23 17:57 Freq: Status: Active Protocol: Document 11/26/23 13:13 [facility] (Rec: 11/26/23 15:05 [facility] [id number]) Shoulder Strength Shoulder Manual Muscle Testing Right Flexion 4- Good- Extension 5 Normal Abduction (C5) 4- Good- Adduction 5 Normal External Rotation 4- Good- Internal Rotation 5 Normal Horizontal Abduction 5 Normal Horizontal Adduction 5 Normal Left Flexion 5 Normal Extension 5 Normal Abduction (C5) 5 Normal External Rotation 5 Normal Internal Rotation 5 Normal Horizontal Abduction 5 Normal PT-OP-Q Treatments Start: 07/04/23 17:57 Freq: Status: Active Protocol: Document 11/26/23 13:13 [facility] (Rec: 11/26/23 15:05 [facility] [id number]) Therapeutic Exercises Supine Exercises foam roll Supine Exercise Name 1. FF, Ts, snow angelX 2. TS ext/rolling arm over head Side bilateral Resistance 5# DB w/FF and Ts Reps/Minutes 1. 6x20 sec ea2. 3 min Comments good response, pnfree- less back tension Other Exercises AROM Other Exercise Name shoulder into all planes Side right isometrics Other Exercise Name MMT Side right Manual Therapy Treatment Soft Tissue Mobilization R shoulder Mobilization Type Rolling,Sustained Pressure Comments R pec w/overhead activity R scap/neck Body Location R lat & teres Mobilization Type Instrument Assisted,Rolling, Sustained Pressure Intensity/Depth Moderate Comments plunger on lat w/fwd reach; flex for all manual Joint Mobilizations rib Comments external torsion R rib 5 FM SC Joint R inf FM AC Joint R clavicle ant w/flex and ABD in sidelying R GH jt Comments R post w/IR FM and Habd FM; inf w/abd and flex fM PT-OP-R Modalities Start: 07/04/23 17:57 Freq: Status: Active Protocol: Document 08/22/23 10:37 [facility] (Rec: 08/22/23 11:24 [facility] [id number]) Hot Pack/Cold Pack Treatment CP Location R shld Patient Position Supine Treatment Duration (minutes) 10 Patient Tolerance Good PT-OP-T Assessment and Plan Start: 07/04/23 17:57 Freq: Status: Active Protocol: Document 11/26/23 13:13 [facility] (Rec: 11/26/23 15:05 [facility] [id number]) Physical Therapy Assessment Goals quick dash Impairment 54.54 Short Term Goal (STG) Pt will improve quick dash score to no greater than 35 to show improved functional ability. 08/15- 65.9, pt reported he answered in referernce to RUE only this time compared to eval 10/02-much improved 36 STG Duration achieved to 29 11/25 Beater Out Goal (LTG) Pt will improve quick dash score to no greater than 10 to show improved functional ability. LTG Duration 01/20 strength Short Term Goal (STG) Pt will be indep w/HEP for strength and ROM per PT based on protocol. 08/15- progressing, ROM HEP added today STG Duration achieved when home; advancing as able Beater Out Goal (LTG) Pt will score at least 4+/5 on all MMT on RUE to show good start to progression of RUE strength to allow return to household activities w/o inc pain. 10/02-improving 11/25-improving LTG Duration 20 ROM Short Term Goal (STG) Pt will have full PROM with no more than 2/10 pain 08/15- progressing 10/02 mild pain end ranges slight limit STG Duration no pain mild tension Beater Out Goal (LTG) Pt will have full AROM in order to allow pt to return overhead activities and dressing w/o inc pain. 10/02-no pain w/dressing imprvoinging 11/19/23: Progressing standing Rshld AROM: R 152 FF, 140 ABD, ER 77 deg, L2, (further with towel support). 11/25-much improved LTG Duration 01/20 Assessment Summary Assessment Pt has made good progress w/PT and is demonstrating much improved strength and enjoying strengthening exercises. He does still have restrictions w /ROM that requires encouragement to do his stretches exercises. Cont PT to focus on full overhead ROM and strength Physical Therapy Plan Frequency and Duration Frequency of Treatment 1x/Week Duration of treatment (weeks) 8 Plan of Care Start Date 11/26/23 Plan of Care End Date 01/21/24 Next Visit Focus/Plan Next Note Type Treatment Note Next Visit Plan Manual for end range mobility; work on 90/90 rotations
--- NOTE | 2023-11-26 15:05 | PT.OPPOC ---
Physical, Occupational & Speech Therapy At [facility] Current Diagnoses Unspecified rotator cuff tear or rupture of right shoulder, not specified as traumatic (11/26/23) Strain of other muscles, fascia and tendons at shoulder and upper arm level, right arm, subsequent encounter (11/26/23) Visit Care Team Role Provider Type Juan Carlos Gonzalez MD Family Provider Physician Primary Care Provider Specialty: Family Practice Address: [address] [place] [address], [address], [address] Email: [email or web address] Raoul Maurer MD Attending Provider Physician Referring Provider Specialty: Orthopedics Orthopedic Surgery Address: [address] [place] [address], [id number] Email: [email or web address] Plan Of Care PT-OP-T Assessment and Plan Start: 07/04/23 17:57 Freq: Status: Active Protocol: Document 11/26/23 13:13 [facility] (Rec: 11/26/23 15:05 [facility] [id number]) Physical Therapy Assessment Goals quick dash Impairment 54.54 Short Term Goal (STG) Pt will improve quick dash score to no greater than 35 to show improved functional ability. 08/15- 65.9, pt reported he answered in referernce to RUE only this time compared to eval 10/02-much improved 36 STG Duration achieved to 29 11/25 Photograph Inspector Goal (LTG) Pt will improve quick dash score to no greater than 10 to show improved functional ability. LTG Duration 01/20 strength Short Term Goal (STG) Pt will be indep w/HEP for strength and ROM per PT based on protocol. 08/15- progressing, ROM HEP added today STG Duration achieved when home; advancing as able Jail Goal (LTG) Pt will score at least 4+/5 on all MMT on RUE to show good start to progression of RUE strength to allow return to household activities w/o inc pain. 10/02-improving 11/25-improving LTG Duration 5/20 ROM Short Term Goal (STG) Pt will have full PROM with no more than 2/10 pain 08/15- progressing 10/02 mild pain end ranges slight limit STG Duration no pain mild tension Jail Goal (LTG) Pt will have full AROM in order to allow pt to return overhead activities and dressing w/o inc pain. 10/02-no pain w/dressing imprvoinging 11/19/23: Progressing standing Rshld AROM: R 152 FF, 140 ABD, ER 77 deg, L2, (further with towel support). 11/25-much improved LTG Duration 01/20 Assessment Summary Assessment Pt has made good progress w/PT and is demonstrating much improved strength and enjoying strengthening exercises. He does still have restrictions w /ROM that requires encouragement to do his stretches exercises. Cont PT to focus on full overhead ROM and strength Physical Therapy Plan Frequency and Duration Frequency of Treatment 1x/Week Duration of treatment (weeks) 8 Plan of Care Start Date 11/26/23 Plan of Care End Date 01/21/24 Next Visit Focus/Plan Next Note Type Treatment Note Next Visit Plan Manual for end range mobility; work on 90/90 rotations Plan of Care Dates Plan of Care Start Date 11/26/23 Plan of Care End Date 01/21/24 Electronically Signed by: Darcy Sorensen, PT 11/26/23 [id number] If you are in agreement with this Plan of Care, please return a signed and dated copy. I have reviewed this Plan of Care and certify that the skilled therapy services above are required to meet the patient?s needs. Physician Signature Date Printed Name and Credentials Clinical Instructor Signature Printed Name and Credentials
--- NOTE | 2023-12-04 14:33 | PT.OTN ---
Current Diagnoses Unspecified rotator cuff tear or rupture of right shoulder, not specified as traumatic (12/04/23) Strain of other muscles, fascia and tendons at shoulder and upper arm level, right arm, subsequent encounter (12/04/23) Physical Therapy Treatment Note PT-OP-A Visit Information Start: 07/04/23 17:57 Freq: Status: Active Protocol: Document 12/04/23 13:50 SP (Rec: 12/04/23 14:37 SP [id number]) Out-Patient Physical Therapy Visit Information Visit Information Visit Type Treatment Note Visit Note 02/10 Visit Start Time 13:50 Visit Stop Time 14:33 Visit Number 23 Number of AIR SUPPORT CONTROL OFFICER Visits 1 Precautions Precautions 07/16/23: s/p R full thickness RTC repair with subacromial decompression. PT-OP-B Current Condition Start: 07/04/23 17:57 Freq: Status: Active Protocol: Document 07/09/23 12:13 [facility] (Rec: 07/09/23 16:03 [facility] [id number]) Current Condition History of Current Condition History of Current Condition Pt was lifting an aluminum boat out in front and heard/ felt it on Apr 03. He had full thickness RCT and had it repaired and subacromial decompression. He had surgery 07/04/23. He reports he took a shower yesterday adn almost paased out. He can't sleep on his back so have been sleeping on his side. Meds have helped w/pain. He has been phasing out of it oxy/tylenol. He takes them as needed. He sees Dr. Maurer on 07/14. He can dress himself etc. He is R handed. 2004 L RCR Treatment Goals Patient/Caregiver Goals Goals: fishing, hunting (bow, pistol, rifle), target shooting, fixing things, lifting (dumbells and bands), use arm again (mobility biggest concern) PT-OP-C Subjective Start: 07/04/23 17:57 Freq: Status: Active Protocol: Document 12/04/23 13:50 SP (Rec: 12/04/23 14:37 SP [id number]) OP-PT Subjective Patient Comments Patient Comments Pt reports didn't seem make much gains in ROM last week, sore upon arrival. PT-OP-F Manual Assessment Start: 07/04/23 17:57 Freq: Status: Active Protocol: Document 07/09/23 12:13 [facility] (Rec: 07/09/23 16:03 [facility] [id number]) Manual Assessments Other Manual Assessments Other Manual Assessments incisions covered w/ steristrips, bruising through brachium to elbow PT-OP-K Range of Motion Start: 07/04/23 17:57 Freq: Status: Active Protocol: Document 11/26/23 13:13 [facility] (Rec: 11/26/23 15:05 [facility] [id number]) Shoulder Goniometric Range of Motion Shoulder Right Active Flexion 140 Extension 64 Abduction 139 External Rotation at 90 degrees 66 Abduction External Rotation at 0 degrees Abduction 58 Internal Rotation Behind Back (text) T12 Comments 90/90 ER-goes out of 90 deg abd as inc; abd slightly towards scaption PT-OP-M Strength Start: 07/04/23 17:57 Freq: Status: Active Protocol: Document 11/26/23 13:13 [facility] (Rec: 11/26/23 15:05 [facility] [id number]) Shoulder Strength Shoulder Manual Muscle Testing Right Flexion 4- Good- Extension 5 Normal Abduction (C5) 4- Good- Adduction 5 Normal External Rotation 4- Good- Internal Rotation 5 Normal Horizontal Abduction 5 Normal Horizontal Adduction 5 Normal Left Flexion 5 Normal Extension 5 Normal Abduction (C5) 5 Normal External Rotation 5 Normal Internal Rotation 5 Normal Horizontal Abduction 5 Normal PT-OP-Q Treatments Start: 07/04/23 17:57 Freq: Status: Active Protocol: Document 12/04/23 13:50 SP (Rec: 12/04/23 14:37 SP [id number]) Therapeutic Exercises Supine Exercises ABD ER Supine Exercise Name trialed in PT: ABD 90, & 120 deg /c ER Side right Resistance 2> 3# DB Reps/Minutes 2x10 Comments gravity & resistance assist into ROM, painfree gained little range Sidelying Exercises sleeper stetch Sidelying Exercise Name trialed in PT: 60 & 90 deg Side right Reps/Minutes 2x 15 sec Comments cued positioning and Sitting Exercises ecccentric FF, Scaption Sitting Exercise Name trialed for support into AAROM Resistance Tb 3>6 Equipment Used cues for no UT recruitment Reps/Minutes 8 reps each Comments Manual caudal 1st rib, scap depression into ROM OH- Manual Therapy Treatment Soft Tissue Mobilization R shoulder Body Location Teres, Lat, Distal infrasp, Mobilization Type Rolling,Sustained Pressure Comments /c PROM and FM FF, punching motion, ABD, ER, add/IR&ER Joint Mobilizations rib Joint R 1st Direction caudal Grade II Body Position seated Comments FF, scaption R GH jt Comments R post w/IR FM and Habd FM; inf w/abd and flex fM introduced self seated arm supported on table, self inferior glide prox humeral PT-OP-R Modalities Start: 07/04/23 17:57 Freq: Status: Active Protocol: Document 08/22/23 10:37 [facility] (Rec: 08/22/23 11:24 LR [id number]) Hot Pack/Cold Pack Treatment CP Location R shld Patient Position Supine Treatment Duration (minutes) 10 Patient Tolerance Good PT-OP-T Assessment and Plan Start: 07/04/23 17:57 Freq: Status: Active Protocol: Document 12/04/23 13:50 SP (Rec: 12/04/23 14:37 SP [id number]) Physical Therapy Assessment Goals quick dash Impairment 54.54 Short Term Goal (STG) Pt will improve quick dash score to no greater than 35 to show improved functional ability. 08/15- 65.9, pt reported he answered in referernce to RUE only this time compared to eval 10/02-much improved 36 STG Duration achieved to 29 11/25 Beam Machine Operator Goal (LTG) Pt will improve quick dash score to no greater than 10 to show improved functional ability. LTG Duration 01/20 strength Short Term Goal (STG) Pt will be indep w/HEP for strength and ROM per PT based on protocol. 08/15- progressing, ROM HEP added today STG Duration achieved when home; advancing as able Care Home Goal (LTG) Pt will score at least 4+/5 on all MMT on RUE to show good start to progression of RUE strength to allow return to household activities w/o inc pain. 10/02-improving 11/25-improving LTG Duration 20 ROM Short Term Goal (STG) Pt will have full PROM with no more than 2/10 pain 08/15- progressing 10/02 mild pain end ranges slight limit STG Duration no pain mild tension Care Home Goal (LTG) Pt will have full AROM in order to allow pt to return overhead activities and dressing w/o inc pain. 10/02-no pain w/dressing imprvoinging 11/19/23: Progressing standing Rshld AROM: R 152 FF, 140 ABD, ER 77 deg, L2, (further with towel support). 11/25-much improved LTG Duration 01/20 Assessment Summary Assessment Pt good tolerance to abd/er against gravity and resistance and sleeper stretch IR with decrease tightness posterior R GH Jt reported. Pt continues limit ROM, slight improvement mobility post manual and ther ex, cues for no UT recruitment awareness. Physical Therapy Plan Frequency and Duration Frequency of Treatment 1x/Week Duration of treatment (weeks) 8 Plan of Care Start Date 11/26/23 Plan of Care End Date 01/21/24 Therapeutic Interventions Therapeutic Interventions Gait Training,Home Exercise Program,Joint Mobilizations, Manual Therapy,Neuromuscular Re-education,Patient/Caregiver Education,Self-Care/Home Management,Soft Tissue Mobilization,Taping, Therapeutic Activities, Therapeutic Exercises Modalities Cold Pack/Ice Massage,Electric Stimulation,Hot Packs, Infrared Therapy,Ultrasound Next Visit Focus/Plan Next Note Type Treatment Note Next Visit Plan Assess response to abd/ER /c gravity assist and DB. POC: Manual for end range mobility; work on 90/90 rotations
--- NOTE | 2023-12-13 11:57 | PT.OTN ---
Current Diagnoses Unspecified rotator cuff tear or rupture of right shoulder, not specified as traumatic (12/13/23) Strain of other muscles, fascia and tendons at shoulder and upper arm level, right arm, subsequent encounter (12/13/23) Physical Therapy Treatment Note PT-OP-A Visit Information Start: 07/04/23 17:57 Freq: Status: Active Protocol: Document 12/13/23 09:52 [facility] (Rec: 12/13/23 11:56 [facility] [id number]) Out-Patient Physical Therapy Visit Information Visit Information Visit Type Treatment Note Visit Note 03/12 Visit Start Time 09:50 Visit Stop Time 10:30 Visit Number [address] TECH Visits 0 PT-OP-B Current Condition Start: 07/04/23 17:57 Freq: Status: Active Protocol: Document 07/09/23 12:13 [facility] (Rec: 07/09/23 16:03 [facility] [id number]) Current Condition History of Current Condition History of Current Condition Pt was lifting an aluminum boat out in front and heard/ felt it on Apr 03. He had full thickness RCT and had it repaired and subacromial decompression. He had surgery 07/04/23. He reports he took a shower yesterday adn almost paased out. He can't sleep on his back so have been sleeping on his side. Meds have helped w/pain. He has been phasing out of it oxy/tylenol. He takes them as needed. He sees Dr. Maurer on 07/14. He can dress himself etc. He is R handed. 2004 L RCR Treatment Goals Patient/Caregiver Goals Goals: fishing, hunting (bow, pistol, rifle), target shooting, fixing things, lifting (dumbells and bands), use arm again (mobility biggest concern) PT-OP-C Subjective Start: 07/04/23 17:57 Freq: Status: Active Protocol: Document 12/13/23 09:52 [facility] (Rec: 12/13/23 11:56 [facility] [id number]) OP-PT Subjective Patient Comments Patient Comments Pt reports he is sometimes doing exercises. Notes he is stretching at doorway and doing overhead presses. States overhead strength still difficult and IR behind back still tight PT-OP-F Manual Assessment Start: 07/04/23 17:57 Freq: Status: Active Protocol: Document 07/09/23 12:13 [facility] (Rec: 07/09/23 16:03 [facility] [id number]) Manual Assessments Other Manual Assessments Other Manual Assessments incisions covered w/ steristrips, bruising through brachium to elbow PT-OP-K Range of Motion Start: 07/04/23 17:57 Freq: Status: Active Protocol: Document 11/26/23 13:13 [facility] (Rec: 11/26/23 15:05 [facility] [id number]) Shoulder Goniometric Range of Motion Shoulder Right Active Flexion 140 Extension 64 Abduction 139 External Rotation at 90 degrees 66 Abduction External Rotation at 0 degrees Abduction 58 Internal Rotation Behind Back (text) T12 Comments 90/90 ER-goes out of 90 deg abd as inc; abd slightly towards scaption PT-OP-M Strength Start: 07/04/23 17:57 Freq: Status: Active Protocol: Document 11/26/23 13:13 [facility] (Rec: 11/26/23 15:05 [facility] [id number]) Shoulder Strength Shoulder Manual Muscle Testing Right Flexion 4- Good- Extension 5 Normal Abduction (C5) 4- Good- Adduction 5 Normal External Rotation 4- Good- Internal Rotation 5 Normal Horizontal Abduction 5 Normal Horizontal Adduction 5 Normal Left Flexion 5 Normal Extension 5 Normal Abduction (C5) 5 Normal External Rotation 5 Normal Internal Rotation 5 Normal Horizontal Abduction 5 Normal PT-OP-Q Treatments Start: 07/04/23 17:57 Freq: Status: Active Protocol: Document 12/13/23 09:52 [facility] (Rec: 12/13/23 11:56 [facility] [id number]) Therapeutic Exercises Supine Exercises foam roll Supine Exercise Name FF Side bilateral Resistance 3# Reps/Minutes 15 sec x4 Sidelying Exercises IR Sidelying Exercise Name sleeper stretch Side right Reps/Minutes 30 sec Comments tactile cue pressure through forearm Standing Exercises stretch Standing Exercise Name 90/90 pec stretch Side bilateral Reps/Minutes 1 min wall walk Standing Exercise Name doorway stretch w/flex Side right Reps/Minutes 6 Other Exercises stretch Other Exercise Name sandra pose Side bilateral Reps/Minutes 5 ea Comments w/lifts in: ER, neutral, IR Manual Therapy Treatment Soft Tissue Mobilization R shoulder Body Location Teres, Lat, RC, rhomboids Mobilization Type Rolling,Sustained Pressure Comments w.flex and abd Joint Mobilizations rib Comments PA rib 5 in sandra pose SC Joint R inf FM AC Joint R clavicle ant w/flex and ABD in sidelying R GH jt Comments R inf glide w/flex PT-OP-R Modalities Start: 07/04/23 17:57 Freq: Status: Active Protocol: Document 08/22/23 10:37 [facility] (Rec: 08/22/23 11:24 [facility] [id number]) Hot Pack/Cold Pack Treatment CP Location R shld Patient Position Supine Treatment Duration (minutes) 10 Patient Tolerance Good PT-OP-T Assessment and Plan Start: 07/04/23 17:57 Freq: Status: Active Protocol: Document 12/13/23 09:52 [facility] (Rec: 12/13/23 11:56 [facility] [id number]) Physical Therapy Assessment Goals quick dash Impairment 54.54 Short Term Goal (STG) Pt will improve quick dash score to no greater than 35 to show improved functional ability. 08/15- 65.9, pt reported he answered in referernce to RUE only this time compared to eval 10/02-much improved 36 STG Duration achieved to 29 11/25 Washcoat Wiper Goal (LTG) Pt will improve quick dash score to no greater than 10 to show improved functional ability. LTG Duration 01/20 strength Short Term Goal (STG) Pt will be indep w/HEP for strength and ROM per PT based on protocol. 08/15- progressing, ROM HEP added today STG Duration achieved when home; advancing as able Senior Living Goal (LTG) Pt will score at least 4+/5 on all MMT on RUE to show good start to progression of RUE strength to allow return to household activities w/o inc pain. 10/02-improving 11/25-improving LTG Duration 01/20 ROM Short Term Goal (STG) Pt will have full PROM with no more than 2/10 pain 08/15- progressing 10/02 mild pain end ranges slight limit STG Duration no pain mild tension Washcoat Wiper Goal (LTG) Pt will have full AROM in order to allow pt to return overhead activities and dressing w/o inc pain. 10/02-no pain w/dressing imprvoinging 11/19/23: Progressing standing Rshld AROM: R 152 FF, 140 ABD, ER 77 deg, L2, (further with towel support). 11/25-much improved LTG Duration 01/20 Assessment Summary Assessment Verbal review of importance of exercises and compliance and importance of end range stretching and working on activating in that end range. He did improve w/ROM after manual care today. Physical Therapy Plan Frequency and Duration Frequency of Treatment 1x/Week Duration of treatment (weeks) 8 Plan of Care Start Date 11/26/23 Plan of Care End Date 01/21/24 Next Visit Focus/Plan Next Note Type Treatment Note Next Visit Plan cont to wrok on ER strength & abd strength; end range mobility and strength
--- NOTE | 2023-12-21 15:20 | PT.OTN ---
Current Diagnoses Unspecified rotator cuff tear or rupture of right shoulder, not specified as traumatic (12/21/23) Strain of other muscles, fascia and tendons at shoulder and upper arm level, right arm, subsequent encounter (12/21/23) Physical Therapy Treatment Note PT-OP-A Visit Information Start: 07/04/23 17:57 Freq: Status: Active Protocol: Document 12/21/23 14:44 SP (Rec: 12/21/23 15:41 SP [id number]) Out-Patient Physical Therapy Visit Information Visit Information Visit Type Treatment Note Visit Note 04/12 Visit Start Time 14:40 Visit Stop Time 15:20 Visit Number 25 Number of CONTROL ANALYST Visits 1 Precautions Precautions 07/16/23: s/p R full thickness RTC repair with subacromial decompression. PT-OP-B Current Condition Start: 07/04/23 17:57 Freq: Status: Active Protocol: Document 07/09/23 12:13 [facility] (Rec: 07/09/23 16:03 [facility] [id number]) Current Condition History of Current Condition History of Current Condition Pt was lifting an aluminum boat out in front and heard/ felt it on Apr 03. He had full thickness RCT and had it repaired and subacromial decompression. He had surgery 07/04/23. He reports he took a shower yesterday adn almost paased out. He can't sleep on his back so have been sleeping on his side. Meds have helped w/pain. He has been phasing out of it oxy/tylenol. He takes them as needed. He sees Dr. Maurer on 07/14. He can dress himself etc. He is R handed. 2004 L RCR Treatment Goals Patient/Caregiver Goals Goals: fishing, hunting (bow, pistol, rifle), target shooting, fixing things, lifting (dumbells and bands), use arm again (mobility biggest concern) PT-OP-C Subjective Start: 07/04/23 17:57 Freq: Status: Active Protocol: Document 12/21/23 14:44 SP (Rec: 12/21/23 15:41 SP [id number]) OP-PT Subjective Patient Comments Patient Comments Pt reports doing well. Compliant with HEP. Forgetting to perform sleeper stretch home, want to review today form. PT-OP-F Manual Assessment Start: 07/04/23 17:57 Freq: Status: Active Protocol: Document 07/09/23 12:13 [facility] (Rec: 07/09/23 16:03 [facility] [id number]) Manual Assessments Other Manual Assessments Other Manual Assessments incisions covered w/ steristrips, bruising through brachium to elbow PT-OP-K Range of Motion Start: 07/04/23 17:57 Freq: Status: Active Protocol: Document 11/26/23 13:13 [facility] (Rec: 11/26/23 15:05 [facility] [id number]) Shoulder Goniometric Range of Motion Shoulder Right Active Flexion 140 Extension 64 Abduction 139 External Rotation at 90 degrees 66 Abduction External Rotation at 0 degrees Abduction 58 Internal Rotation Behind Back (text) T12 Comments 90/90 ER-goes out of 90 deg abd as inc; abd slightly towards scaption PT-OP-M Strength Start: 07/04/23 17:57 Freq: Status: Active Protocol: Document 11/26/23 13:13 [facility] (Rec: 11/26/23 15:05 [facility] [id number]) Shoulder Strength Shoulder Manual Muscle Testing Right Flexion 4- Good- Extension 5 Normal Abduction (C5) 4- Good- Adduction 5 Normal External Rotation 4- Good- Internal Rotation 5 Normal Horizontal Abduction 5 Normal Horizontal Adduction 5 Normal Left Flexion 5 Normal Extension 5 Normal Abduction (C5) 5 Normal External Rotation 5 Normal Internal Rotation 5 Normal Horizontal Abduction 5 Normal PT-OP-Q Treatments Start: 07/04/23 17:57 Freq: Status: Active Protocol: Document 12/21/23 14:44 SP (Rec: 12/21/23 15:41 SP [id number]) Therapeutic Exercises Supine Exercises foam roll Supine Exercise Name FF, HABD>progress into Scaption Resistance 3#DB bilateral Equipment Used over foam roller Reps/Minutes 15 sec x4 each position Comments cued elbow ext Sidelying Exercises sleeper stetch Sidelying Exercise Name HEP reviewed: 60 & 90 deg Side right Equipment Used use LUE help R UE range Reps/Minutes 3x 30sec Comments cued positioning, ed goal not touch table Standing Exercises tricep ext Standing Exercise Name trialed in PT: 1. bent over elbow ext 2. OH ext Side right Resistance 7# DB Reps/Minutes 8 reps each Comments 1. rhomboid/elbow side/ext mid /distal fac 2. anel:tall/OH/ rhomboid/ext Manual Therapy Treatment Soft Tissue Mobilization R arm Body Location R bicep, brachialis, brachioradialis Mobilization Type Rolling,Sustained Pressure, Other Intensity/Depth Moderate Body Position Hooklying Comments MWM /c elbow flex/ext, wrist ext/flex R shoulder Body Location distal pec, prox Teres, distal Lat, prox SA, Mobilization Type Rolling,Sustained Pressure Intensity/Depth Moderate Body Position Hooklying Comments table and over foam roller: MWM /c flex & abd Joint Mobilizations R GH jt Joint R Grade III Comments -inf glide w/flex -posterior glide PROM punching motion & AROM IR/ER PT-OP-R Modalities Start: 07/04/23 17:57 Freq: Status: Active Protocol: Document 08/22/23 10:37 [facility] (Rec: 08/22/23 11:24 [facility] [id number]) Hot Pack/Cold Pack Treatment CP Location R shld Patient Position Supine Treatment Duration (minutes) 10 Patient Tolerance Good PT-OP-T Assessment and Plan Start: 07/04/23 17:57 Freq: Status: Active Protocol: Document 12/21/23 14:44 SP (Rec: 12/21/23 15:41 SP [id number]) Physical Therapy Assessment Goals quick dash Impairment 54.54 Short Term Goal (STG) Pt will improve quick dash score to no greater than 35 to show improved functional ability. 08/15- 65.9, pt reported he answered in referernce to RUE only this time compared to eval 10/02-much improved 36 STG Duration achieved to 29 11/25 Mcfp Goal (LTG) Pt will improve quick dash score to no greater than 10 to show improved functional ability. LTG Duration 01/20 strength Short Term Goal (STG) Pt will be indep w/HEP for strength and ROM per PT based on protocol. 08/15- progressing, ROM HEP added today STG Duration achieved when home; advancing as able Relocation Commissioner Goal (LTG) Pt will score at least 4+/5 on all MMT on RUE to show good start to progression of RUE strength to allow return to household activities w/o inc pain. 10/02-improving 11/25-improving LTG Duration 20 ROM Short Term Goal (STG) Pt will have full PROM with no more than 2/10 pain 08/15- progressing 10/02 mild pain end ranges slight limit STG Duration no pain mild tension Mcfp Goal (LTG) Pt will have full AROM in order to allow pt to return overhead activities and dressing w/o inc pain. 10/02-no pain w/dressing imprvoinging 11/19/23: Progressing standing Rshld AROM: R 152 FF, 140 ABD, ER 77 deg, L2, (further with towel support). 11/25-much improved LTG Duration 01/20 Assessment Summary Assessment Improved UpRot R scap post manual, cued for rhomboid scap stab and elbow ext into that end range OH over foam roller, reported decreased anterior shld and prox bicep tension. Ed continue sleeper stretch for carryover tightness reduction and support for OH ROM. Physical Therapy Plan Frequency and Duration Frequency of Treatment 1x/Week Duration of treatment (weeks) 8 Plan of Care Start Date 11/26/23 Plan of Care End Date 01/21/24 Therapeutic Interventions Therapeutic Interventions Gait Training,Home Exercise Program,Joint Mobilizations, Manual Therapy,Neuromuscular Re-education,Patient/Caregiver Education,Self-Care/Home Management,Soft Tissue Mobilization,Taping, Therapeutic Activities, Therapeutic Exercises Modalities Cold Pack/Ice Massage,Electric Stimulation,Hot Packs, Infrared Therapy,Ultrasound Next Visit Focus/Plan Next Note Type Treatment Note Next Visit Plan Assess IR stretch, elbow ext into FF & scaption ROM. POC: cont to work on ER strength & abd strength; end range mobility and strength
--- NOTE | 2023-12-26 18:04 | PT.OTN ---
Current Diagnoses Unspecified rotator cuff tear or rupture of right shoulder, not specified as traumatic (12/26/23) Strain of other muscles, fascia and tendons at shoulder and upper arm level, right arm, subsequent encounter (12/26/23) Physical Therapy Treatment Note PT-OP-A Visit Information Start: 07/04/23 17:57 Freq: Status: Active Protocol: Document 12/26/23 15:23 [facility] (Rec: 12/26/23 18:04 [facility] [id number]) Out-Patient Physical Therapy Visit Information Visit Information Visit Type Progress Note Visit Note 09/12 Visit Start Time 15:22 Visit Stop Time 16:00 Visit Number 26 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 He had full thickness RCT and had it repaired and subacromial decompression. He had surgery 07/04/23. He reports he took a shower yesterday adn almost paased out. He can't sleep on his back so have been sleeping on his side. Meds have helped w/pain. He has been phasing out of it oxy/tylenol. He takes them as needed. He sees Dr. Maurer on 07/14. He can dress himself etc. He is R handed. 2004 L RCR Treatment Goals Patient/Caregiver Goals Goals: fishing, hunting (bow, pistol, rifle), target shooting, fixing things, lifting (dumbells and bands), use arm again (mobility biggest concern) PT-OP-C Subjective Start: 07/04/23 17:57 Freq: Status: Active Protocol: Document 12/26/23 15:23 [facility] (Rec: 12/26/23 18:04 [facility] [id number]) OP-PT Subjective Patient Comments Patient Comments Doing exercises here and there . Sees next week PT-OP-F Manual Assessment Start: 07/04/23 17:57 Freq: Status: Active Protocol: Document 07/09/23 12:13 [facility] (Rec: 07/09/23 16:03 [facility] [id number]) Manual Assessments Other Manual Assessments Other Manual Assessments incisions covered w/ steristrips, bruising through brachium to elbow PT-OP-K Range of Motion Start: 07/04/23 17:57 Freq: Status: Active Protocol: Document 12/26/23 15:23 [facility] (Rec: 12/26/23 18:04 [facility] [id number]) Shoulder Goniometric Range of Motion Shoulder Right Active Flexion 142 Extension 63 Abduction 146 External Rotation at 90 degrees 88 Abduction External Rotation at 0 degrees Abduction 60 Internal Rotation Behind Back (text) T12 Comments abd slightly towards scaption PT-OP-M Strength Start: 07/04/23 17:57 Freq: Status: Active Protocol: Document 12/26/23 15:23 [facility] (Rec: 12/26/23 18:04 [facility] [id number]) Shoulder Strength Shoulder Manual Muscle Testing Right Flexion 4+ Good+ Extension 5 Normal Abduction (C5) 4 Good Adduction 5 Normal External Rotation 4- Good- Internal Rotation 5 Normal Horizontal Abduction 5 Normal Horizontal Adduction 5 Normal Left Flexion 5 Normal Extension 5 Normal Abduction (C5) 5 Normal External Rotation 5 Normal Internal Rotation 5 Normal Horizontal Abduction 5 Normal PT-OP-Q Treatments Start: 07/04/23 17:57 Freq: Status: Active Protocol: Document 12/26/23 15:23 [facility] (Rec: 12/26/23 18:04 [facility] [id number]) Therapeutic Exercises Supine Exercises SHoulder flex Supine Exercise Name self resisted w/dowel Side right Reps/Minutes end range 10 sec x6 Prone Exercises 90/90 ER Prone Exercise Name over tball Side bilateral Equipment Used 2# Reps/Minutes 15 scaption Side bilateral Resistance 2# Equipment Used over 65cm tball Reps/Minutes 15 Comments cued ft contact on wall Sidelying Exercises abd Side right Equipment Used 4# Reps/Minutes 12 Standing Exercises AROM measurements Standing Exercise Name R Shld ER Standing Exercise Name 1.90/90 2.at side w/towel at side Side right Equipment Used 1.orange band 2. blue Reps/Minutes 15 Other Exercises isometrics Other Exercise Name MMT Side right Manual Therapy Treatment Soft Tissue Mobilization R shoulder Body Location distal pec, prox Teres, distal Lat, prox SA, Mobilization Type Rolling,Sustained Pressure Intensity/Depth Moderate Body Position Hooklying Comments w/flex & abd & ER Joint Mobilizations thoracic Comments UPA R T 5-8 in prayer position R GH jt Comments R inf in prayer and w/AAROM flex dowel PT-OP-R Modalities Start: 07/04/23 17:57 Freq: Status: Active Protocol: Document 08/22/23 10:37 [facility] (Rec: 08/22/23 11:24 [facility] [id number]) Hot Pack/Cold Pack Treatment CP Location R shld Patient Position Supine Treatment Duration (minutes) 10 Patient Tolerance Good PT-OP-T Assessment and Plan Start: 07/04/23 17:57 Freq: Status: Active Protocol: Document 12/26/23 15:23 [facility] (Rec: 12/26/23 18:04 [facility] [id number]) Physical Therapy Assessment Goals quick dash Impairment 54.54 Short Term Goal (STG) Pt will improve quick dash score to no greater than 35 to show improved functional ability. 08/15- 65.9, pt reported he answered in referernce to RUE only this time compared to eval 10/02-much improved 36 STG Duration achieved to 29 11/25 Custodial Goal (LTG) Pt will improve quick dash score to no greater than 10 to show improved functional ability. 12/25-. LTG Duration 02/27 strength Short Term Goal (STG) Pt will be indep w/HEP for strength and ROM per PT based on protocol. 08/15- progressing, ROM HEP added today STG Duration achieved when home; advancing as able Highway Administrative Engineer Goal (LTG) Pt will score at least 4+/5 on all MMT on RUE to show good start to progression of RUE strength to allow return to household activities w/o inc pain. 10/02-improving 11/25-improving 12/25-improved LTG Duration 02/27 ROM Short Term Goal (STG) Pt will have full PROM with no more than 2/10 pain 08/15- progressing 10/02 mild pain end ranges slight limit STG Duration no pain mild tension Custodial Goal (LTG) Pt will have full AROM in order to allow pt to return overhead activities and dressing w/o inc pain. 10/02-no pain w/dressing imprvoinging 11/19/23: Progressing standing Rshld AROM: R 152 FF, 140 ABD, ER 77 deg, L2, (further with towel support). 11/25-much improved 12/25-imporved range but still limited-improved ability to work overhead LTG Duration 02/27 Assessment Summary Assessment Pt cont to make progress w/PT and demonstrates dec ROM of RUE and dec abd and ER strength mostly w/occ compliance w/HEP. Pt has been encouraged to focus over the next month on HEP to get strength and further ROM and w /in session improved flex by 10 deg. Cont PT to improve functional capacity Physical Therapy Plan Frequency and Duration Frequency of Treatment 1x/Week Duration of treatment (weeks) 8 Plan of Care Start Date 12/26/23 Plan of Care End Date 02/28/24 Therapeutic Interventions Therapeutic Interventions Gait Training,Home Exercise Program,Joint Mobilizations, Manual Therapy,Neuromuscular Re-education,Patient/Caregiver Education,Self-Care/Home Management,Soft Tissue Mobilization,Taping, Therapeutic Activities, Therapeutic Exercises Modalities Cold Pack/Ice Massage,Electric Stimulation,Hot Packs, Infrared Therapy,Ultrasound Next Visit Focus/Plan Next Note Type Treatment Note Next Visit Plan POC: cont to work on ER strength & abd strength; end range mobility and strength
--- NOTE | 2023-12-26 18:05 | PT.OPPOC ---
Physical, Occupational & Speech Therapy At [facility] Current Diagnoses Unspecified rotator cuff tear or rupture of right shoulder, not specified as traumatic (12/26/23) Strain of other muscles, fascia and tendons at shoulder and upper arm level, right arm, subsequent encounter (12/26/23) Visit Care Team Role Provider Type Juan Carlos Gonzalez MD Family Provider Physician Primary Care Provider Specialty: Family Practice Address: [address] [place] [address], [address], [place], [address] Email: [email or web address] Raoul Maurer MD Attending Provider Physician Referring Provider Specialty: Orthopedics Orthopedic Surgery Address: [address] [place] [address], [id number] Email: [email or web address] Plan Of Care PT-OP-T Assessment and Plan Start: 07/04/23 17:57 Freq: Status: Active Protocol: Document 12/26/23 15:23 [facility] (Rec: 12/26/23 18:04 [facility] [id number]) Physical Therapy Assessment Goals quick dash Impairment 54.54 Short Term Goal (STG) Pt will improve quick dash score to no greater than 35 to show improved functional ability. 08/15- 65.9, pt reported he answered in referernce to RUE only this time compared to eval 10/02-much improved 36 STG Duration achieved to 29 11/25 Kennel Worker Goal (LTG) Pt will improve quick dash score to no greater than 10 to show improved functional ability. 12/25-18.18 LTG Duration 02/27 strength Short Term Goal (STG) Pt will be indep w/HEP for strength and ROM per PT based on protocol. 08/15- progressing, ROM HEP added today STG Duration achieved when home; advancing as able Retirement Goal (LTG) Pt will score at least 4+/5 on all MMT on RUE to show good start to progression of RUE strength to allow return to household activities w/o inc pain. 10/02-improving 11/25-improving 12/25-improved LTG Duration 02/27 ROM Short Term Goal (STG) Pt will have full PROM with no more than 2/10 pain 08/15- progressing 10/02 mild pain end ranges slight limit STG Duration no pain mild tension Kennel Worker Goal (LTG) Pt will have full AROM in order to allow pt to return overhead activities and dressing w/o inc pain. 10/02-no pain w/dressing imprvoinging 11/19/23: Progressing standing Rshld AROM: R 152 FF, 140 ABD, ER 77 deg, L2, (further with towel support). 11/25-much improved 12/25-imporved range but still limited-improved ability to work overhead LTG Duration 02/27 Assessment Summary Assessment Pt cont to make progress w/PT and demonstrates dec ROM of RUE and dec abd and ER strength mostly w/occ compliance w/HEP. Pt has been encouraged to focus over the next month on HEP to get strength and further ROM and w /in session improved flex by 10 deg. Cont PT to improve functional capacity Physical Therapy Plan Frequency and Duration Frequency of Treatment 1x/Week Duration of treatment (weeks) 8 Plan of Care Start Date 12/26/23 Plan of Care End Date 02/28/24 Therapeutic Interventions Therapeutic Interventions Gait Training,Home Exercise Program,Joint Mobilizations, Manual Therapy,Neuromuscular Re-education,Patient/Caregiver Education,Self-Care/Home Management,Soft Tissue Mobilization,Taping, Therapeutic Activities, Therapeutic Exercises Modalities Cold Pack/Ice Massage,Electric Stimulation,Hot Packs, Infrared Therapy,Ultrasound Next Visit Focus/Plan Next Note Type Treatment Note Next Visit Plan POC: cont to work on ER strength & abd strength; end range mobility and strength Plan of Care Dates Plan of Care Start Date 12/26/23 Plan of Care End Date 02/28/24 Electronically Signed by: Darcy Sorensen, PT 12/26/23 8124 If you are in agreement with this Plan of Care, please return a signed and dated copy. I have reviewed this Plan of Care and certify that the skilled therapy services above are required to meet the patient?s needs. Physician Signature Date Printed Name and Credentials Clinical Instructor Signature Printed Name and Credentials
--- NOTE | 2024-01-01 13:41 | PT.OTN ---
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 PT-OP-B Current Condition Start: 07/04/23 17:57 Freq: Status: Active Protocol: Document 07/09/23 12:13 [facility] (Rec: 07/09/23 16:03 [facility] [id number]) Current Condition History of Current Condition History of Current Condition Pt was lifting an aluminum boat out in front and heard/ felt it on Apr 03. He had full thickness RCT and had it repaired and subacromial decompression. He had surgery 07/04/23. He reports he took a shower yesterday adn almost paased out. He can't sleep on his back so have been sleeping on his side. Meds have helped w/pain. He has been phasing out of it oxy/tylenol. He takes them as needed. He sees Dr. Maurer on 07/14. He can dress himself etc. He is R handed. 2004 L RCR Treatment Goals Patient/Caregiver Goals Goals: fishing, hunting (bow, pistol, rifle), target shooting, fixing things, lifting (dumbells and bands), use arm again (mobility biggest concern) PT-OP-C Subjective Start: 07/04/23 17:57 Freq: Status: Active Protocol: Document 01/01/24 13:01 [facility] (Rec: 01/01/24 14:31 [facility] [id number]) OP-PT Subjective Patient Comments Patient Comments Pt reports saw Dr Maurer and released and healed well. Can continue PT until continue FROM and strength for activities needed. Stated has tried to make it a focus ROM with HEP lately on stretching: use doorway and use dowel. Feels weak on resisted IR. PT-OP-F Manual Assessment Start: 07/04/23 17:57 Freq: Status: Active Protocol: Document 07/09/23 12:13 [facility] (Rec: 07/09/23 16:03 [facility] [id number]) Manual Assessments Other Manual Assessments Other Manual Assessments incisions covered w/ steristrips, bruising through brachium to elbow PT-OP-K Range of Motion Start: 07/04/23 17:57 Freq: Status: Active Protocol: Document 12/26/23 15:23 [facility] (Rec: 12/26/23 18:04 [facility] [id number]) Shoulder Goniometric Range of Motion Shoulder Right Active Flexion 142 Extension 63 Abduction 146 External Rotation at 90 degrees 88 Abduction External Rotation at 0 degrees Abduction 60 Internal Rotation Behind Back (text) T12 Comments abd slightly towards scaption PT-OP-M Strength Start: 07/04/23 17:57 Freq: Status: Active Protocol: Document 12/26/23 15:23 [facility] (Rec: 12/26/23 18:04 [facility] [id number]) Shoulder Strength Shoulder Manual Muscle Testing Right Flexion 4+ Good+ Extension 5 Normal Abduction (C5) 4 Good Adduction 5 Normal External Rotation 4- Good- Internal Rotation 5 Normal Horizontal Abduction 5 Normal Horizontal Adduction 5 Normal Left Flexion 5 Normal Extension 5 Normal Abduction (C5) 5 Normal External Rotation 5 Normal Internal Rotation 5 Normal Horizontal Abduction 5 Normal PT-OP-Q Treatments Start: 07/04/23 17:57 Freq: Status: Active Protocol: Document 01/01/24 13:01 [facility] (Rec: 01/01/24 14:31 [facility] [id number]) Cardio Equipment Upper Body Ergometer (UBE) Duration (Minutes) 6 RPM 65 Seat Position 13 Height 4.5 Other f/b 1 min alternating Therapeutic Exercises Supine Exercises Rhythmic Stabilization into FF Supine Exercise Name trialed Side bilateral Resistance 55cm tball Sidelying Exercises sleeper stetch Sidelying Exercise Name HEP reviewed: 60 & 90 deg Side right Resistance AAROM Equipment Used manual therapist assist Reps/Minutes [id number] Comments cued positioning Standing Exercises IR stretch Side right Equipment Used towel, mirror Reps/Minutes 5 breaths x3 Comments cued level shld, head up- improved across opp pelvis then up wall walk Standing Exercise Name doorway stretch w/flex & ABD, challenge lift off with proper form Side right Equipment Used mirror use Reps/Minutes 3 each hold 30 Comments cued level shld, scap inf glide, head L midline neutral Manual Therapy Treatment Soft Tissue Mobilization R shoulder Body Location distal pec, prox Teres, distal Lat, prox SA, Mobilization Type Rolling,Sustained Pressure Intensity/Depth Moderate Body Position Hooklying Comments MWM w/flex & abd /c ER Joint Mobilizations AC Joint R clavicle inferior Grade II Body Position Hooklying Comments /c breath and MWM FF R GH jt Joint R Grade III Comments supine: -inf glide w/flex -posterior glide AROM IR/ER Prone: -anterior AAROM abd/ER, IR R scapulothoracic Joint ossicilations Direction inferior, scapular add/inf Grade III Body Position Prone Comments inferior R UE at side, R hand in back pocket, R hand in LB- improved scapular mobility and increased ROM into IR across low back. PT-OP-R Modalities Start: 07/04/23 17:57 Freq: Status: Active Protocol: Document 08/22/23 10:37 [facility] (Rec: 08/22/23 11:24 [facility] [id number]) Hot Pack/Cold Pack Treatment CP Location R shld Patient Position Supine Treatment Duration (minutes) 10 Patient Tolerance Good PT-OP-T Assessment and Plan Start: 07/04/23 17:57 Freq: Status: Active Protocol: Document 01/01/24 13:01 [facility] (Rec: 01/01/24 14:31 [facility] [id number]) Physical Therapy Assessment Goals quick dash Impairment 54.54 Short Term Goal (STG) Pt will improve quick dash score to no greater than 35 to show improved functional ability. 08/15- 65.9, pt reported he answered in referernce to RUE only this time compared to eval 10/02-much improved 36 STG Duration achieved to 29 11/25 [facility] Goal (LTG) Pt will improve quick dash score to no greater than 10 to show improved functional ability. 12/25-18.18 LTG Duration 02/27 strength Short Term Goal (STG) Pt will be indep w/HEP for strength and ROM per PT based on protocol. 08/15- progressing, ROM HEP added today STG Duration achieved when home; advancing as able [facility] Goal (LTG) Pt will score at least 4+/5 on all MMT on RUE to show good start to progression of RUE strength to allow return to household activities w/o inc pain. 10/02-improving 11/25-improving 12/25-improved LTG Duration 02/27 ROM Short Term Goal (STG) Pt will have full PROM with no more than 2/10 pain 08/15- progressing 10/02 mild pain end ranges slight limit STG Duration no pain mild tension [facility] Goal (LTG) Pt will have full AROM in order to allow pt to return overhead activities and dressing w/o inc pain. 10/02-no pain w/dressing imprvoinging 11/19/23: Progressing standing Rshld AROM: R 152 FF, 140 ABD, ER 77 deg, L2, (further with towel support). 11/25-much improved 12/25-imporved range but still limited-improved ability to work overhead LTG Duration 02/27 Assessment Summary Assessment Pt responded well to manual, gained increase FF and ABD ROM . Improved understanding and use mirror for doorway AAROM FF and ABD today with cues for scap and head alignment. Pt was able to increase IR behind back to approx L 2 level /c use towel over L shld. Pt reports Rshld sore but pleased with seen improved ROM. Osscilations was helpful scapulothoracic and GH jt rhymic reduction shld tension to allow improvement in IR progress ROM. Physical Therapy Plan Frequency and Duration Frequency of Treatment 1x/Week Duration of treatment (weeks) 8 Plan of Care Start Date 12/26/23 Plan of Care End Date 02/28/24 Therapeutic Interventions Therapeutic Interventions Gait Training,Home Exercise Program,Joint Mobilizations, Manual Therapy,Neuromuscular Re-education,Patient/Caregiver Education,Self-Care/Home Management,Soft Tissue Mobilization,Taping, Therapeutic Activities, Therapeutic Exercises Modalities Cold Pack/Ice Massage,Electric Stimulation,Hot Packs, Infrared Therapy,Ultrasound Next Visit Focus/Plan Next Note Type Treatment Note Next Visit Plan Assess progression in proper form FF, ABD AROM post last tx . POC: cont to work on ER strength & abd strength; end range mobility and strength
--- NOTE | 2024-01-11 12:47 | PT.OTN ---
Current Diagnoses Unspecified rotator cuff tear or rupture of right shoulder, not specified as traumatic (01/11/24) Strain of other muscles, fascia and tendons at shoulder and upper arm level, right arm, subsequent encounter (01/11/24) Physical Therapy Treatment Note PT-OP-A Visit Information Start: 07/04/23 17:57 Freq: Status: Active Protocol: Document 01/11/24 08:04 AB (Rec: 01/11/24 09:02 AB [id number]) Out-Patient Physical Therapy Visit Information Visit Information Visit Type Treatment Note Visit Note 11/10 KX modifier post visit Visit [email or web address] Access Code: [email or web address] Visit Start Time 08:16 Visit Stop Time 09:00 Visit Number 28 Number of WHITE GOODS APPLIANCE TECH Visits 2 Precautions Precautions 07/16/23: s/p R full thickness RTC repair with subacromial decompression. PT-OP-B Current Condition Start: 07/04/23 17:57 Freq: Status: Active Protocol: Document 07/09/23 12:13 [facility] (Rec: 07/09/23 16:03 [facility] [id number]) Current Condition History of Current Condition History of Current Condition Pt was lifting an aluminum boat out in front and heard/ felt it on Apr 03. He had full thickness RCT and had it repaired and subacromial decompression. He had surgery 07/04/23. He reports he took a shower yesterday adn almost paased out. He can't sleep on his back so have been sleeping on his side. Meds have helped w/pain. He has been phasing out of it oxy/tylenol. He takes them as needed. He sees Dr. Maurer on 07/14. He can dress himself etc. He is R handed. 2004 L RCR Treatment Goals Patient/Caregiver Goals Goals: fishing, hunting (bow, pistol, rifle), target shooting, fixing things, lifting (dumbells and bands), use arm again (mobility biggest concern) PT-OP-C Subjective Start: 07/04/23 17:57 Freq: Status: Active Protocol: Document 01/11/24 08:04 AB (Rec: 01/11/24 09:02 AB [id number]) OP-PT Subjective Patient Comments Patient Comments Patient reports the shoulder is the same. Patient reports he doesn't have all the motion he wants to have. Patient reports difficulty working overhead ie working around the home. AROM right shoulder flexion 135 deg start of session. PT-OP-F Manual Assessment Start: 07/04/23 17:57 Freq: Status: Active Protocol: Document 07/09/23 12:13 [facility] (Rec: 07/09/23 16:03 [facility] [id number]) Manual Assessments Other Manual Assessments Other Manual Assessments incisions covered w/ steristrips, bruising through brachium to elbow PT-OP-K Range of Motion Start: 07/04/23 17:57 Freq: Status: Active Protocol: Document 12/26/23 15:23 [facility] (Rec: 12/26/23 18:04 [facility] [id number]) Shoulder Goniometric Range of Motion Shoulder Right Active Flexion 142 Extension 63 Abduction 146 External Rotation at 90 degrees 88 Abduction External Rotation at 0 degrees Abduction 60 Internal Rotation Behind Back (text) T12 Comments abd slightly towards scaption PT-OP-M Strength Start: 07/04/23 17:57 Freq: Status: Active Protocol: Document 12/26/23 15:23 [facility] (Rec: 12/26/23 18:04 [facility] [id number]) Shoulder Strength Shoulder Manual Muscle Testing Right Flexion 4+ Good+ Extension 5 Normal Abduction (C5) 4 Good Adduction 5 Normal External Rotation 4- Good- Internal Rotation 5 Normal Horizontal Abduction 5 Normal Horizontal Adduction 5 Normal Left Flexion 5 Normal Extension 5 Normal Abduction (C5) 5 Normal External Rotation 5 Normal Internal Rotation 5 Normal Horizontal Abduction 5 Normal PT-OP-Q Treatments Start: 07/04/23 17:57 Freq: Status: Active Protocol: Document 01/11/24 08:04 AB (Rec: 01/11/24 09:02 AB [id number]) Therapeutic Exercises Supine Exercises SHoulder flex Supine Exercise Name AROM hands not clasped Side bilateral Reps/Minutes 10 second hold X 10 Sidelying Exercises ER Side right Reps/Minutes 15 Standing Exercises High row Side bilateral Resistance level 3 and level 4 bands Reps/Minutes 2X15 one set level 3 one set level 4 Comments verbal and visual cues puh up plus Standing Exercise Name wall push up plus Side bilateral Reps/Minutes 2x10 Comments verbal and visual cues lat stretch at wall Standing Exercise Name at wall and standing with UE's on mat at counter height Side right Reps/Minutes X1 Comments not mauricio pec stretch Standing Exercise Name single arm at door frame Side right Reps/Minutes 60 X 2 Comments just over 90 deg wall walk Standing Exercise Name Wall slide with lift off and lower Side right Reps/Minutes X10 Comments Verbal cues Manual Therapy Treatment Soft Tissue Mobilization R arm Body Location Pec, post cuff, lat, UT, levator scap Mobilization Type Cross-Friction,Rolling, Sustained Pressure Intensity/Depth Moderate Body Position Hooklying Comments and sidelying Joint Mobilizations R GH jt Joint R Grade IV Body Position Hooklying Reps/Duration X10 X 3 each R scapulothoracic Direction into depression and adduction Grade III Body Position Sidelying Manual Techniques PROM Type PROM ER and lat/pin stretch right UE Body Location right shoulder Body Position Sidelying Reps/Duration X10 ER X 5 lat and pin PT-OP-R Modalities Start: 07/04/23 17:57 Freq: Status: Active Protocol: Document 08/22/23 10:37 [facility] (Rec: 08/22/23 11:24 [facility] [id number]) Hot Pack/Cold Pack Treatment CP Location R shld Patient Position Supine Treatment Duration (minutes) 10 Patient Tolerance Good PT-OP-T Assessment and Plan Start: 07/04/23 17:57 Freq: Status: Active Protocol: Document 01/11/24 08:04 AB (Rec: 01/11/24 09:02 AB [id number]) Physical Therapy Assessment Goals quick dash Impairment 54.54 Short Term Goal (STG) Pt will improve quick dash score to no greater than 35 to show improved functional ability. 08/15- 65.9, pt reported he answered in referernce to RUE only this time compared to eval 10/02-much improved 36 STG Duration achieved to 29 11/25 Halfway Goal (LTG) Pt will improve quick dash score to no greater than 10 to show improved functional ability. 12/25-18.18 LTG Duration 02/27 strength Short Term Goal (STG) Pt will be indep w/HEP for strength and ROM per PT based on protocol. 08/15- progressing, ROM HEP added today STG Duration achieved when home; advancing as able Halfway Goal (LTG) Pt will score at least 4+/5 on all MMT on RUE to show good start to progression of RUE strength to allow return to household activities w/o inc pain. 10/02-improving 11/25-improving 12/25-improved LTG Duration 02/27 ROM Short Term Goal (STG) Pt will have full PROM with no more than 2/10 pain 08/15- progressing 10/02 mild pain end ranges slight limit STG Duration no pain mild tension Donor Floor Technician Goal (LTG) Pt will have full AROM in order to allow pt to return overhead activities and dressing w/o inc pain. 10/02-no pain w/dressing imprvoinging 11/19/23: Progressing standing Rshld AROM: R 152 FF, 140 ABD, ER 77 deg, L2, (further with towel support). 11/25-much improved 12/25-imporved range but still limited-improved ability to work overhead LTG Duration 02/27 Assessment Summary Assessment 134 deg AROM right shoulder flexion end of session, likely due to fatigue, reports no increased pain end of session. AROM in supine to 152 deg ( gravity assisted) during session right shoulder. Physical Therapy Plan Frequency and Duration Frequency of Treatment 1x/Week Duration of treatment (weeks) 8 Plan of Care Start Date 12/26/23 Plan of Care End Date 02/28/24 Next Visit Focus/Plan Next Note Type Treatment Note Next Visit Plan Assess progression in proper form FF, ABD AROM post last tx . POC: cont to work on ER strength & abd strength; end range mobility and strength
--- NOTE | 2024-01-17 11:17 | PT.OTN ---
Current Diagnoses Unspecified rotator cuff tear or rupture of right shoulder, not specified as traumatic (01/17/24) Strain of other muscles, fascia and tendons at shoulder and upper arm level, right arm, subsequent encounter (01/17/24) Physical Therapy Treatment Note PT-OP-A Visit Information Start: 07/04/23 17:57 Freq: Status: Active Protocol: Document 01/17/24 10:34 SP (Rec: 01/17/24 11:43 SP [id number]) Out-Patient Physical Therapy Visit Information Visit Information Visit Type Treatment Note Visit Note 12/11 KX modifier post visit Access Code: [email or web address] Visit Start Time 10:34 Visit Stop Time 11:17 Visit Number 29 Number of EYEGLASS FITTER Visits 3 Precautions Precautions 07/16/23: s/p R full thickness RTC repair with subacromial decompression. PT-OP-B Current Condition Start: 07/04/23 17:57 Freq: Status: Active Protocol: Document 07/09/23 12:13 [facility] (Rec: 07/09/23 16:03 [facility] [id number]) Current Condition History of Current Condition History of Current Condition Pt was lifting an aluminum boat out in front and heard/ felt it on Apr 03. He had full thickness RCT and had it repaired and subacromial decompression. He had surgery 07/04/23. He reports he took a shower yesterday adn almost paased out. He can't sleep on his back so have been sleeping on his side. Meds have helped w/pain. He has been phasing out of it oxy/tylenol. He takes them as needed. He sees Dr. Maurer on 07/14. He can dress himself etc. He is R handed. 2004 L RCR Treatment Goals Patient/Caregiver Goals Goals: fishing, hunting (bow, pistol, rifle), target shooting, fixing things, lifting (dumbells and bands), use arm again (mobility biggest concern) PT-OP-C Subjective Start: 07/04/23 17:57 Freq: Status: Active Protocol: Document 01/17/24 10:34 SP (Rec: 01/17/24 11:43 SP [id number]) OP-PT Subjective Patient Comments Patient Comments Pt reports R shld feels ok after stretching but not long lasting and stiff/discomfort when wakes up, L side sleeper. Demonstrated still limited FF in standing /c UT & bicep recruitment. PT-OP-F Manual Assessment Start: 07/04/23 17:57 Freq: Status: Active Protocol: Document 07/09/23 12:13 LR (Rec: 07/09/23 16:03 [facility] [id number]) Manual Assessments Other Manual Assessments Other Manual Assessments incisions covered w/ steristrips, bruising through brachium to elbow PT-OP-K Range of Motion Start: 07/04/23 17:57 Freq: Status: Active Protocol: Document 12/26/23 15:23 [facility] (Rec: 12/26/23 18:04 [facility] [id number]) Shoulder Goniometric Range of Motion Shoulder Right Active Flexion 142 Extension 63 Abduction 146 External Rotation at 90 degrees 88 Abduction External Rotation at 0 degrees Abduction 60 Internal Rotation Behind Back (text) T12 Comments abd slightly towards scaption PT-OP-M Strength Start: 07/04/23 17:57 Freq: Status: Active Protocol: Document 12/26/23 15:23 [facility] (Rec: 12/26/23 18:04 [facility] [id number]) Shoulder Strength Shoulder Manual Muscle Testing Right Flexion 4+ Good+ Extension 5 Normal Abduction (C5) 4 Good Adduction 5 Normal External Rotation 4- Good- Internal Rotation 5 Normal Horizontal Abduction 5 Normal Horizontal Adduction 5 Normal Left Flexion 5 Normal Extension 5 Normal Abduction (C5) 5 Normal External Rotation 5 Normal Internal Rotation 5 Normal Horizontal Abduction 5 Normal PT-OP-Q Treatments Start: 07/04/23 17:57 Freq: Status: Active Protocol: Document 01/17/24 10:34 SP (Rec: 01/17/24 11:43 SP [id number]) Therapeutic Exercises Prone Exercises IR Prone Exercise Name AAROM and anterior R shld stretching Side right Reps/Minutes 3 reps, 20 SH Comments hand side hip on table>back pocket>across back 90/90 ER Prone Exercise Name 1. PROM abd/ER 2. AAROM 90/90 into mid range Ws Side right Resistance AAROM Equipment Used on table, humerus on 1/ foam roller &towel Comments AAROM & MWM prox humerus ant glide Habd Prone Exercise Name row Side right Comments tactile fac scap depression, AAROM into humeral HABD row Standing Exercises walk aways Standing Exercise Name reviewed bent over walk outs vs on knees RUE over tball Side bilateral Equipment Used bottoms stair rails vs over tball Reps/Minutes 30 sec multiple reps Comments ed work into FF, scaption with AAROM stretch anterior shld Manual Therapy Treatment Soft Tissue Mobilization R shoulder Body Location Pec Power, post cuff, lat, subscap, mid/distal teres& infrasp Mobilization Type Rolling,Sustained Pressure, Other Comments PROM & MWM humeral FF hooklying, prone row/ER/ scaption short & long lever arm & range Joint Mobilizations AC Joint R distal clavicle Direction inferior Grade II Body Position Hooklying Comments /c breath and MWM FF R GH jt Joint R Direction Prox humeral: anterior, inferior, posterior Grade III Comments prone anterior: /c PROM-AAROM: row/IR/ER/scaption&FF (inf& ant)/IR hand in back pocket> across LB, hooklying use strap around bents LEs>top scap/shld: post/inf prox humeral glide into FF& scaption. PT-OP-R Modalities Start: 07/04/23 17:57 Freq: Status: Active Protocol: Document 08/22/23 10:37 LR (Rec: 08/22/23 11:24 [facility] [id number]) Hot Pack/Cold Pack Treatment CP Location R shld Patient Position Supine Treatment Duration (minutes) 10 Patient Tolerance Good PT-OP-T Assessment and Plan Start: 07/04/23 17:57 Freq: Status: Active Protocol: Document 01/17/24 10:34 SP (Rec: 01/17/24 11:43 SP [id number]) Physical Therapy Assessment Goals quick dash Impairment 54.54 Short Term Goal (STG) Pt will improve quick dash score to no greater than 35 to show improved functional ability. 08/15- 65.9, pt reported he answered in referernce to RUE only this time compared to eval 10/02-much improved 36 STG Duration achieved to 29 11/25 Custodial Goal (LTG) Pt will improve quick dash score to no greater than 10 to show improved functional ability. 12/25-18.18 LTG Duration 02/27 strength Short Term Goal (STG) Pt will be indep w/HEP for strength and ROM per PT based on protocol. 08/15- progressing, ROM HEP added today STG Duration achieved when home; advancing as able Custodial Goal (LTG) Pt will score at least 4+/5 on all MMT on RUE to show good start to progression of RUE strength to allow return to household activities w/o inc pain. 10/02-improving 11/25-improving 12/25-improved LTG Duration 02/27 ROM Short Term Goal (STG) Pt will have full PROM with no more than 2/10 pain 08/15- progressing 10/02 mild pain end ranges slight limit STG Duration no pain mild tension Custodial Goal (LTG) Pt will have full AROM in order to allow pt to return overhead activities and dressing w/o inc pain. 10/02-no pain w/dressing imprvoinging 11/19/23: Progressing standing Rshld AROM: R 152 FF, 140 ABD, ER 77 deg, L2, (further with towel support). 11/25-much improved 12/25-imporved range but still limited-improved ability to work overhead LTG Duration 02/27 Assessment Summary Assessment Beginnning/End of Tx standing AROM RUE: FF 143*>150*, ABD 162*>163*. Pt tolerated manual , PROM, AAROM into ABD ER, IR, FF in hooklying, prone with demonstrated increased ROM into FF taken in standing. Reports soreness end tx but pleased with gains. Ed review FF AAROM use rail/tball. Next tx continue end range FF, ABD/ ER, IR with prone activities. Physical Therapy Plan Frequency and Duration Frequency of Treatment 1x/Week Duration of treatment (weeks) 8 Plan of Care Start Date 12/26/23 Plan of Care End Date 02/28/24 Therapeutic Interventions Therapeutic Interventions Gait Training,Home Exercise Program,Joint Mobilizations, Manual Therapy,Neuromuscular Re-education,Patient/Caregiver Education,Self-Care/Home Management,Soft Tissue Mobilization,Taping, Therapeutic Activities, Therapeutic Exercises Modalities Cold Pack/Ice Massage,Electric Stimulation,Hot Packs, Infrared Therapy,Ultrasound Next Visit Focus/Plan Next Note Type Treatment Note Next Visit Plan Assess progression in proper form FF, ABD AROM and condense what should focus on home. POC: cont to work on ER strength & abd strength; end range mobility and strength
--- NOTE | 2024-01-21 12:26 | PT.OTN ---
Current Diagnoses Unspecified rotator cuff tear or rupture of right shoulder, not specified as traumatic (01/21/24) Strain of other muscles, fascia and tendons at shoulder and upper arm level, right arm, subsequent encounter (01/21/24) Physical Therapy Treatment Note PT-OP-A Visit Information Start: 07/04/23 17:57 Freq: Status: Active Protocol: Document 01/21/24 10:38 [facility] (Rec: 01/21/24 12:25 [facility] [id number]) Out-Patient Physical Therapy Visit Information Visit Information Visit Type Treatment Note Visit Note 09/12 Visit Number 30 Number of HAIR DRESSER Visits 0 PT-OP-B Current Condition Start: 07/04/23 17:57 Freq: Status: Active Protocol: Document 07/09/23 12:13 [facility] (Rec: 07/09/23 16:03 [facility] [id number]) Current Condition History of Current Condition History of Current Condition Pt was lifting an aluminum boat out in front and heard/ felt it on Apr 03. He had full thickness RCT and had it repaired and subacromial decompression. He had surgery 07/04/23. He reports he took a shower yesterday adn almost paased out. He can't sleep on his back so have been sleeping on his side. Meds have helped w/pain. He has been phasing out of it oxy/tylenol. He takes them as needed. He sees Dr. Maurer on 07/14. He can dress himself etc. He is R handed. 2004 L RCR Treatment Goals Patient/Caregiver Goals Goals: fishing, hunting (bow, pistol, rifle), target shooting, fixing things, lifting (dumbells and bands), use arm again (mobility biggest concern) PT-OP-C Subjective Start: 07/04/23 17:57 Freq: Status: Active Protocol: Document 01/21/24 10:38 [facility] (Rec: 01/21/24 12:25 [facility] [id number]) OP-PT Subjective Patient Comments Patient Comments been fishing and has some difficulty with fly fish throw PT-OP-F Manual Assessment Start: 07/04/23 17:57 Freq: Status: Active Protocol: Document 07/09/23 12:13 [facility] (Rec: 07/09/23 16:03 [facility] [id number]) Manual Assessments Other Manual Assessments Other Manual Assessments incisions covered w/ steristrips, bruising through brachium to elbow PT-OP-K Range of Motion Start: 07/04/23 17:57 Freq: Status: Active Protocol: Document 01/21/24 10:38 [facility] (Rec: 01/21/24 12:25 [facility] [id number]) Shoulder Goniometric Range of Motion Shoulder Right Active Flexion 145 Extension 63 Abduction 158 External Rotation at 90 degrees 90 Abduction External Rotation at 0 degrees Abduction 61 Internal Rotation Behind Back (text) T9 Comments abd slightly towards scaption PT-OP-M Strength Start: 07/04/23 17:57 Freq: Status: Active Protocol: Document 01/21/24 10:38 [facility] (Rec: 01/21/24 12:25 [facility] [id number]) Shoulder Strength Shoulder Manual Muscle Testing Right Flexion 4+ Good+ Extension 5 Normal Abduction (C5) 4+ Good+ Adduction 5 Normal External Rotation 4 Good Internal Rotation 5 Normal Horizontal Abduction 5 Normal Horizontal Adduction 5 Normal PT-OP-Q Treatments Start: 07/04/23 17:57 Freq: Status: Active Protocol: Document 01/21/24 10:38 [facility] (Rec: 01/21/24 12:25 [facility] [id number]) Therapeutic Exercises Supine Exercises foam roll Supine Exercise Name FF & snow angels Equipment Used over foam roller Reps/Minutes 8 ea Comments cued elbow ext SHoulder flex Supine Exercise Name manual facilitation end range flex Side right Reps/Minutes prolonged holds Sidelying Exercises ER Side right Equipment Used 3# Reps/Minutes 8 Standing Exercises AROM measurements Standing Exercise Name R Shld ER Standing Exercise Name 1.90/90 2.at side w/towel at side Side right Equipment Used 1.orange [place] then 2-5# wt 2. [place] Reps/Minutes 15 ea Comments able to do full range w/5# Other Exercises isometrics Other Exercise Name MMT Side right Manual Therapy Treatment Soft Tissue Mobilization R shoulder Body Location Pec Power, post cuff, lat, subscap, mid/distal teres& infrasp Mobilization Type Rolling,Sustained Pressure, Other Comments w/flex and abd ROM Joint Mobilizations AC Comments R clavicle ant FM R GH jt Comments R post and inf glides w/ overhad motion PT-OP-R Modalities Start: 07/04/23 17:57 Freq: Status: Active Protocol: Document 08/22/23 10:37 [facility] (Rec: 08/22/23 11:24 [facility] [id number]) Hot Pack/Cold Pack Treatment CP Location R shld Patient Position Supine Treatment Duration (minutes) 10 Patient Tolerance Good PT-OP-T Assessment and Plan Start: 07/04/23 17:57 Freq: Status: Active Protocol: Document 01/21/24 10:38 [facility] (Rec: 01/21/24 12:25 [facility] [id number]) Physical Therapy Assessment Goals quick dash Impairment 54.54 Short Term Goal (STG) Pt will improve quick dash score to no greater than 35 to show improved functional ability. 08/15- 65.9, pt reported he answered in referernce to RUE only this time compared to eval 10/02-much improved 36 STG Duration achieved to 29 11/25 Nursing Home Goal (LTG) Pt will improve quick dash score to no greater than 10 to show improved functional ability. 12/25-.18 LTG Duration 02/27 strength Short Term Goal (STG) Pt will be indep w/HEP for strength and ROM per PT based on protocol. 08/15- progressing, ROM HEP added today STG Duration achieved when home; advancing as able Nursing Home Goal (LTG) Pt will score at least 4+/5 on all MMT on RUE to show good start to progression of RUE strength to allow return to household activities w/o inc pain. 10/02-improving 11/25-improving 12/25-improved LTG Duration 02/27 ROM Short Term Goal (STG) Pt will have full PROM with no more than 2/10 pain 08/15- progressing 10/02 mild pain end ranges slight limit STG Duration no pain mild tension Leaf Blender Goal (LTG) Pt will have full AROM in order to allow pt to return overhead activities and dressing w/o inc pain. 10/02-no pain w/dressing imprvoinging 11/19/23: Progressing standing Rshld AROM: R 152 FF, 140 ABD, ER 77 deg, L2, (further with towel support). 11/25-much improved 12/25-imporved range but still limited-improved ability to work overhead LTG Duration 02/27 Assessment Summary Assessment Pt had improved shoulder motion today as compared to other days w/imrpoved quality of ROM w/dec scap elevation w/ overhead motion. He is improving w/mobility, but is still limited and is heavily encouraged to cont strengthen and work on ROM at home. He nees [facility] focus and will plant o progress towards DC. Physical Therapy Plan Frequency and Duration Frequency of Treatment 1x/Week Duration of treatment (weeks) 8 Plan of Care Start Date 12/26/23 Plan of Care End Date 02/28/24 Next Visit Focus/Plan Next Note Type Discharge Summary Next Visit Plan consider DC next session
--- NOTE | 2024-01-29 12:32 | PT.OTN ---
Current Diagnoses Unspecified rotator cuff tear or rupture of right shoulder, not specified as traumatic (01/29/24) Strain of other muscles, fascia and tendons at shoulder and upper arm level, right arm, subsequent encounter (01/29/24) Physical Therapy Treatment Note PT-OP-A Visit Information Start: 07/04/23 17:57 Freq: Status: Active Protocol: Document 01/29/24 11:25 [facility] (Rec: 01/29/24 12:31 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 (Rec: 07/09/23 16:03 [facility] [id number]) Current Condition History of Current Condition History of Current Condition Pt was lifting an aluminum boat out in front and heard/ felt it on Apr 03. He had full thickness RCT and had it repaired and subacromial decompression. He had surgery 07/04/23. He reports he took a shower yesterday adn almost paased out. He can't sleep on his back so have been sleeping on his side. Meds have helped w/pain. He has been phasing out of it oxy/tylenol. He takes them as needed. He sees Dr. Maurer on 07/14. He can dress himself etc. He is R handed. 2004 L RCR Treatment Goals Patient/Caregiver Goals Goals: fishing, hunting (bow, pistol, rifle), target shooting, fixing things, lifting (dumbells and bands), use arm again (mobility biggest concern) PT-OP-C Subjective Start: 07/04/23 17:57 Freq: Status: Active Protocol: Document 01/29/24 11:25 [facility] (Rec: 01/29/24 12:31 [facility] [id number]) OP-PT Subjective Patient Comments Patient Comments Pt reports getting bands in some PT-OP-F Manual Assessment Start: 07/04/23 17:57 Freq: Status: Active Protocol: Document 07/09/23 12:13 [facility] (Rec: 07/09/23 16:03 [facility] [id number]) Manual Assessments Other Manual Assessments Other Manual Assessments incisions covered w/ steristrips, bruising through brachium to elbow PT-OP-K Range of Motion Start: 07/04/23 17:57 Freq: Status: Active Protocol: Document 01/21/24 10:38 [facility] (Rec: 01/21/24 12:25 [facility] [id number]) Shoulder Goniometric Range of Motion Shoulder Right Active Flexion 145 Extension 63 Abduction 158 External Rotation at 90 degrees 90 Abduction External Rotation at 0 degrees Abduction 61 Internal Rotation Behind Back (text) T9 Comments abd slightly towards scaption PT-OP-M Strength Start: 07/04/23 17:57 Freq: Status: Active Protocol: Document 01/29/24 11:25 [facility] (Rec: 01/29/24 12:31 [facility] [id number]) Shoulder Strength Shoulder Manual Muscle Testing Right Flexion 4+ Good+ Extension 5 Normal Abduction (C5) 4+ Good+ Adduction 5 Normal External Rotation 4 Good Internal Rotation 5 Normal Horizontal Abduction 5 Normal Horizontal Adduction 5 Normal PT-OP-Q Treatments Start: 07/04/23 17:57 Freq: Status: Active Protocol: Document 01/29/24 11:25 [facility] (Rec: 01/29/24 12:31 [facility] [id number]) Therapeutic Exercises Prone Exercises 90/90 ER Prone Exercise Name 1.Ws 2. ER 90/90 Side right Resistance AROM Reps/Minutes 15 Comments plinth Sidelying Exercises ER Side right Equipment Used 3# Reps/Minutes 8 Sitting Exercises throw Sitting Exercise Name 1. throw downs 2. ER catch 3. throw at rebounder Side right Equipment Used 1&2:3.3 ball 3. 1kg ball Reps/Minutes 12 ea Standing Exercises Shld ER Standing Exercise Name 1. 2.at side w/towel at side Side right Equipment Used 1.orange band then 3-5# wt 2. [place] Reps/Minutes 15 ea Comments more cues w/5lbs Other Exercises isometrics Other Exercise Name MMT Side right Manual Therapy Treatment Soft Tissue Mobilization R shoulder Body Location Pec Power, post cuff, lat, subscap, mid/distal teres& infrasp Mobilization Type Rolling,Sustained Pressure, Other Comments w/flex and abd ROM Joint Mobilizations AC Comments R clavicle ant FM R GH jt Comments R post and inf glides w/IR & abd FM PT-OP-R Modalities Start: 07/04/23 17:57 Freq: Status: Active Protocol: Document 08/22/23 10:37 [facility] (Rec: 08/22/23 11:24 [facility] [id number]) Hot Pack/Cold Pack Treatment CP Location R shld Patient Position Supine Treatment Duration (minutes) 10 Patient Tolerance Good PT-OP-T Assessment and Plan Start: 07/04/23 17:57 Freq: Status: Active Protocol: Document 01/29/24 11:25 [facility] (Rec: 01/29/24 12:31 [facility] [id number]) Physical Therapy Assessment Goals quick dash Impairment 54.54 Short Term Goal (STG) Pt will improve quick dash score to no greater than 35 to show improved functional ability. 08/15- 65.9, pt reported he answered in referernce to RUE only this time compared to eval 10/02-much improved 36 STG Duration achieved to 29 11/25 Wet Pan Mixer Goal (LTG) Pt will improve quick dash score to no greater than 10 to show improved functional ability. 12/25-.18 LTG Duration improved to 11.4 strength Short Term Goal (STG) Pt will be indep w/HEP for strength and ROM per PT based on protocol. 08/15- progressing, ROM HEP added today STG Duration achieved when home; advancing as able Alf Goal (LTG) Pt will score at least 4+/5 on all MMT on RUE to show good start to progression of RUE strength to allow return to household activities w/o inc pain. 10/02-improving 11/25-improving 12/25-improved LTG Duration improved, has soreness w/ harder work, ER limited ROM Short Term Goal (STG) Pt will have full PROM with no more than 2/10 pain 08/15- progressing 10/02 mild pain end ranges slight limit STG Duration no pain mild tension Wet Pan Mixer Goal (LTG) Pt will have full AROM in order to allow pt to return overhead activities and dressing w/o inc pain. 10/02-no pain w/dressing imprvoinging 11/19/23: Progressing standing Rshld AROM: R 152 FF, 140 ABD, ER 77 deg, L2, (further with towel support). 11/25-much improved 12/25-imporved range but still limited-improved ability to work overhead LTG Duration mild sorenes w/overhead and behind back Assessment Summary Assessment Pt demonstrated much improved functional mobility and is less limited by R shoulder. Still has difficulty w/ overhead activities d/t dec ROM and encouraged to cont stretching. Overall strength good but still limited ER and pt encouraged to focus on ER exercises. encouraged to warm up before activities that have inc force like fishing. Physical Therapy Plan Discharge Physical Therapy Discharge Reasons Goals Met
== END 2024-01-31 15:15 | disposition home or self-care (01) ==
LOC: PHYS 11:15
PROVIDERS: Absent Provider Family Medicine; Family Provider Family Medicine; PCP Family Medicine; Referring Provider Orthopaedic Surgery; Visit Provider Orthopaedic Surgery
DX: M75.101 Unspecified rotator cuff tear or rupture of right shoulder, not specified as traumatic (principal); S46.811D Strain of other muscles, fascia and tendons at shoulder and upper arm level, right arm, subsequent encounter
CPT/HCPCS: 97110; 97112; 97140; 97162; 97535

== ENCOUNTER → 2024-07-03 11:55 | Outpatient (CLI) | payer MEDICARE, OTHER, SELFPAY ==
[2024-07-03 12:56] LABS: Add Manual Diff / Slide Review NO; Basophils Absolute Auto 0 /uL (0-100); Basophils Percent Auto 0.7 % (0-2); Eosinophils Absolute Auto 100 /uL (0-450); Eosinophils Percent Auto 2.1 % (2-4); Hematocrit 48.6 % (41-53); Hemoglobin 16.7 g/dL (13.5-17.5); Lymphocytes Absolute Auto 1200 /uL (1100-4500); Lymphocytes Percent Auto 29.5 % (25-40); Mean Corpuscular HGB Conc 34.4 % (30-36); Mean Corpuscular Hemoglobin 32.3 PG (26-34); Monocytes Absolute Auto 500 /uL (0-900); Monocytes Percent Auto 12.3 % (3-14); Neutrophils Absolute Auto 2200 /uL (1500-7000); Neutrophils Percent Auto 55.4 % (50-75); Platelet Count 232 X10^3/uL (150-400); Red Blood Cell Count 5.17 X10^6/uL (4.5-5.9); Red Cell Distribution Width 13.3 % (11.6-14.8)
[2024-07-03 13:21] LABS: Alanine Aminotransferase 29 IU/L (<50); Albumin 4.4 g/dL (3.5-5.0); Albumin Globulin Ratio 1.5 (1.0-2.8); Alkaline Phosphatase 57 U/L (38-126); Aspartate Aminotransferase 32 IU/L (17-59); Blood Urea Nitrogen 19 mg/dL (9-20); Calcium 9.8 mg/dL (8.4-10.2); Carbon Dioxide 26 mmol/L (22-32); Chloride 107 mmol/L (98-107); Cholesterol 260 mg/dL (140-199); Estimated Glomerular Filt Rate > 60 mL/min (>60); Glucose 117 mg/dL (80-110); HDL Cholesterol 59 mg/dL (40-60); HEMOLYSIS < 15 (0-50); LDL Cholesterol Calculated 168 mg/dL (<100); Sodium 140 mmol/L (137-145); Total Protein 7.4 g/dL (6.3-8.2); Triglycerides 165 mg/dL (35-150)
[2024-07-03 13:28] LABS: Potassium 5.6 mmol/L (3.4-5.1)
== END ==
PROVIDERS: Family Provider Family Medicine; PCP Family Medicine; Referring Provider Physician Assistant; Visit Provider Physician Assistant
DX: E78.5 Hyperlipidemia, unspecified (principal); E04.1 Nontoxic single thyroid nodule; D72.9 Disorder of white blood cells, unspecified; M76.31 Iliotibial band syndrome, right leg
CPT/HCPCS: 36415; 80053; 80061; 84443; 85025

== ENCOUNTER → 2025-02-19 10:38 | Outpatient (CLI) | payer MEDICARE, OTHER, SELFPAY ==
--- NOTE | 2025-02-19 10:41 | DI.US.S_ITS ---
PROCEDURE: US THYROID INDICATIONS: annual follow up exam from 11/26/23 TECHNIQUE: Real-time scanning was performed of the thyroid gland, with image documentation. COMPARISON: [facility], US, US THYROID, 11/26/2023, 9:05. FINDINGS: Thyroid: Right lobe measures 4.2 x 2.1 x 2.1 cm. Left lobe measures 4.2 x 1.4 x 1.4 cm. Isthmus is 0.6 cm thick. Echotexture is mildly heterogeneous.. Nodule number: 1 Location: Right midpole Size: 1.6 x 1.7 x 1.8 cm, previously 2.7 x 1.9 x 2.6 cm. Composition: Predominantly cystic Echogenicity: Anechoic Shape: wider than tall. Margins: Smooth Echogenic foci: No Total points: One ACR TI-RADS category: 0, benign Nodule number: 2 (previously described as nodule 5.) Location: Left inferior pole Size: 1.2 x 1.1 x 1.5 cm, previously 0.8 x 0.8 x 1.2 cm. This is due to increase in cystic component. Composition: Predominantly cystic Echogenicity: Anechoic Shape: wider than tall. Margins: Smooth Echogenic foci: No Total points: One ACR TI-RADS category: 0, benign Subcentimeter thyroid nodules are present, not detailed due to small size. IMPRESSION: Predominantly cystic thyroid nodules bilaterally without suspicious features. Continued follow-up at clinician's discretion, given size increase in the left nodule. ACR TI-RADS definitions and recommendations: TI-RADS 1 (benign): 0 points. FNA not needed. TI-RADS 2 (not suspicious): 2 points. FNA not needed. TI-RADS 3: 3 points. * FNA if 2.5 cm or larger, follow up if 1.5 cm or larger (at 1, 3, and 5 years). TI-RADS 4: 4-6 points. * FNA if 1.5 cm or larger, follow up if 1 cm or larger (at 1, 2, 3, and 5 years). TI-RADS 5: 7 points or more. * FNA if 1 cm or larger, follow up if 0.5 cm or larger (every year for 5 years). Dictated by: Hannah Moore M.D. on 02/19/2025 at 22:00 Approved by: Hannah Moore M.D. on 02/19/2025 at 22:10
== END ==
PROVIDERS: Family Provider Family Medicine; PCP Family Medicine; Referring Provider Family Medicine; Visit Provider Family Medicine
DX: E04.2 Nontoxic multinodular goiter (principal); R22.1 Localized swelling, mass and lump, neck
CPT/HCPCS: 76536